=== PATIENT | male | born 1960 | race Caucasian/White ===

== ENCOUNTER 2019-06-25 09:30 | Outpatient (CLI) | payer MEDICARE, SELFPAY ==
[2019-06-25 09:49] LABS: Hemoglobin A1C 5.9 % (<5.7)
[2019-06-25 16:15] LABS: Alanine Aminotransferase 25 U/L (16-63); Albumin Level 3.8 g/dL (3.4-5.0); Alkaline Phosphatase 86 U/L (46-116); Aspartate Amino Transferase 19 U/L (15-37); Bilirubin,Total 0.7 mg/dL (0.00-1.00); Blood Urea Nitrogen 11 mg/dL (7-18); Calcium 9.3 mg/dL (8.5-10.1); Carbon Dioxide 30 mmol/L (21-32); Cholesterol 175 mg/dL (0-200); Estimated Glomerular Filt Rate > 60; Glucose 105 mg/dL (70-99); HDL Direct 28 mg/dL (40-60); LDL Cholesterol Calculated 126 mg/dL (<130); Total Protein 7.5 g/dL (6.4-8.2); Triglycerides 107 mg/dL (0-150)
[2019-06-25 17:35] LABS: Anion Gap 15.4 mmol/L (7-16); Chloride 102 mmol/L (98-108); Osmolality Calculated 295 mOsm/kg (285-295); Potassium 4.4 mmol/L (3.5-5.1); Sodium 143 mmol/L (136-145)
== END 2019-06-25 09:31 | disposition home or self-care (01) ==
LOC: CHSLAB 09:31
PROVIDERS: PCP Internal Medicine; Visit Provider Internal Medicine
DX: E78.2 Mixed hyperlipidemia (principal); E11.9 Type 2 diabetes mellitus without complications
CPT/HCPCS: 36415; 80053; 80061; 83036

== ENCOUNTER 2019-09-13 09:37 | Outpatient (CLI) | payer MEDICARE, SELFPAY ==
[2019-09-13 09:57] LABS: Basophils Absolute Auto 0.03 K/mm3 (0.00-0.10); Basophils Percent Auto 0.3 % (0.0-1.0); Eosinophils Absolute Auto 0.22 K/mm3 (0.02-0.50); Eosinophils Percent Auto 2.1 % (1.0-6.0); Hematocrit 51.7 % (40.0-54.0); Hemoglobin 17.5 g/dL (14.0-18.0); Immature Granulocyte Absolute 0.04 K/mm3 (0.00-0.00); Immature Granulocyte Percent A 0.4 % (0.0-0.0); Lymphocytes Absolute Auto 2.45 K/mm3 (1.10-4.50); Lymphocytes Percent Auto 23.5 % (18.0-42.0); Mean Corpuscular HGB Conc 33.8 g/dL (32.0-36.0); Mean Corpuscular Hemoglobin 29.3 pg (27.0-31.0); Mean Corpuscular Volume 86.6 fL (78.0-102.0); Mean Platelet Volume 9.7 fl (8.7-11.0); Monocytes Absolute Auto 0.77 K/mm3 (0.10-0.90); Monocytes Percent Auto 7.4 % (2.0-11.0); Neutrophils Absolute Auto 6.9 K/mm3 (1.7-7.2); Neutrophils Percent Auto 66.3 % (50.0-70.0); Platelet Count Result 333 K/mm3 (150-420); Red Blood Count 5.97 M/mm3 (4.70-6.10); Red Cell Distribution Width 13.1 % (11.6-14.4); White Blood Count 10.4 K/mm3 (4.8-10.8)
[2019-09-13 09:58] LABS: Add Urine Microscopic? YES; Appearance Urine Clear (Clear); Bilirubin Urine Negative (Negative); Blood Urine Negative (Negative); Color Urine Yellow (Yellow); Glucose Urine UA Negative (Negative); Ketones Urine Negative (Negative); Leukocyte Esterase Ur Negative LEU/UL (Negative); Nitrate Urine Negative (Negative); Protein Urine 1+ (Negative)
[2019-09-13 10:08] LABS: Hemoglobin A1C 6.1 % (<5.7)
[2019-09-13 10:11] LABS: RBC Urine 0-2 /hpf (0-2); WBC Urine 0-3 /hpf (0-3)
[2019-09-13 10:12] LABS: Bacteria Urine Trace /hpf; Other Sediment Urine Spermatazoa /hpf
[2019-09-13 10:34] LABS: Creatinine Urine 172.75 mg/dL (40-278)
[2019-09-13 10:43] LABS: MALB Creatinine Ratio 7.5 mg/g (0-30)
[2019-09-13 11:03] LABS: Alanine Aminotransferase 26 U/L (16-63); Albumin Level 3.7 g/dL (3.4-5.0); Alkaline Phosphatase 89 U/L (46-116); Anion Gap 10.2 mmol/L (7-16); Aspartate Amino Transferase 21 U/L (15-37); Bilirubin,Total 0.9 mg/dL (0.00-1.00); Blood Urea Nitrogen 12 mg/dL (7-18); Carbon Dioxide 32 mmol/L (21-32); Chloride 101 mmol/L (98-108); Cholesterol 181 mg/dL (0-200); Creatine Kinase 176 U/L (39-308); Estimated Glomerular Filt Rate > 60; Glucose 103 mg/dL (70-99); HDL Direct 28 mg/dL (40-60); LDL Cholesterol Calculated 115 mg/dL (<130); Osmolality Calculated 287 mOsm/kg (285-295); Potassium 4.2 mmol/L (3.5-5.1); Prostate Specific Antigen 0.7 ng/mL (< OR = 4.0); Sodium 139 mmol/L (136-145); Total Protein 7.5 g/dL (6.4-8.2); Triglycerides 191 mg/dL (0-150); Uric Acid 6.5 mg/dL (3.5-7.2)
== END 2019-09-13 09:38 | disposition home or self-care (01) ==
PROVIDERS: PCP Internal Medicine; Visit Provider Internal Medicine
DX: E78.2 Mixed hyperlipidemia (principal); E79.0 Hyperuricemia without signs of inflammatory arthritis and tophaceous disease; I10 Essential (primary) hypertension; R73.01 Impaired fasting glucose; Z12.5 Encounter for screening for malignant neoplasm of prostate; N39.0 Urinary tract infection, site not specified
CPT/HCPCS: 36415; 80053; 80061; 81001; 82043; 82550; 83036; 84153; 84550; 85025; G0103

== ENCOUNTER 2020-03-20 11:13 | Outpatient (CLI) | payer MEDICARE, SELFPAY ==
[2020-03-20 11:29] LABS: Add Urine Microscopic? YES; Appearance Urine Clear (Clear); Bilirubin Urine Negative (Negative); Blood Urine Negative (Negative); Color Urine Yellow (Yellow); Glucose Urine UA Negative (Negative); Ketones Urine Trace (Negative); Leukocyte Esterase Ur Negative (Negative); Nitrate Urine Negative (Negative); Protein Urine 1+ (Negative)
[2020-03-20 11:33] LABS: Bacteria Urine Trace /hpf; RBC Urine 0-2 /hpf (0-2); WBC Urine 0-3 /hpf (0-3)
[2020-03-20 11:34] LABS: Mucus Urine Few /lpf
[2020-03-20 12:12] LABS: Hemoglobin A1C 5.9 % (<5.7)
[2020-03-20 12:27] LABS: Alanine Aminotransferase 20 U/L (16-63); Albumin Level 3.7 g/dL (3.4-5.0); Alkaline Phosphatase 76 U/L (46-116); Anion Gap 12 mmol/L (8-16); Aspartate Amino Transferase 19 U/L (15-37); Blood Urea Nitrogen 13 mg/dL (7-18); Calcium 9.1 mg/dL (8.5-10.1); Carbon Dioxide 25 mmol/L (21-32); Chloride 100 mmol/L (98-108); Cholesterol 143 mg/dL (0-200); Estimated Glomerular Filt Rate > 60; Glucose 150 mg/dL (70-99); HDL Direct 24 mg/dL (40-60); LDL Cholesterol Calculated 99 mg/dL (<130); Osmolality Calculated 287 mOsm/kg (285-295); Potassium 4.2 mmol/L (3.5-5.1); Sodium 137 mmol/L (136-145); Total Protein 7.3 g/dL (6.4-8.2); Triglycerides 101 mg/dL (0-150); Uric Acid 6.1 mg/dL (3.5-7.2)
== END 2020-03-20 11:14 | disposition home or self-care (01) ==
LOC: CHSLAB 11:16
PROVIDERS: PCP Internal Medicine; Visit Provider Internal Medicine
DX: E11.9 Type 2 diabetes mellitus without complications (principal); E78.2 Mixed hyperlipidemia; I10 Essential (primary) hypertension; E79.0 Hyperuricemia without signs of inflammatory arthritis and tophaceous disease
CPT/HCPCS: 36415; 80053; 80061; 81001; 83036; 84550

== ENCOUNTER 2020-04-11 14:50 | Emergency (ER) | payer MEDICARE, MEDICAID, SELFPAY ==
--- NOTE | ~2020-04-11 | XR_ITS ---
EXAMINATION: XR chest 1V portable INDICATION: Lower limb swelling TECHNIQUE: Portable AP chest at 1537 hours COMPARISON: None available FINDINGS: Cardiomegaly is noted. There is a mild diffuse interstitial pattern. No focal airspace opac ities are identified. There is no pleural effusion or pneumothorax. IMPRESSION: 1. Cardiomegaly with mild pulmonary edema. Reviewed, dictated and finalized at location A. L SECRETARY RECEPTIONIST
[2020-04-11 15:00] VITALS: BP 159/111; PULSE 113; RESP 20; TEMP 36.6; O2SAT 100
--- NOTE | 2020-04-11 15:16 | ED.EXTPRO ---
HPI - Extremity Problem General Chief complaint: Extremity Problem,Nontraumatic Stated complaint: AMB Source: patient Mode of arrival: EMS Limitations: no limitations History of Present Illness HPI Narrative: Pt presents with recent history of blisters on top of feet. He had guillan barre in the late and has regained some strength but not too much. He can transfer, and walk a little with the aid of crutches, but is mostly bed bound. He had on his tet hose and noticed they were bunched up. he took them off and his legs began to swell. They got more swollen and he elevated them, then began to notice these clear fluid pockets developing. He has not haad heat or cold exposure, no traume to the area, and has no other illness. He said they are not painful at all, and tells me he has good feeling in his feet. He feels at his baseline otherwise. He is SOB- but this is chronic for him, and states it is his baseline. He has no CP, or any other findings. MD Complaint: extremity swelling Onset (ago): hour(s) Location: left and right Radiation: none (no pain at all, just noticed swelling blisters) Relieving factors: nothing Associated symptoms: denies other symptoms Related Data Home Medications Medication Instructions Recorded Confirmed allopurinol 200 mg PO BID 04/11/20 04/11/20 amlodipine 10 mg PO DAILY 04/11/20 04/11/20 amoxicillin-pot clavulanate 1 tablet PO BID 04/11/20 04/11/20 atorvastatin 20 mg PO DAILY 04/11/20 04/11/20 bupropion HCl 150 mg PO BID 04/11/20 04/11/20 famotidine 20 mg PO BID 04/11/20 04/11/20 hydralazine 100 mg PO QID 04/11/20 04/11/20 paroxetine HCl 40 mg PO DAILY 04/11/20 04/11/20 tizanidine 4 mg PO Q8-10H PRN 04/11/20 04/11/20 Allergies Allergy/AdvReac Type Severity Reaction Status Date / Time No Known Allergies Allergy Unverified 06/13/14 09:17 Review of Systems Review of Systems: All systems reviewed & are unremarkable except as noted in HPI and below Cardiovascular: Cardiovascular: Reports no additional cardiovascular complaints Respiratory: Respiratory: Reports no additional respiratory complaints Comments: always sob with any exertion- he says he doesnt do much activity so anything makes him SOB Gastrointestinal: Gastrointestinal: Reports no additional gastrointestinal complaints Genitourinary: Genitourinary: Reports as per HPI Musculoskeletal: Musculoskeletal: Reports no additional musculoskeletal complaints Integumentary/Breasts: Skin/Breast: Reports system reviewed and no additional complaints, except as docu Comments: clear blisters on top of bilat feet Neurologic: Reports system reviewed and no additional complaints, except as documented Psychiatric: Psychiatric: Reports no additional psychiatric complaints Endocrine: Endocrine: Reports no additional endocrine complaints Hematologic/Lymphatic: Hematologic/Lymphatic: Reports no additional hematologic/lymphatic complaints Allergic/Immunologic: Allergic/Immunologic: Reports no additional allergic/immunologic complaints [facility] Past Medical History Medical History (Updated 04/11/20 @ 16:11 by Kathryn Lo MD) 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 History of alcohol abuse History of recent pneumonia Shortness of breath Social History Social History (Updated 04/11/20 @ 15:24 by Kathryn Lo MD) Smoking status: Never smoker Alcohol intake: former Alcohol use details: quit 1 month ago Substance use: never Exam Const: General: no acute distress and alert Orientation/consciousness: patient oriented x3 HENMT: Head: normal to inspection Mouth: Yes moist mucous membranes Eyes: Conjunctivae: conjunctivae normal Pupils: Equal, round and reactive pupils present EOM: EOMs intact bilaterally Neck: Neck: normal visual inspection Chest: Chest palpation & inspection: normal inspection of the chest Resp: Effort & Inspection: labored (but pt states this is baseline) Auscultation: clear to auscultation
[2020-04-11 15:30] LABS: Basophils Absolute Auto 0.03 K/mm3 (0.00-0.10); Basophils Percent Auto 0.4 % (0.0-1.0); Eosinophils Absolute Auto 0.11 K/mm3 (0.02-0.50); Eosinophils Percent Auto 1.3 % (1.0-6.0); Hematocrit 50.3 % (40.0-54.0); Hemoglobin 15.8 g/dL (14.0-18.0); Immature Granulocyte Absolute 0.03 K/mm3 (0.00-0.00); Immature Granulocyte Percent A 0.4 % (0.0-0.0); Lymphocytes Absolute Auto 1.87 K/mm3 (1.10-4.50); Mean Corpuscular HGB Conc 31.4 g/dL (32.0-36.0); Mean Corpuscular Hemoglobin 27.9 pg (27.0-31.0); Mean Corpuscular Volume 88.7 fL (78.0-102.0); Mean Platelet Volume 9.7 fl (8.7-11.0); Monocytes Absolute Auto 0.83 K/mm3 (0.10-0.90); Monocytes Percent Auto 9.8 % (2.0-11.0); Neutrophils Absolute Auto 5.6 K/mm3 (1.7-7.2); Neutrophils Percent Auto 66.1 % (50.0-70.0); Platelet Count Result 399 K/mm3 (150-420); Red Blood Count 5.67 M/mm3 (4.70-6.10); Red Cell Distribution Width 14.3 % (11.6-14.4); White Blood Count 8.5 K/mm3 (4.8-10.8)
[2020-04-11 15:45] LABS: Alanine Aminotransferase 39 U/L (16-63); Albumin Level 3.4 g/dL (3.4-5.0); Alkaline Phosphatase 72 U/L (46-116); Anion Gap 10 mmol/L (8-16); Aspartate Amino Transferase 27 U/L (15-37); Bilirubin,Total 1.1 mg/dL (0.00-1.00); Blood Urea Nitrogen 19 mg/dL (7-18); Calcium 9.2 mg/dL (8.5-10.1); Carbon Dioxide 29 mmol/L (21-32); Chloride 102 mmol/L (98-108); Estimated Glomerular Filt Rate > 60; Glucose 156 mg/dL (70-99); Osmolality Calculated 297 mOsm/kg (285-295); Potassium 4.3 mmol/L (3.5-5.1); Sodium 141 mmol/L (136-145); Total Protein 7.3 g/dL (6.4-8.2)
[2020-04-11 15:47] LABS: BNP 460 pg/mL (0-100)
[2020-04-11] MEDS: FUROSEMIDE 40 MG TABLET PO (16:09)
[2020-04-11 16:25] VITALS: RESP 17
== END 2020-04-11 16:30 | disposition home or self-care (01) ==
PROVIDERS: Emergency Provider Emergency Medicine; PCP Internal Medicine
DX: S90.822A Blister (nonthermal), left foot, initial encounter (principal); S90.821A Blister (nonthermal), right foot, initial encounter; R60.0 Localized edema; R06.02 Shortness of breath
CPT/HCPCS: 10160; 36415; 71045; 80053; 83880; 85025; 87070; 87205; 99282; 99283; A9270

== ENCOUNTER 2020-04-22 11:56 | Outpatient (CLI) | payer MEDICARE, MEDICAID, SELFPAY ==
--- NOTE | ~2020-04-22 | US_ITS ---
EXAMINATION: US venous doppler [facility] DATE: 04/22/2020 13:06 INDICATION: Lower limb pain and swelling TECHNIQUE: Grayscale ultrasound images without and with compression and Doppler ultrasound images of the bilateral lower extremity veins were obtained. COMPARISON: None. FINDINGS: The visualized portions of right common femoral vein, profunda (deep) femoral vein, femoral vein, pop liteal vein, posterior tibial veins, peroneal veins, gastrocnemius vein and greater saphenous vein ou tflow are patent. The visualized portions of left common femoral vein, profunda femoral vein, femoral vein, popliteal v ein, posterior tibial veins, peroneal veins, gastrocnemius vein and greater saphenous vein outflow ar e patent. IMPRESSION: 1. No deep venous thrombosis in either lower limb. Reviewed, dictated and finalized at location A. UME MAKER
--- NOTE | ~2020-04-22 | CT_ITS ---
EXAMINATION: CTA abd aorta runoff DATE: 04/22/2020 13:39 INDICATION: Peripheral arterial occlusive disease and clinically ischemic feet with lower limb pain a nd swelling TECHNIQUE: Computed tomographic angiography (CTA) of the abdominal, pelvis, and both lower extremitie s was performed with 125 mL Omnipaque 350 intravenous contrast. Automated exposure control and iterat curt reconstruction technique were employed. The dose-length product was mGy-cm. COMPARISON: None. FINDINGS: ABDOMINAL AORTA AND ITS BRANCHES: Normal caliber abdominal aorta with minimal scattered plaque without stenosis. There is also no signi ficant stenosis at the celiac axis, superior mesenteric, inferior mesenteric and bilateral renal tinana magalys. PELVIC VASCULATURE: Mild atherosclerotic plaque with mild opacities (<50%) stenosis at the proximal right common iliac, a t the distal left iliac artery at the bifurcation. No significant stenosis along the bilateral program developer al or internal iliac arteries. There appears to be a high-grade stenosis if not short segmental occlu eveline along the proximal right obturator artery. RIGHT LOWER EXTREMITY: There is scattered atherosclerotic plaque along the right common femoral, superficial femoral and pro ximal to mid popliteal arteries with <50% stenosis. Focal atherosclerotic plaque with moderate 50-70% stenosis at the distalmost right popliteal artery extending into the proximal anterior tibial artery with runoff anterior tibial artery extending below the ankle into the dorsalis pedis artery. There i s high attenuation seen along the periphery of the right posterior tibial artery and along portions o f the peroneal artery likely representing vascular ossification with no evident central contrast or c ontrast along the course of the arteries where there is no calcification in the proximal third of the calf consistent with occlusion. There appears to be reconstitution of flow in both the right posteri or tibial and peroneal arteries by collaterals in the mid to distal calf. The more distal posterior t ibial and peroneal arteries appear atretic to the level of the ankle. LEFT LOWER EXTREMITY: Similar scattered atherosclerotic plaque along the left common femoral, superficial femoral and proxi mal to mid popliteal artery with <50% stenosis. There is also a moderate, 50-70% stenosis at the bifu rcation of the distal left popliteal artery. Scattered mild atherosclerotic plaque along the left ant erior tibial artery with runoff below the ankle. Severe >70% stenosis at the tibioperoneal trunk with barely discernible contrast seen along the course of the atretic left peroneal artery. The left post erior tibial artery is occluded to below the level of the ankle with reconstitution of flow in the pl meet artery in the left hindfoot via collaterals. ADDITIONAL FINDINGS: Small right pleural effusion with passive atelectasis in the dependent right lower lobe. Tiny left pl eural effusion. Borderline heart size. Atherosclerotic coronary artery calcification. No pericardial effusion. Diffuse body wall edema extending from the lower thorax without the abdomen and pelvis, scr otum and into the bilateral lower limbs. Small amount of ascites in the abdomen and pelvis. Multiple gallstones in the nearly decompressed gallbladder with no pericholecystic inflammatory change to sugg est acute cholecystitis. Liver, spleen, pancreas, bilateral adrenal glands and left kidney are normal . 1.4 cm exophytic right renal cyst. No bowel obstruction. Bladder is unremarkable. Mild scattered de generative skeletal changes. IMPRESSION: 1. Atherosclerotic disease with relatively symmetric pattern of moderate grade stenosis at the dista lmost bilateral popliteal arteries and with occlusion of the bilateral posterior tibial and left clint yani arteries. 2. Anasarca with small right and tiny left pleural effusions, extensive body
[2020-04-22 12:08] LABS: Basophils Absolute Auto 0.02 K/mm3 (0.00-0.10); Basophils Percent Auto 0.2 % (0.0-1.0); Eosinophils Absolute Auto 0.04 K/mm3 (0.02-0.50); Eosinophils Percent Auto 0.4 % (1.0-6.0); Hematocrit 50.2 % (40.0-54.0); Hemoglobin 16.1 g/dL (14.0-18.0); Immature Granulocyte Absolute 0.03 K/mm3 (0.00-0.00); Immature Granulocyte Percent A 0.3 % (0.0-0.0); Lymphocytes Absolute Auto 1.32 K/mm3 (1.10-4.50); Lymphocytes Percent Auto 14.3 % (18.0-42.0); Mean Corpuscular HGB Conc 32.1 g/dL (32.0-36.0); Mean Corpuscular Hemoglobin 27.8 pg (27.0-31.0); Mean Corpuscular Volume 86.6 fL (78.0-102.0); Mean Platelet Volume 9.8 fl (8.7-11.0); Monocytes Absolute Auto 0.76 K/mm3 (0.10-0.90); Monocytes Percent Auto 8.2 % (2.0-11.0); Neutrophils Absolute Auto 7.1 K/mm3 (1.7-7.2); Neutrophils Percent Auto 76.6 % (50.0-70.0); Platelet Count Result 342 K/mm3 (150-420); Red Cell Distribution Width 14.7 % (11.6-14.4); White Blood Count 9.2 K/mm3 (4.8-10.8)
[2020-04-22 12:21] LABS: Estimated Glomerular Filt Rate > 60
[2020-04-22 12:25] LABS: Alanine Aminotransferase 24 U/L (16-63); Albumin Level 3.5 g/dL (3.4-5.0); Alkaline Phosphatase 70 U/L (46-116); Anion Gap 12 mmol/L (8-16); Aspartate Amino Transferase 27 U/L (15-37); Bilirubin,Total 1.2 mg/dL (0.00-1.00); Blood Urea Nitrogen 19 mg/dL (7-18); Calcium 9.4 mg/dL (8.5-10.1); Carbon Dioxide 27 mmol/L (21-32); Chloride 99 mmol/L (98-108); Glucose 94 mg/dL (70-99); Osmolality Calculated 288 mOsm/kg (285-295); Potassium 3.8 mmol/L (3.5-5.1); Sodium 138 mmol/L (136-145); Total Protein 7.1 g/dL (6.4-8.2)
[2020-04-22 12:54] LABS: D Dimer 1.56 mg/L (0.19-0.50)
== END 2020-04-22 11:57 | disposition home or self-care (01) ==
LOC: CHSLAB 11:58
PROVIDERS: PCP Internal Medicine; Visit Provider Internal Medicine
DX: I73.9 Peripheral vascular disease, unspecified (principal); M79.89 Other specified soft tissue disorders; M79.605 Pain in left leg; M79.604 Pain in right leg
CPT/HCPCS: 36415; 75635; 80053; 85025; 85380; 93970; Q9967

== ENCOUNTER 2020-04-22 15:41 | Inpatient (IN) | payer MEDICARE, MEDICAID, SELFPAY ==
--- NOTE | ~2020-04-22 | US_ITS ---
EXAMINATION: US arterial ankle brachial ind DATE: 04/23/2020 14:35 INDICATION: Arterial stenosis with bilateral foot ulcers TECHNIQUE: Segmental pressures and plethysmographic and Doppler waveforms of the brachial and lower e xtremity arteries were obtained. COMPARISON: None. FINDINGS: Right and left brachial artery pressures of 135 mm Hg and 144 mm Hg, respectively, are concordant (no rmal difference <= 30 mmHg). The right ankle-brachial index (ALEJANDRA) is 1.15 (normal >= 0.9-1.0). The right great toe-brachial index (TBI) is 0.75 (normal >= 0.65). Arterial Doppler waveforms are biphasic with brisk systolic upstrokes at both the right posterior tibial and dorsalis pedis arteries. The left ALEJANDRA is 1.10. The left TBI is 0.70. Arterial Doppler waveforms are inadequately visualized fo r assessment. IMPRESSION: 1. No significant arterial occlusive disease to the lower limbs with normal bilateral ABIs and TBIs. Reviewed, dictated and finalized at location A. AL TRANSPORTATION MANAGER IMPRESSION: 1. No significant arterial occlusive disease to the lower limbs with normal shanel ateral ABIs and TBIs.
--- NOTE | ~2020-04-22 | CT_ITS ---
EXAMINATION: CTA chest PE protocol EXAM DATE: 04/23/2020 10:07 INDICATION: Shortness of breath. TECHNIQUE: Spiral CTA of the chest (pulmonary arteries) was performed with 100 cc Omnipaque 350 intr avenous contrast injection. Images were acquired during the pulmonary arterial phase. Coronal maxi mum intensity projection 3D-reconstructions were created by the technologist on dedicated workstation . Axial, coronal and sagittal reformatted images were reviewed. The dose-length product (DLP) for t his examination was 1128.70 mGy-cm. The exposure was tailored according to patient size (auto mA ex posure control), and iterative reconstruction (ASIR) was used as additional dose reduction technique. Correlation is made to chest x-ray from 04/11/2020. FINDINGS: Pulmonary arteries are well opacified and without intraluminal filling defects. No thora cic aortic dissection. There is small to moderate pleural effusion, with adjacent right lower lobe c ompressive atelectasis. Small pericardial effusion. Tracheobronchial tree is patent. There is no m ediastinal, hilar or axillary lymphadenopathy. There is no pneumothorax. There is cardiomegaly. There is mild to moderate coronary arterial calcification, arterial sclerosis. Small to moderate amou nt of perihepatic ascites. Cholelithiasis. There is thoracic spondylosis without osteoblastic or ost eolytic lesions identified. IMPRESSION: 1. Small to moderate pleural effusion, adjacent segmental atelectasis. 2. Cardiomegaly. Small pericardial effusion. 3. Small to moderate perihepatic ascites. 4. Cholelithiasis. Reviewed, dictated and finalized at location B. PLATER
--- NOTE | 2020-04-22 16:19 | ECG_ITS ---
Measurements Intervals [place] Rate: 108 P: 67 [place]: 156 QRS: -41 QRSD: 105 T: 95 QT: 367 QTc: 493 Interpretive Statements SINUS TACHYCARDIA INCOMPLETE RIGHT BUNDLE BRANCH BLOCK LOW QRS VOLTAGE IN PRECORDIAL LEADS ANTEROLATERAL INFARCT, AGE INDETERMINATE INFERIOR INFARCT, AGE INDETERMINATE BORDERLINE ST-T WAVE ABNORMALITY- HIGH LATERAL LEADS ABNORMAL ECG Electronically Signed On 04-22-2020 16:35:00 PRINCIPAL PRODUCT MANAGER by Silvino Trotter D.O.
[2020-04-22 17:16] VITALS: BP 140/90; PULSE 90; RESP 18; TEMP 38.3; O2SAT 95
[2020-04-22 17:31] LABS: BNP 600 pg/mL (0-100); INR 1.5; Partial Thromboplastin Time 32.5 SEC (23.90-30.70); Prothrombin Time 15.7 Seconds (9.50-12.10)
[2020-04-22 17:32] LABS: Lactic Acid Reflex 2.3 mmol/L (0.4-2.0)
[2020-04-22 17:33] LABS: Troponin I 31.4 ng/L (0.00-60.4)
[2020-04-22 19:10] VITALS: BP 142/90; PULSE 102; RESP 22; TEMP 38.2; O2SAT 98
--- NOTE | 2020-04-22 19:10 | ED.GENADULT ---
HPI - General Adult General Chief complaint: Unspecified Stated complaint: sent by doctors Source: patient Mode of arrival: ambulatory Limitations: no limitations History of Present Illness HPI narrative: Patient is sent over from Dr Mcgraw's office after being seen earlier today. He has complained of not feeling well. He has had some mild shortness of breath over the past couple of days and has stated that his feet have been swollen which he noticed starting this am. He has had no chest pain. Onset (ago): hour(s) Location: lower extremity Quality: burning Pain Consistency: constant Relieving factors: none Related Data Home Medications Medication Instructions Recorded Confirmed allopurinol [Zyloprim] 200 mg PO BID 04/11/20 04/22/20 amlodipine [Norvasc] 10 mg PO DAILY 04/11/20 04/22/20 amoxicillin-pot clavulanate 1 tablet PO BID 04/11/20 04/22/20 atorvastatin 20 mg PO DAILY 04/11/20 04/22/20 bupropion HCl 150 mg PO BID 04/11/20 04/22/20 famotidine 20 mg PO BID 04/11/20 04/22/20 hydralazine 100 mg PO QID 04/11/20 04/22/20 paroxetine HCl 40 mg PO DAILY 04/11/20 04/22/20 tizanidine 4 mg PO Q8-10H PRN 04/11/20 04/22/20 Allergies Allergy/AdvReac Type Severity Reaction Status Date / Time No Known Allergies Allergy Unverified 06/13/14 09:17 Review of Systems Constitutional: Constitutional: Reports body ache(s), Reports fatigue and Reports lethargy Eyes: Eyes: Reports no additional eye complaints ENT: Reports system reviewed and no additional complaints, except as documented Cardiovascular: Cardiovascular: Reports no additional cardiovascular complaints Respiratory: Respiratory: Reports no additional respiratory complaints Gastrointestinal: Gastrointestinal: Reports no additional gastrointestinal complaints Genitourinary: Genitourinary: Reports no additional male genitourinary complaints Musculoskeletal: Musculoskeletal: Reports no additional musculoskeletal complaints Integumentary/Breasts: Skin/Breast: Reports system reviewed and no additional complaints, except as docu Neurologic: Reports system reviewed and no additional complaints, except as documented Psychiatric: Psychiatric: Reports no additional psychiatric complaints Endocrine: Endocrine: Reports no additional endocrine complaints Hematologic/Lymphatic: Hematologic/Lymphatic: Reports no additional hematologic/lymphatic complaints Allergic/Immunologic: Allergic/Immunologic: Reports no additional allergic/immunologic complaints [facility] Past Medical History Medical History 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 History of alcohol abuse History of recent pneumonia Shortness of breath Family History Family History (Updated 04/23/20 @ 05:58 by Joaquín Umaña MD) Father Family history non-contributory Social History Social History Smoking packs per day: 1 Smoking cigarettes per day: 20.0 Smoking status: Former smoker Tobacco type: cigarettes Smokeless tobacco user: chewing tobacco Second hand tobacco smoke exposure: No Smoking end date: 02/28/94 Alcohol intake: former Substance use: former Gender identity (if verbalized by the patient): Male Sexual Orientation (if Verbalized by the Patient): Straight or Heterosexual Spiritual care concerns: No Exam Const: General: cooperative, no acute distress, well developed and alert Nutritional Appearance: obese Orientation/consciousness: oriented to person and oriented to place Limitations: no limitations HENMT: Head: normal to inspection, normocephalic and atraumatic Ears: external ears normal General nose exam: Normal external nose present Face and sinus: normal facial exam Mouth: Yes Normal oral and palatal mucosa present and Yes oropharynx normal Throat: posterior oropharynx normal Eyes: General: appearance normal, both eyes and all related structures Neck: Neck: normal visual ins
[2020-04-22] MEDS: POTASSIUM CHLORIDE 20 MEQ TABLET 40 MEQ PO (19:23)
[2020-04-22] MEDS: FUROSEMIDE INJ 40 MG/4 ML VIAL IV PUSH (19:23)
[2020-04-22 19:52] VITALS: BMI 42.7
--- NOTE | 2020-04-22 19:57 | ADMGEN ---
This patient, Otis Diaz, was admitted to 2nd Floor Room 204-2. Patient oriented to hospital policies and general routines including ID bracelet, bed and alarms, visiting hours, pain management, procedures, bathroom and other care routines, personal items, smoking policy, room service/diet, and visiting hours. Information on how to activate the Rapid Response Team has been discussed. Patient are encouraged to report perceived risks to care and to ask questions if they do not understand what they are told or what they should do.
[2020-04-22 20:00] VITALS: BP 142/86; PULSE 106; RESP 20; TEMP 36; O2SAT 99
[2020-04-22 20:10] LABS: Reflex Lactic Acid Yes or No Add Lactic
[2020-04-22 21:08] LABS: Add Urine Microscopic? NO; Appearance Urine Clear (Clear); Bilirubin Urine Negative (Negative); Blood Urine Negative (Negative); Color Urine Yellow (Yellow); Glucose Urine UA Negative (Negative); Ketones Urine Negative (Negative); Leukocyte Esterase Ur Negative (Negative); Nitrate Urine Negative (Negative); Protein Urine Negative (Negative)
--- NOTE | 2020-04-22 21:30 | PC.NURSE ---
Bilateral feet are shiny, edematous and very red. Each foot has a popped blister on the top which has a scant amount of serous/clear drainage. Both feet cleansed with saf-clens, then a non-adherent pad, gauze pads and gauze roll applied. Patient tolerated well and slept through most of the dressing changes.
[2020-04-22] MEDS: hydrALAZINE HCL 25 MG TABLET 100 MG PO (21:47)
[2020-04-22 23:58] VITALS: BP 144/95; PULSE 102; RESP 22; TEMP 36.3; O2SAT 97
[2020-04-23] VITALS (8 sets, daily range): BP systolic 130–145; BP diastolic 84–114; PULSE 97–108; RESP 18–20; TEMP 36.1–37.1; O2SAT 95–97
[2020-04-23 06:22] LABS: Anion Gap 14 mmol/L (8-16); Blood Urea Nitrogen 15 mg/dL (7-18); Calcium 9.5 mg/dL (8.5-10.1); Carbon Dioxide 24 mmol/L (21-32); Chloride 102 mmol/L (98-108); Estimated CRCL calculation 90 ml/min; Estimated Glomerular Filt Rate > 60; Glucose 108 mg/dL (70-99); Lactic Acid Reflex 1.4 mmol/L (0.4-2.0); Magnesium 1.7 mg/dL (1.8-2.4); Osmolality Calculated 291 mOsm/kg (285-295); Potassium 4.1 mmol/L (3.5-5.1); Sodium 140 mmol/L (136-145)
[2020-04-23 06:32] LABS: Troponin I 33.2 ng/L (0.00-60.4)
--- NOTE | 2020-04-23 08:10 | ECHO_ITS ---
Patient Info Name: Otis Diaz Age: 59 years : 1960 Gender: Male Ht: 68 in Wt: 281 lbs BSA: 2.54 m2 HR: 148 bpm BP: 145 / 114 mmHg Heart Rhythm: Sinus Rhythm Technical Quality: Fair Exam Date: 04/23/2020 8:52 AM Exam Location: [facility] [place] Patient Status: Inpatient Admit Date: 04/22/2020 Staff Ordering Physician: Irma Rivas Director Of Rehabilitation And Wellness: Aissatou Lan RDCS Attending Provider: Joaquín Umaña MD Referring Physician: Rob LONG; Exam Type: CA echo doppler color flow Study Info Indications R60.9 - Edema, unspecified Complete two-dimensional, color flow and Doppler transthoracic echocardiogram is performed. Strain analysis performed. History/Risk Factors Hypertension: No Dyslipidemia: No Congenital Heart Disease (CHD): No Chronic Lung Disease: No Obesity: Yes Renal Disease: No Coronary Artery Disease (CAD) No Congestive Heart Failure (CHF): No Cardiomyopathy/LV Systolic Dysfunction: No Diabetes Mellitus: No COPD: No Tobacco Use: Former Cerebrovascular Disease: No Deep Vein Thrombosis (DVT): None Dialysis: None Frailty Scale (CSHA): 4: Vulnerable Cardiac Arrest: No Summary 1. Complete two-dimensional, color flow and Doppler transthoracic echocardiogram is performed. 2. Left ventricular chamber dimension is severely enlarged. 3. Anteroseptal, septal and apical wall are akinetic. 4. Left ventricular systolic function is severely reduced, estimated at 30-35%. 5. There is mildly increased left ventricular wall thickness. 6. The left ventricular diastolic function is indeterminate. 7. Global longitudinal strain is abnormal at -6.6%. 8. Left atrial chamber dimension is moderately enlarged. 9. There is mild aortic valve sclerosis. 10. The mitral valve has mildly thickened leaflets. 11. There is mild to moderate mitral valve regurgitation. 12. There is mild to moderate tricuspid valve regurgitation. 13. Mild pulmonary hypertension, estimated pulmonary arterial systolic pressure is 43 mmHg. 14. There is trace pulmonic regurgitation. 15. Dilated inferior vena cava with >50% collapse upon inspiration consistent with elevated right atrial pressure, 10 mmHg. Left Ventricle Tissue doppler is not performed. Global longitudinal strain is abnormal at -6.6%. Anteroseptal, septal and apical wall are akinetic. Left ventricular chamber dimension is severely enlarged. Left ventricular systolic function is severely reduced, estimated at 30-35%. There is mildly increased left ventricular wall thickness. The left ventricular diastolic function is indeterminate. Right Ventricle Right ventricular chamber dimension is not well visualized. Left Atria Left atrial chamber dimension is moderately enlarged. Right Atria Right atrial chamber dimension is not well visualized. Aortic Valve The aortic valve is trileaflet. There is mild aortic valve sclerosis. There is no aortic valve stenosis. There is no aortic valve regurgitation. Pulmonic Valve There is trace pulmonic regurgitation. Mitral Valve The mitral valve has mildly thickened leaflets. There is no mitral valve stenosis. There is mild to moderate mitral valve regurgitation. Tricuspid Valve There is mild to moderate tricuspid valve regurgitation. Mild pulmonary hypertension, estimated pulmonary arterial systolic pressure is 43 mmHg. Pericardium/Pleural There is no pericardial effusion.
[2020-04-23] MEDS: FUROSEMIDE INJ 40 MG/4 ML VIAL IV PUSH ×2 (10:10→16:57)
[2020-04-23] MEDS: hydrALAZINE HCL 25 MG TABLET 100 MG PO ×4 (10:10→21:23)
[2020-04-23] MEDS: carvediloL 3.125 MG TABLET PO ×2 (10:10→21:23)
[2020-04-23] MEDS: ENOXAPARIN 40 MG/0.4 ML SYRINGE SUB-Q (10:10)
[2020-04-23] MEDS: POTASSIUM CHLORIDE 20 MEQ TABLET 40 MEQ PO ×2 (10:11→16:58)
[2020-04-23] MEDS: PARoxetine 20 MG TABLET 40 MG PO (10:11)
[2020-04-23] MEDS: amLODIPine BESYLATE 5 MG TABLET 10 MG PO (10:11)
[2020-04-23] MEDS: MAGNESIUM OXIDE 400 MG TABLET PO (10:12)
[2020-04-23] MEDS: allopurinoL 100 MG TABLET 200 MG PO ×2 (10:12→16:59)
[2020-04-23] MEDS: FAMOTIDINE 20 MG TABLET PO ×2 (10:12→16:59)
[2020-04-23] MEDS: ATORVASTATIN 10 MG TABLET 20 MG PO (10:12)
--- NOTE | 2020-04-23 13:15 | PM.IMHP ---
H&P: HPI History of Present Illness Date/Time: 04/23/20 13:15 Chief Complaint: PAD, congestive heart failure, cellulitis Narrative: Otis Diaz is a 59 year old male that presented to his primary care physician with complaints of lower extremity swelling and redness. Patient has a past medical history of Yury Dyer syndrome, history of alcohol abuse and pneumonia and shortness of breath. According to patient he started experiencing edema with erythema and shortness of breath a couple days ago. Patient did visit our ED on 03-11 and the I&D was completed on patient's lower extremity patient was given Bactrim at that time. Patient condition has not improved. His WBC on admission was 9.2 his D-dimer was 1.56, sodium 138, potassium 3.8, BUN 19, creatinine 1.12 lactic acid 2.3, BUN 600. The patient denies SOB, CP, palpitation, extremity numbness, lightheadedness, dizziness, constipation, diarrhea, chills, or fever. Spoke with patient's primary care physician Dr. Mcgraw recommended that the patient be transferred to [facility] for consult for vascular surgery. Spoke with the hospitalist over at [facility] she recommend a ALEJANDRA be completed on patient . She also notes the patient should follow-up with vascular surgeon as outpatient . Lower extremity blood flow checked with Doppler left leg sluggish right leg weak pulse. 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 History of alcohol abuse History of recent pneumonia Shortness of breath Family History Family History (Updated 04/23/20 @ 05:58 by Joaquín Umaña MD) Father Family history non-contributory Social History Social History Smoking packs per day: 1 Smoking cigarettes per day: 20.0 Smoking status: Former smoker Tobacco type: cigarettes Smokeless tobacco user: chewing tobacco Second hand tobacco smoke exposure: No Smoking end date: 02/28/94 Alcohol intake: former Substance use: former Gender identity (if verbalized by the patient): Male Sexual Orientation (if Verbalized by the Patient): Straight or Heterosexual Spiritual care concerns: No Meds Home Medications and Allergies Home Medications Medication Instructions Recorded Confirmed Type allopurinol [Zyloprim] 200 mg PO BID 04/11/20 04/22/20 History amlodipine [Norvasc] 10 mg PO DAILY 04/11/20 04/22/20 History amoxicillin-pot clavulanate 1 tablet PO BID 04/11/20 04/22/20 History atorvastatin 20 mg PO DAILY 04/11/20 04/22/20 History bupropion HCl 150 mg PO BID 04/11/20 04/22/20 History famotidine 20 mg PO BID 04/11/20 04/22/20 History hydralazine 100 mg PO QID 04/11/20 04/22/20 History paroxetine HCl 40 mg PO DAILY 04/11/20 04/22/20 History tizanidine 4 mg PO Q8-10H PRN 04/11/20 04/22/20 History Allergies Allergy/AdvReac Type Severity Reaction Status Date / Time No Known Allergies Allergy Unverified 06/13/14 09:17 Vital Signs Vital Signs - 24 hr 04/22/20 17:16 04/22/20 19:10 04/22/20 20:00 Temperature 100.9 F H 100.8 F H 96.8 F L Pulse Rate 90 102 H 106 H Respiratory Rate 18 22 H 20 Blood Pressure 140/90 142/90 H 142/86 H Pulse Oximetry 95 98 99 04/22/20 23:58 04/23/20 04:00 04/23/20 07:35 Temperature 97.3 F L 97.6 F 97.3 F L Pulse Rate 102 H 104 H 108 H Respiratory Rate 22 H 20 18 Blood Pressure 144/95 H 144/96 H 145/114 H Pulse Oximetry 97 95 97 04/23/20 08:00 04/23/20 10:10 Temperature Pulse Rate 108 H 108 H Respiratory Rate Blood Pressure Pulse Oximetry Exam Narrative: Exam Narrative: GENERAL: This is a well-nourished, well-developed patient, obese medical dermatopathy in no apparent distress. HEAD: normocephalic, atraumatic. EYES: PERRL. Sclera clear/white. Vision i
--- NOTE | 2020-04-23 14:25 | PC.NURSE ---
Patient back to room from Ultrasound.
[2020-04-23] MEDS: ACETAMINOPHEN 325 MG TABLET 650 MG PO (14:36)
--- NOTE | 2020-04-23 22:00 | PC.NURSE ---
Patient resting in bed, no distress noted, call light and needed items within reach.
[2020-04-24] VITALS (9 sets, daily range): BP systolic 117–142; BP diastolic 85–107; PULSE 94–100; RESP 18–20; TEMP 36.2–36.9; O2SAT 95–98
[2020-04-24 05:33] LABS: Hematocrit 46.2 % (40.0-54.0); Hemoglobin 14.7 g/dL (14.0-18.0); Mean Corpuscular HGB Conc 31.8 g/dL (32.0-36.0); Mean Corpuscular Hemoglobin 27.7 pg (27.0-31.0); Mean Platelet Volume 10.2 fl (8.7-11.0); Platelet Count Result 315 K/mm3 (150-420); Red Blood Count 5.31 M/mm3 (4.70-6.10); White Blood Count 8.1 K/mm3 (4.8-10.8)
[2020-04-24 05:54] LABS: Alanine Aminotransferase 24 U/L (16-63); Albumin Level 3.4 g/dL (3.4-5.0); Alkaline Phosphatase 67 U/L (46-116); Anion Gap 12 mmol/L (8-16); Aspartate Amino Transferase 22 U/L (15-37); Blood Urea Nitrogen 15 mg/dL (7-18); Calcium 9.7 mg/dL (8.5-10.1); Carbon Dioxide 23 mmol/L (21-32); Chloride 100 mmol/L (98-108); Estimated CRCL calculation 91 ml/min; Estimated Glomerular Filt Rate > 60; Glucose 124 mg/dL (70-99); Magnesium 1.8 mg/dL (1.8-2.4); Osmolality Calculated 281 mOsm/kg (285-295); Potassium 4.2 mmol/L (3.5-5.1); Sodium 135 mmol/L (136-145); Total Protein 6.8 g/dL (6.4-8.2)
[2020-04-24 05:59] LABS: Lactic Acid Reflex 1.3 mmol/L (0.4-2.0)
[2020-04-24 07:48] LABS: BNP 466 pg/mL (0-100)
[2020-04-24] MEDS: ATORVASTATIN 10 MG TABLET 20 MG PO (08:42)
[2020-04-24] MEDS: FUROSEMIDE INJ 40 MG/4 ML VIAL IV PUSH ×2 (08:42→16:34)
[2020-04-24] MEDS: ENOXAPARIN 40 MG/0.4 ML SYRINGE SUB-Q (08:42)
[2020-04-24] MEDS: FAMOTIDINE 20 MG TABLET PO ×2 (08:43→16:34)
[2020-04-24] MEDS: PARoxetine 20 MG TABLET 40 MG PO (08:43)
[2020-04-24] MEDS: hydrALAZINE HCL 25 MG TABLET 100 MG PO ×4 (08:43→20:52)
[2020-04-24] MEDS: POTASSIUM CHLORIDE 20 MEQ TABLET 40 MEQ PO ×2 (08:44→16:34)
[2020-04-24] MEDS: MAGNESIUM OXIDE 400 MG TABLET PO (08:44)
[2020-04-24] MEDS: allopurinoL 100 MG TABLET 200 MG PO ×2 (08:44→16:34)
[2020-04-24] MEDS: carvediloL 3.125 MG TABLET PO ×2 (08:44→20:53)
[2020-04-24] MEDS: amLODIPine BESYLATE 5 MG TABLET 10 MG PO (08:45)
[2020-04-24] MEDS: HYDROcodone/acetaminophen (*CRX) 7.5-325 MG TABLET 1 TAB PO (09:37)
--- NOTE | 2020-04-24 10:36 | P.PN_ITS ---
Progress Note: A&P Assessment and Plan (1) CHF (congestive heart failure): Qualifiers: Heart failure chronicity: acute Heart failure type: right-sided Qualified Code(s): I50.811 - Acute right heart failure Code(s): I50.9 - Heart failure, unspecified Status: Acute Assessment and Plan: * Echo indicates systolic function is severely reduced estimated 30-35, severely enlarged left ventricle chamber, moderate tricuspid valve regurgitation, mild pulmonary hypertension * BNP elevated at 600-->466 * Continue Lasix 40 mg twice daily * Daily weight, review * Continue I's and O's, review (2) Cellulitis: Qualifiers: Laterality: unspecified laterality Site of cellulitis: extremity Site of cellulitis of extremity: lower extremity Qualified Code(s): L03.119 - Cellulitis of unspecified part of limb Code(s): L03.90 - Cellulitis, unspecified Status: Acute Assessment and Plan: * Continue Ancef and vancomycin * Blood culture pending * WBC within normal limit patient afebrile (3) Weakness: Code(s): R53.1 - Weakness Status: Acute Assessment and Plan: * PT OT consulted (4) Pulmonary hypertension: Code(s): I27.20 - Pulmonary hypertension, unspecified Status: Acute Assessment and Plan: * Echo indicates mild pulmonary hypertension estimated pulmonary arterial systol ic pressure at 43 mmHg * Continue Norvasc and carvedilol * Vital signs as ordered * Will adjust medication as * Continue telemetry (5) PAD (peripheral artery disease): Code(s): I73.9 - Peripheral vascular disease, unspecified Status: Acute Assessment and Plan: * CTA of the aorta indicate moderate grade stenosis at the distalmost bilateral popliteal arteries and with occlusion of the bilateral posterior tibial and left peroneal arteries. * Venous Doppler 1 04/21/2020 - for DVT neck * Pulses to lower extremities sluggish to the left and weak and weak to the right * ALEJANDRA No significant arterial occlusive disease to the lower limbs with normal bilateral ABIs and TBIs. (6) Elevated d-dimer: Code(s): R79.89 - Other specified abnormal findings of blood chemistry Status: Acute Assessment and Plan: * CTA negative for PE (7) Elevated lactic acid level: Code(s): R79.89 - Other specified abnormal findings of blood chemistry Status: Acute Assessment and Plan: * Lactic acid 2.3 on admission currently within normal limits (8) Sinus tachycardia: Code(s): R00.0 - Tachycardia, unspecified Status: Acute Assessment and Plan: * Controlled improved * EKG with sinus tach with a heart rate of 108 * Carvedilol 3.125 mg started * will adjust medication as needed * Telemetry telemetry Review of Systems Review of Systems: All systems reviewed & are unremarkable except as noted in HPI and below (12 point system completed) Exam Narrative: Exam Narrative: GENERAL: This is a well-nourished, well-developed patient, obese medical dermatopathy in no apparent distress. HEAD: normocephalic, atraumatic. EYES: PERRL. Sclera clear/white. Vision is grossly intact. EARS: External ears normal, auditory canals clear and without drainage, TMs normal without perforation. Hearing grossly intact. NOSE: External nose normal with no obvious nasal discharge, nares without redness, no rhinorrhea. THROAT: Mucous membranes moist, posterior pharynx clear. NECK: Neck supple, non-tender without lymphadenopathy, masses or thyromegaly. CARDIOVAS
--- NOTE | 2020-04-24 10:36 | WPDPN ---
Progress Note: A&P Assessment and Plan (1) CHF (congestive heart failure): Qualifiers: Heart failure chronicity: acute Heart failure type: right-sided Qualified Code(s): I50.811 - Acute right heart failure Code(s): I50.9 - Heart failure, unspecified Status: Acute Assessment and Plan: Echo indicates systolic function is severely reduced estimated 30-35, severely enlarged left ventricle chamber, moderate tricuspid valve regurgitation, mild pulmonary hypertension BNP elevated at 600-->466 Continue Lasix 40 mg twice daily Daily weight, review Continue I's and O's, review (2) Cellulitis: Qualifiers: Laterality: unspecified laterality Site of cellulitis: extremity Site of cellulitis of extremity: lower extremity Qualified Code(s): L03.119 - Cellulitis of unspecified part of limb Code(s): L03.90 - Cellulitis, unspecified Status: Acute Assessment and Plan: Continue Ancef and vancomycin Blood culture pending WBC within normal limit patient afebrile (3) Weakness: Code(s): R53.1 - Weakness Status: Acute Assessment and Plan: PT OT consulted (4) Pulmonary hypertension: Code(s): I27.20 - Pulmonary hypertension, unspecified Status: Acute Assessment and Plan: Echo indicates mild pulmonary hypertension estimated pulmonary arterial systolic pressure at 43 mmHg Continue Norvasc and carvedilol Vital signs as ordered Will adjust medication as Continue telemetry (5) PAD (peripheral artery disease): Code(s): I73.9 - Peripheral vascular disease, unspecified Status: Acute Assessment and Plan: CTA of the aorta indicate moderate grade stenosis at the distalmost bilateral popliteal arteries and with occlusion of the bilateral posterior tibial and left peroneal arteries. Venous Doppler 1 04/21/2020 - for DVT neck Pulses to lower extremities sluggish to the left and weak and weak to the right ALEJANDRA No significant arterial occlusive disease to the lower limbs with normal bilateral ABIs and TBIs. (6) Elevated d-dimer: Code(s): R79.89 - Other specified abnormal findings of blood chemistry Status: Acute Assessment and Plan: CTA negative for PE (7) Elevated lactic acid level: Code(s): R79.89 - Other specified abnormal findings of blood chemistry Status: Acute Assessment and Plan: Lactic acid 2.3 on admission currently within normal limits (8) Sinus tachycardia: Code(s): R00.0 - Tachycardia, unspecified Status: Acute Assessment and Plan: Controlled improved EKG with sinus tach with a heart rate of 108 Carvedilol 3.125 mg started will adjust medication as needed Telemetry telemetry Review of Systems Review of Systems: All systems reviewed & are unremarkable except as noted in HPI and below (12 point system completed) Exam Narrative: Exam Narrative: GENERAL: This is a well-nourished, well-developed patient, obese medical dermatopathy in no apparent distress. HEAD: normocephalic, atraumatic. EYES: PERRL. Sclera clear/white. Vision is grossly intact. EARS: External ears normal, auditory canals clear and without drainage, TMs normal without perforation. Hearing grossly intact. NOSE: External nose normal with no obvious nasal discharge, nares without redness, no rhinorrhea. THROAT: Mucous membranes moist, posterior pharynx clear. NECK: Neck supple, non-tender without lymphadenopathy, masses or thyromegaly. CARDIOVASCULAR: Regular rate and rhythm without murmurs, gallops, or rubs. RESPIRATORY: Clear to auscultation. Breath sounds equal bilaterally. No wheezes, rales, or rhonchi. GASTROINTESTINAL: Abdomen soft, non-tender, nondistended. Bowel sounds are active. No hepato-splenomegaly, or palpable masses. No guarding. SKIN: Open area on dorsum of feet bilaterial the due popped blister , right lower lower extremities edematous and erythema.. Newly formed posteri
[2020-04-24 20:30] LABS: Vancomycin Trough 20.9 ug/mL (10.0-15.0)
--- NOTE | 2020-04-24 21:03 | PC.NURSE ---
Notified by lab that vanco trough was 20.9. Sara contacted. Spoke with Manpreet at [facility]. Dose decreased to 1750 mg with dose to be administered at 2100. Vanco trough to be drawn at 1999 on Tuesday04/25/20
--- NOTE | 2020-04-24 23:58 | PC.NURSE ---
Patient requested snack, given Ham sandwich and ate 100%. Requested something to distract him for the urge of chewing tobacco. [employer] gave patient gum to help.
[2020-04-25] VITALS (8 sets, daily range): BP systolic 116–140; BP diastolic 72–105; PULSE 82–97; RESP 18–22; TEMP 35.8–36.6; O2SAT 95–98
[2020-04-25] MEDS: HYDROcodone/acetaminophen (*CRX) 7.5-325 MG TABLET 1 TAB PO ×2 (01:54→11:32)
[2020-04-25 05:43] LABS: Hematocrit 47.2 % (40.0-54.0); Hemoglobin 14.8 g/dL (14.0-18.0); Mean Corpuscular HGB Conc 31.4 g/dL (32.0-36.0); Mean Corpuscular Hemoglobin 27.3 pg (27.0-31.0); Mean Corpuscular Volume 86.9 fL (78.0-102.0); Mean Platelet Volume 9.9 fl (8.7-11.0); Platelet Count Result 323 K/mm3 (150-420); Red Blood Count 5.43 M/mm3 (4.70-6.10); Red Cell Distribution Width 15.1 % (11.6-14.4); White Blood Count 8.4 K/mm3 (4.8-10.8)
[2020-04-25 06:00] LABS: Alanine Aminotransferase 21 U/L (16-63); Albumin Level 3.4 g/dL (3.4-5.0); Alkaline Phosphatase 62 U/L (46-116); Anion Gap 9 mmol/L (8-16); Aspartate Amino Transferase 21 U/L (15-37); Bilirubin,Total 0.9 mg/dL (0.00-1.00); Blood Urea Nitrogen 16 mg/dL (7-18); Calcium 9.3 mg/dL (8.5-10.1); Carbon Dioxide 25 mmol/L (21-32); Chloride 99 mmol/L (98-108); Estimated CRCL calculation 86 ml/min; Estimated Glomerular Filt Rate > 60; Glucose 134 mg/dL (70-99); Osmolality Calculated 279 mOsm/kg (285-295); Potassium 4.5 mmol/L (3.5-5.1); Sodium 133 mmol/L (136-145); Total Protein 6.8 g/dL (6.4-8.2)
[2020-04-25] MEDS: POTASSIUM CHLORIDE 20 MEQ TABLET 40 MEQ PO ×2 (08:04→17:14)
[2020-04-25 08:48] LABS: Hemoglobin A1C 6.4 % (<5.7)
[2020-04-25] MEDS: FUROSEMIDE INJ 40 MG/4 ML VIAL IV PUSH ×2 (09:12→17:13)
[2020-04-25] MEDS: PARoxetine 20 MG TABLET 40 MG PO (09:18)
[2020-04-25] MEDS: ENOXAPARIN 40 MG/0.4 ML SYRINGE SUB-Q (09:18)
[2020-04-25] MEDS: MAGNESIUM OXIDE 400 MG TABLET PO (09:19)
[2020-04-25] MEDS: hydrALAZINE HCL 25 MG TABLET 100 MG PO (09:19)
[2020-04-25] MEDS: ATORVASTATIN 10 MG TABLET 20 MG PO (09:20)
[2020-04-25] MEDS: carvediloL 3.125 MG TABLET PO ×3 (09:20→21:49)
[2020-04-25] MEDS: allopurinoL 100 MG TABLET 200 MG PO ×2 (09:20→17:14)
[2020-04-25] MEDS: FAMOTIDINE 20 MG TABLET PO ×2 (09:20→17:14)
[2020-04-25] MEDS: amLODIPine BESYLATE 5 MG TABLET 10 MG PO (09:21)
--- NOTE | 2020-04-25 12:05 | P.PN_ITS ---
Progress Note: A&P Assessment and Plan (1) CHF (congestive heart failure): Qualifiers: Heart failure chronicity: acute Heart failure type: right- sided Qualified Code(s): I50.811 - Acute right heart failure <PARAG Story - Last Filed: 04/25/20 12:11> Code(s): I50.9 - Heart failure, unspecified <PARAG Story - Last Filed: 04/25/20 12:11> Status: Acute <PARAG Story - Last Filed: 04/25/20 12:11> Assessment and Plan: * Echo indicates systolic function is severely reduced estimated 30- 35, severely enlarged left ventricle chamber, moderate tricuspid valve regurgitation, mild pulmonary hypertension * BNP elevated at 600-->466 * Continue Lasix 40 mg twice daily * Daily weight, review * Continue I's and O's, review <PARAG Story - Last Filed: 04/25/20 12:11> (2) Cellulitis: Qualifiers: Laterality: unspecified laterality Site of cellulitis: extremity Site of cellulitis of extremity: lower extremity Qualified Code(s): L03.119 - Cellulitis of unspecified part of limb <PARAG Story - Last Filed: 04/25/20 12:11> Code(s): L03.90 - Cellulitis, unspecified <PARAG Story - Last Filed: 04/25/20 12:11> Status: Acute <PARAG Story - Last Filed: 04/25/20 12:11> Assessment and Plan: * Continue Ancef and vancomycin * Blood culture pending preliminary no growth * WBC within normal limit patient afebrile <PARAG Story - Last Ricardo ed: 04/25/20 12:11> (3) Weakness: Code(s): R53.1 - Weakness <PARAG Story - Last Filed: 04/25/20 12:11> Status: Acute <PARAG Story - Last Filed: 04/25/20 12:11> Assessment and Plan: * PT OT consulted <PARAG Story - Last Filed: 04/25/20 12:11> (4) Pulmonary hypertension: Code(s): I27.20 - Pulmonary hypertension, unspecified <VALORIE Story - Last Filed: 04/25/20 12:11> Status: Acute <PARAG Story - Last Filed: 04/25/20 12:11> Assessment and Plan: * Elevated * Echo indicates mild pulmonary hypertension estimated pulmonary arterial systolic pressure at 43 mmHg * Continue hydralazine and carvedilol started lisinopril discontinue Norvasc * Vital signs as ordered * Will adjust medication as * Continue telemetry <PARAG Story - Last Filed: 04/25/20 12:11> (5) PAD (peripheral artery disease): Code(s): I73.9 - Peripheral vascular disease, unspecified <PARAG Story - Last Filed: 04/25/20 12:11> Status: Acute <Irma Rivas PARAG - Last Filed: 04/25/20 12:11> Assessment and Plan: * CTA of the aorta indicate moderate grade stenosis at the distalmost bilateral popliteal arteries and with occlusion of the bilateral posterior tibial and left peroneal arteries. * Venous Doppler 1 04/21/2020 - for DVT neck * Pulses to lower extremities sluggish to the left and weak and weak to the right * ALEJANDRA No significant arterial occlusive disease to the lower limbs with normal bilateral ABIs and TBIs. * Patient will follow up with Dr. Truong on Tuesday at 12:00 <Irma Rivas PARAG - Last Filed: 04/25/20 12:11> (6) Elevated d-dimer: Code(s): R79.89 - Other specified abnormal findings of blood chemistry <Irma Rivas PARAG - Last Filed: 04/25/20 12:11> Status: Acute <Irma Rivas PARAG - Last Filed: 04/25/20 12:11> Assessment and Plan: * CTA negative for PE <Irma JacksonDillon Rob ELIECERAmy
--- NOTE | 2020-04-25 12:05 | WPDPN ---
Progress Note: A&P Assessment and Plan (1) CHF (congestive heart failure): Qualifiers: Heart failure chronicity: acute Heart failure type: right-sided Qualified Code(s): I50.811 - Acute right heart failure <PARAG Story - Last Filed: 04/25/20 12:11> Code(s): I50.9 - Heart failure, unspecified <PARAG Story - Last Filed: 04/25/20 12:11> Status: Acute <PARAG Story - Last Filed: 04/25/20 12:11> Assessment and Plan: Echo indicates systolic function is severely reduced estimated 30-35, severely enlarged left ventricle chamber, moderate tricuspid valve regurgitation, mild pulmonary hypertension BNP elevated at 600-->466 Continue Lasix 40 mg twice daily Daily weight, review Continue I's and O's, review <PARAG Story - Last Filed: 04/25/20 12:11> (2) Cellulitis: Qualifiers: Laterality: unspecified laterality Site of cellulitis: extremity Site of cellulitis of extremity: lower extremity Qualified Code(s): L03.119 - Cellulitis of unspecified part of limb <PARAG Story - Last Filed: 04/25/20 12:11> Code(s): L03.90 - Cellulitis, unspecified <PARAG Story - Last Filed: 04/25/20 12:11> Status: Acute <PARAG Story - Last Filed: 04/25/20 12:11> Assessment and Plan: Continue Ancef and vancomycin Blood culture pending preliminary no growth WBC within normal limit patient afebrile <PARAG Story - Last Filed: 04/25/20 12:11> (3) Weakness: Code(s): R53.1 - Weakness <PARAG Story - Last Filed: 04/25/20 12:11> Status: Acute <PARAG Story - Last Filed: 04/25/20 12:11> Assessment and Plan: PT OT consulted <PARAG Story - Last Filed: 04/25/20 12:11> (4) Pulmonary hypertension: Code(s): I27.20 - Pulmonary hypertension, unspecified <PARAG Story - Last Filed: 04/25/20 12:11> Status: Acute <PARAG Story - Last Filed: 04/25/20 12:11> Assessment and Plan: Elevated Echo indicates mild pulmonary hypertension estimated pulmonary arterial systolic pressure at 43 mmHg Continue hydralazine and carvedilol started lisinopril discontinue Norvasc Vital signs as ordered Will adjust medication as Continue telemetry <PARAG Story - Last Filed: 04/25/20 12:11> (5) PAD (peripheral artery disease): Code(s): I73.9 - Peripheral vascular disease, unspecified <PARAG Story - Last Filed: 04/25/20 12:11> Status: Acute <PARAG Story - Last Filed: 04/25/20 12:11> Assessment and Plan: CTA of the aorta indicate moderate grade stenosis at the distalmost bilateral popliteal arteries and with occlusion of the bilateral posterior tibial and left peroneal arteries. Venous Doppler 1 04/21/2020 - for DVT neck Pulses to lower extremities sluggish to the left and weak and weak to the right ALEJANDRA No significant arterial occlusive disease to the lower limbs with normal bilateral ABIs and TBIs. Patient will follow up with Dr. Truong on Tuesday at 12:00 <Irma Rivas PARAG - Last Filed: 04/25/20 12:11> (6) Elevated d-dimer: Code(s): R79.89 - Other specified abnormal findings of blood chemistry <Irma Rivas ELIECER-Amy - Last Filed: 04/25/20 12:11> Status: Acute <PARAG Story - Last Filed: 04/25/20 12:11> Assessment and Plan: CTA negative for PE <Irma Rivas PARAG - Last Filed: 04/25/20 12:11> (7) Elevated lactic acid level: Code(s): R79.89 - Other specified abnormal findings of blood chemistry <PARAG Story - Last Filed: 04/25/20 12:11> Status: Acute <PARAG Story - Last Filed: 04/25/20 12:11> Assessment and Plan: Lactic acid 2.3 on admission currently w
[2020-04-25] MEDS: lisinopriL 10 MG TABLET PO (12:49)
[2020-04-25] MEDS: hydrALAZINE HCL 25 MG TABLET 50 MG PO ×3 (12:49→21:49)
[2020-04-25] MEDS: carvediloL 6.25 MG TABLET PO (21:48)
[2020-04-26] VITALS (8 sets, daily range): BP systolic 112–144; BP diastolic 73–96; PULSE 64–92; RESP 16–20; TEMP 35.7–36.8; O2SAT 94–98
[2020-04-26 08:13] LABS: Hematocrit 48.6 % (40.0-54.0); Hemoglobin 15.4 g/dL (14.0-18.0); Mean Corpuscular HGB Conc 31.7 g/dL (32.0-36.0); Mean Corpuscular Hemoglobin 28.2 pg (27.0-31.0); Mean Corpuscular Volume 88.8 fL (78.0-102.0); Mean Platelet Volume 11.8 fl (8.7-11.0); Platelet Count Result 152 K/mm3 (150-420); Red Blood Count 5.47 M/mm3 (4.70-6.10); Red Cell Distribution Width 15.1 % (11.6-14.4); White Blood Count 8.1 K/mm3 (4.8-10.8)
[2020-04-26 08:34] LABS: Vancomycin Trough 24.1 ug/mL (10.0-15.0)
[2020-04-26] MEDS: FUROSEMIDE INJ 40 MG/4 ML VIAL IV PUSH ×2 (09:20→16:59)
[2020-04-26] MEDS: PARoxetine 20 MG TABLET 40 MG PO (09:20)
[2020-04-26] MEDS: allopurinoL 100 MG TABLET 200 MG PO ×2 (09:20→17:00)
[2020-04-26] MEDS: FAMOTIDINE 20 MG TABLET PO ×2 (09:21→17:00)
[2020-04-26] MEDS: MAGNESIUM OXIDE 400 MG TABLET PO (09:21)
[2020-04-26] MEDS: POTASSIUM CHLORIDE 20 MEQ TABLET 40 MEQ PO ×2 (09:21→16:59)
[2020-04-26] MEDS: hydrALAZINE HCL 25 MG TABLET 50 MG PO ×4 (09:21→20:19)
[2020-04-26] MEDS: carvediloL 3.125 MG TABLET PO ×2 (09:21→20:19)
[2020-04-26] MEDS: carvediloL 6.25 MG TABLET PO ×2 (09:22→20:19)
[2020-04-26] MEDS: ATORVASTATIN 10 MG TABLET 20 MG PO (09:22)
[2020-04-26] MEDS: lisinopriL 5 MG TABLET PO (09:22)
[2020-04-26] MEDS: ENOXAPARIN 40 MG/0.4 ML SYRINGE SUB-Q (09:23)
[2020-04-26 09:50] LABS: Alanine Aminotransferase 13 U/L (16-63); Albumin Level 3.1 g/dL (3.4-5.0); Alkaline Phosphatase 59 U/L (46-116); Anion Gap 10 mmol/L (8-16); Aspartate Amino Transferase 17 U/L (15-37); Bilirubin,Total 1.1 mg/dL (0.00-1.00); Blood Urea Nitrogen 17 mg/dL (7-18); Carbon Dioxide 23 mmol/L (21-32); Chloride 98 mmol/L (98-108); Estimated CRCL calculation 83 ml/min; Estimated Glomerular Filt Rate > 60; Glucose 203 mg/dL (70-99); Osmolality Calculated 279 mOsm/kg (285-295); Potassium 4.3 mmol/L (3.5-5.1); Sodium 131 mmol/L (136-145); Total Protein 7.5 g/dL (6.4-8.2)
--- NOTE | 2020-04-26 12:07 | P.PN_ITS ---
Progress Note: A&P Assessment and Plan (1) CHF (congestive heart failure): Qualifiers: Heart failure chronicity: acute Heart failure type: right-sided Qualified Code(s): I50.811 - Acute right heart failure Code(s): I50.9 - Heart failure, unspecified Status: Acute Assessment and Plan: * Echo indicates systolic function is severely reduced estimated 30-35, severely enlarged left ventricle chamber, moderate tricuspid valve regurgitation, mild pulmonary hypertension * BNP elevated at 600-->466 * Continue Lasix 40 mg twice daily * Daily weight, review * Continue I's and O's, review (2) Cellulitis: Qualifiers: Laterality: unspecified laterality Site of cellulitis: extremity Site of cellulitis of extremity: lower extremity Qualified Code(s): L03.119 - Cellulitis of unspecified part of limb Code(s): L03.90 - Cellulitis, unspecified Status: Acute Assessment and Plan: * Continue Ancef and vancomycin * Blood culture pending preliminary no growth * WBC within normal limit patient afebrile (3) Weakness: Code(s): R53.1 - Weakness Status: Acute Assessment and Plan: * PT OT consulted (4) Pulmonary hypertension: Code(s): I27.20 - Pulmonary hypertension, unspecified Status: Acute Assessment and Plan: * Improved * Echo indicates mild pulmonary hypertension estimated pulmonary arterial systolic pressure at 43 mmHg * Continue hydralazine and carvedilol started lisinopril discontinue Norvasc * Vital signs as ordered * Will adjust medication as needed (5) PAD (peripheral artery disease): Code(s): I73.9 - Peripheral vascular disease, unspecified Status: Acute Assessment and Plan: * CTA of the aorta indicate moderate grade stenosis at the distalmost bilateral popliteal arteries and with occlusion of the bilateral posterior tibial and left peroneal arteries. * Venous Doppler 1 04/21/2020 - for DVT negative * Pulses to lower extremities sluggish to the left and weak right- weak * ALEJANDRA No significant arterial occlusive disease to the lower limbs with normal bilateral ABIs and TBIs. * Patient will follow up with Dr. Truong on Tuesday at 12:00 (6) Elevated d-dimer: Code(s): R79.89 - Other specified abnormal findings of blood chemistry Status: Acute Assessment and Plan: * CTA negative for PE (7) Elevated lactic acid level: Code(s): R79.89 - Other specified abnormal findings of blood chemistry Status: Acute Assessment and Plan: * Lactic acid 2.3 on admission currently within normal limits (8) Sinus tachycardia: Code(s): R00.0 - Tachycardia, unspecified Status: Acute Assessment and Plan: * Controlled resolved * EKG with sinus tach with a heart rate of 108 on admission * Carvedilol started * will adjust medication as needed Review of Systems Review of Systems: All systems reviewed & are unremarkable except as noted in HPI and below (12 point system completed) Exam Narrative: Exam Narrative: GENERAL: This is a well-nourished, well-developed patient, obese medical dermatopathy in no apparent distress. HEAD: normocephalic, atraumatic. EYES: PERRL. Sclera clear/white. Vision is grossly intact. EARS: External ears normal, auditory canals clear and without drainage, TMs normal without perforation. Hearing grossly intact. NOSE: External nose normal with no obvious nasal discharge, nares without redness, no rhinorrhea. THROAT: Mucous membranes moist, posterior pharynx clear
--- NOTE | 2020-04-26 12:07 | WPDPN ---
Progress Note: A&P Assessment and Plan (1) CHF (congestive heart failure): Qualifiers: Heart failure chronicity: acute Heart failure type: right-sided Qualified Code(s): I50.811 - Acute right heart failure Code(s): I50.9 - Heart failure, unspecified Status: Acute Assessment and Plan: Echo indicates systolic function is severely reduced estimated 30-35, severely enlarged left ventricle chamber, moderate tricuspid valve regurgitation, mild pulmonary hypertension BNP elevated at 600-->466 Continue Lasix 40 mg twice daily Daily weight, review Continue I's and O's, review (2) Cellulitis: Qualifiers: Laterality: unspecified laterality Site of cellulitis: extremity Site of cellulitis of extremity: lower extremity Qualified Code(s): L03.119 - Cellulitis of unspecified part of limb Code(s): L03.90 - Cellulitis, unspecified Status: Acute Assessment and Plan: Continue Ancef and vancomycin Blood culture pending preliminary no growth WBC within normal limit patient afebrile (3) Weakness: Code(s): R53.1 - Weakness Status: Acute Assessment and Plan: PT OT consulted (4) Pulmonary hypertension: Code(s): I27.20 - Pulmonary hypertension, unspecified Status: Acute Assessment and Plan: Improved Echo indicates mild pulmonary hypertension estimated pulmonary arterial systolic pressure at 43 mmHg Continue hydralazine and carvedilol started lisinopril discontinue Norvasc Vital signs as ordered Will adjust medication as needed (5) PAD (peripheral artery disease): Code(s): I73.9 - Peripheral vascular disease, unspecified Status: Acute Assessment and Plan: CTA of the aorta indicate moderate grade stenosis at the distalmost bilateral popliteal arteries and with occlusion of the bilateral posterior tibial and left peroneal arteries. Venous Doppler 1 04/21/2020 - for DVT negative Pulses to lower extremities sluggish to the left and weak right- weak ALEJANDRA No significant arterial occlusive disease to the lower limbs with normal bilateral ABIs and TBIs. Patient will follow up with Dr. Truong on Tuesday at 12:00 (6) Elevated d-dimer: Code(s): R79.89 - Other specified abnormal findings of blood chemistry Status: Acute Assessment and Plan: CTA negative for PE (7) Elevated lactic acid level: Code(s): R79.89 - Other specified abnormal findings of blood chemistry Status: Acute Assessment and Plan: Lactic acid 2.3 on admission currently within normal limits (8) Sinus tachycardia: Code(s): R00.0 - Tachycardia, unspecified Status: Acute Assessment and Plan: Controlled resolved EKG with sinus tach with a heart rate of 108 on admission Carvedilol started will adjust medication as needed Review of Systems Review of Systems: All systems reviewed & are unremarkable except as noted in HPI and below (12 point system completed) Exam Narrative: Exam Narrative: GENERAL: This is a well-nourished, well-developed patient, obese medical dermatopathy in no apparent distress. HEAD: normocephalic, atraumatic. EYES: PERRL. Sclera clear/white. Vision is grossly intact. EARS: External ears normal, auditory canals clear and without drainage, TMs normal without perforation. Hearing grossly intact. NOSE: External nose normal with no obvious nasal discharge, nares without redness, no rhinorrhea. THROAT: Mucous membranes moist, posterior pharynx clear. NECK: Neck supple, non-tender without lymphadenopathy, masses or thyromegaly. CARDIOVASCULAR: Regular rate and rhythm without murmurs, gallops, or rubs. RESPIRATORY: Clear to auscultation. Breath sounds equal bilaterally. No wheezes, rales, or rhonchi. GASTROINTESTINAL: Abdomen soft, non-tender, nondistended. Bowel sounds are active. No hepato-splenomegaly, or palpable masses. No guarding. SKIN: Open area on dorsum of feet bilaterial
[2020-04-26] MEDS: HYDROcodone/acetaminophen (*CRX) 7.5-325 MG TABLET 1 TAB PO (13:56)
[2020-04-26] MEDS: traZODone HCL 50 MG TABLET PO (22:13)
--- NOTE | 2020-04-27 01:53 | PC.NURSE ---
pt sleeping, no evidence of distress noted, call light and belongings within reach
--- NOTE | 2020-04-27 07:24 | P.DS_ITS ---
DS: Admitting Diagnosis Admitting Diagnosis Admitting Diagnosis: Cellulitis, CAD, newly diagnosed congestive heart failure DS: Discharge Diagnosis Discharge Diagnosis (1) CHF (congestive heart failure): Qualifiers: Heart failure chronicity: acute Heart failure type: right-sided Qualified Code(s): I50.811 - Acute right heart failure Code(s): I50.9 - Heart failure, unspecified Status: Acute Assessment and Plan: * Echo indicates systolic function is severely reduced estimated 30-35, severely enlarged left ventricle chamber, moderate tricuspid valve regurgitation, mild pulmonary hypertension * BNP elevated at 600-->466 * Continue Lasix 40 mg daily (2) Cellulitis: Qualifiers: Laterality: unspecified laterality Site of cellulitis: extremity Site of cellulitis of extremity: lower extremity Qualified Code(s): L03.119 - Cellulitis of unspecified part of limb Code(s): L03.90 - Cellulitis, unspecified Status: Acute Assessment and Plan: * Received Ancef and vancomycin. Will discharge with 5 days of clindamycin * Blood culture pending preliminary no growth * WBC within normal limit patient afebrile (3) Weakness: Code(s): R53.1 - Weakness Status: Acute Assessment and Plan: * PT OT consulted (4) Pulmonary hypertension: Code(s): I27.20 - Pulmonary hypertension, unspecified Status: Acute Assessment and Plan: * Improved * Echo indicates mild pulmonary hypertension estimated pulmonary arterial systolic pressure at 43 mmHg * Continue hydralazine and carvedilol started lisinopril discontinue Norvasc * Patient will need to follow-up with his primary care physician (5) PAD (peripheral artery disease): Code(s): I73.9 - Peripheral vascular disease, unspecified Status: Acute Assessment and Plan: * CTA of the aorta indicate moderate grade stenosis at the distalmost bilateral popliteal arteries and with occlusion of the bilateral posterior tibial and left peroneal arteries. * Venous Doppler 1 04/21/2020 - for DVT negative * Pulses to lower extremities sluggish to the left and weak right- weak * ALEJANDRA No significant arterial occlusive disease to the lower limbs with normal bilateral ABIs and TBIs. * Patient will follow up with Dr. Truong on Tuesday at 12:00 (6) Elevated d-dimer: Code(s): R79.89 - Other specified abnormal findings of blood chemistry Status: Acute Assessment and Plan: * CTA negative for PE (7) Elevated lactic acid level: Code(s): R79.89 - Other specified abnormal findings of blood chemistry Status: Acute Assessment and Plan: * Lactic acid 2.3 on admission currently within normal limits (8) Sinus tachycardia: Code(s): R00.0 - Tachycardia, unspecified Status: Acute Assessment and Plan: * Controlled resolved * EKG with sinus tach with a heart rate of 108 on admission * Carvedilol started * will adjust medication as needed DS: Summary Hospital Course Reason for hospitalization: PAD, cellulitis and newly diagnosed congestive heart failure Hospital Course: Otis Diaz is a 59 year old male that presented to his primary care physician with complaints of lower extremity swelling and redness. 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 According to patient he started experiencing edema with erythema and shortness of breath . Patient did visit our ED on 03-11 and the I&D was completed on patient's lower extremity pa
--- NOTE | 2020-04-27 07:24 | PM.DS ---
DS: Admitting Diagnosis Admitting Diagnosis Admitting Diagnosis: Cellulitis, CAD, newly diagnosed congestive heart failure DS: Discharge Diagnosis Discharge Diagnosis (1) CHF (congestive heart failure): Qualifiers: Heart failure chronicity: acute Heart failure type: right-sided Qualified Code(s): I50.811 - Acute right heart failure Code(s): I50.9 - Heart failure, unspecified Status: Acute Assessment and Plan: Echo indicates systolic function is severely reduced estimated 30-35, severely enlarged left ventricle chamber, moderate tricuspid valve regurgitation, mild pulmonary hypertension BNP elevated at 600-->466 Continue Lasix 40 mg daily (2) Cellulitis: Qualifiers: Laterality: unspecified laterality Site of cellulitis: extremity Site of cellulitis of extremity: lower extremity Qualified Code(s): L03.119 - Cellulitis of unspecified part of limb Code(s): L03.90 - Cellulitis, unspecified Status: Acute Assessment and Plan: Received Ancef and vancomycin. Will discharge with 5 days of clindamycin Blood culture pending preliminary no growth WBC within normal limit patient afebrile (3) Weakness: Code(s): R53.1 - Weakness Status: Acute Assessment and Plan: PT OT consulted (4) Pulmonary hypertension: Code(s): I27.20 - Pulmonary hypertension, unspecified Status: Acute Assessment and Plan: Improved Echo indicates mild pulmonary hypertension estimated pulmonary arterial systolic pressure at 43 mmHg Continue hydralazine and carvedilol started lisinopril discontinue Norvasc Patient will need to follow-up with his primary care physician (5) PAD (peripheral artery disease): Code(s): I73.9 - Peripheral vascular disease, unspecified Status: Acute Assessment and Plan: CTA of the aorta indicate moderate grade stenosis at the distalmost bilateral popliteal arteries and with occlusion of the bilateral posterior tibial and left peroneal arteries. Venous Doppler 1 04/21/2020 - for DVT negative Pulses to lower extremities sluggish to the left and weak right- weak ALEJANDRA No significant arterial occlusive disease to the lower limbs with normal bilateral ABIs and TBIs. Patient will follow up with Dr. Truong on Tuesday at 12:00 (6) Elevated d-dimer: Code(s): R79.89 - Other specified abnormal findings of blood chemistry Status: Acute Assessment and Plan: CTA negative for PE (7) Elevated lactic acid level: Code(s): R79.89 - Other specified abnormal findings of blood chemistry Status: Acute Assessment and Plan: Lactic acid 2.3 on admission currently within normal limits (8) Sinus tachycardia: Code(s): R00.0 - Tachycardia, unspecified Status: Acute Assessment and Plan: Controlled resolved EKG with sinus tach with a heart rate of 108 on admission Carvedilol started will adjust medication as needed DS: Summary Hospital Course Reason for hospitalization: PAD, cellulitis and newly diagnosed congestive heart failure Hospital Course: Otis Diaz is a 59 year old male that presented to his primary care physician with complaints of lower extremity swelling and redness. 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 According to patient he started experiencing edema with erythema and shortness of breath . Patient did visit our ED on 03-11 and the I&D was completed on patient's lower extremity patient was given Bactrim at that time. His WBC on admission was 9.2 his D-dimer was 1.56, sodium 138, potassium 3.8, BUN 19, creatinine 1.12 lactic acid 2.3, BUN 600. Patient remained in hospital due to failed outpatient antibiotic therapy and his severe PAD patient will discharge today and has a visit with Dr Reshma Zhang due to occlusion of bilat posterial tibial and left clint
[2020-04-27 08:00] VITALS: BP 124/90; PULSE 86; RESP 18; TEMP 36.4; O2SAT 95
[2020-04-27] MEDS: ENOXAPARIN 40 MG/0.4 ML SYRINGE SUB-Q (09:03)
[2020-04-27] MEDS: FUROSEMIDE INJ 40 MG/4 ML VIAL IV PUSH (09:03)
[2020-04-27] MEDS: ATORVASTATIN 10 MG TABLET 20 MG PO (09:04)
[2020-04-27] MEDS: POTASSIUM CHLORIDE 20 MEQ TABLET 40 MEQ PO (09:08)
[2020-04-27 09:09] VITALS: PULSE 84; PULSE 86
[2020-04-27] MEDS: FAMOTIDINE 20 MG TABLET PO (09:09)
[2020-04-27] MEDS: carvediloL 6.25 MG TABLET PO (09:09)
[2020-04-27] MEDS: carvediloL 3.125 MG TABLET PO (09:09)
[2020-04-27] MEDS: PARoxetine 20 MG TABLET 40 MG PO (09:10)
[2020-04-27] MEDS: hydrALAZINE HCL 25 MG TABLET 50 MG PO (09:10)
[2020-04-27] MEDS: allopurinoL 100 MG TABLET 200 MG PO (09:11)
[2020-04-27] MEDS: lisinopriL 5 MG TABLET PO (09:11)
[2020-04-27] MEDS: MAGNESIUM OXIDE 400 MG TABLET PO (09:11)
[2020-04-27 09:49] LABS: BNP 407 pg/mL (0-100)
--- NOTE | 2020-04-27 10:26 | PC.NURSE ---
Dressing change completed to feet, blisters less red, right foot with yellow drge, no drge from left foot, redressed with dry non stick dressing, tolerated well, assisted to sponge bath and dress, to his own WC and awaiting DC home
--- NOTE | 2020-04-27 11:53 | PC.NURSE ---
Patient discharged to home today. Discharge instructions reviewed with patient. Left floor via wheelchair with all belongings. Patient's sister picked him up via her car.
--- NOTE | 2020-04-29 14:00 | PC.NURSE ---
Pt states he received and understood his discharge instructions. Pt has no other comments.
== END 2020-04-27 11:30 | disposition home or self-care (01) | DRG 602 ==
LOC: CHSED 15:43 → CHS2ND 18:26
PROVIDERS: Nurse Practitioner; Admitting Provider Emergency Medicine; Emergency Provider Emergency Medicine; PCP Internal Medicine; Visit Provider Emergency Medicine
DX: L03.116 Cellulitis of left lower limb; I50.21 Acute systolic (congestive) heart failure; L03.115 Cellulitis of right lower limb; Z87.891 Personal history of nicotine dependence; I36.1 Nonrheumatic tricuspid (valve) insufficiency; I27.20 Pulmonary hypertension, unspecified; I73.9 Peripheral vascular disease, unspecified; R00.0 Tachycardia, unspecified; F10.10 Alcohol abuse, uncomplicated; Z86.69 Personal history of other diseases of the nervous system and sense organs; L03.119 Cellulitis of unspecified part of limb; I50.811 Acute right heart failure
CPT/HCPCS: 36415; 71275; 75635; 80048; 80053; 80202; 81003; 83036; 83605; 83735; 83880; 84484; 85025; 85027; 85380; 85610; 85730; 87040; 93005; 93306; 93922; 93970; 96374; 97110; 97161; 97165; 97530; 97535; 99285; A9270; J0690; J1650; J1940; J3370; Q9967

== ENCOUNTER 2020-06-11 12:20 | Outpatient (CLI) | payer MEDICARE, MEDICAID, SELFPAY ==
--- NOTE | 2020-06-11 12:25 | ECHO_ITS ---
Patient Info Name: Otis Diaz Age: 59 years : 1960 Gender: Male Ht: 69 in Wt: 244 lbs BSA: 2.36 m2 HR: 98 bpm BP: 128 / 94 mmHg Heart Rhythm: Sinus Rhythm Technical Quality: Fair Exam Date: 06/11/2020 12:13 PM Exam Location: [facility] Patient Status: Outpatient Admit Date: 06/11/2020 Staff Ordering Physician: Silvino Trotter DO Inspector Ball Points: Aissatou Lan RDCS Attending Provider: Silvino Trotter DO Referring Physician: Sergo HILL; Exam Type: CA echo dop color flow w con Study Info Indications I50.20 - Unspecified systolic (congestive) heart failure Complete two-dimensional, color flow and Doppler transthoracic echocardiogram is performed with contrast to opacify the left ventricle and to improve the deliniation of the left ventricle endocardial borders. Strain analysis performed. Contrast/Agitated Saline Contrast/Ag. Saline: Definity Amount: 7.00 ml New IV Access: Outer Forearm and Right Site Condition: No extravasation, Site dressing applied and IV removed History/Risk Factors Hypertension: No Dyslipidemia: No Congenital Heart Disease (CHD): No Chronic Lung Disease: No Obesity: Yes Renal Disease: No Coronary Artery Disease (CAD) No Congestive Heart Failure (CHF): Hx CHF Cardiomyopathy/LV Systolic Dysfunction: No Diabetes Mellitus: No COPD: No Tobacco Use: Former Cerebrovascular Disease: No Deep Vein Thrombosis (DVT): None Dialysis: None Frailty Scale (CSHA): 4: Vulnerable Cardiac Arrest: No Summary 1. Left ventricular chamber dimension is severely enlarged. 2. Definity contrast administered improved wall motion interpretation. 3. Left ventricular systolic function is severely reduced, estimated at 15-20%. 4. There is mildly increased left ventricular wall thickness. 5. The left ventricular diastolic function is grade III diastolic dysfunction. 6. E/e' 14 is mildly elevated. 7. Global longitudinal strain is abnormal at -5.0%. 8. Right ventricular chamber dimension is moderately enlarged. 9. Left atrial chamber dimension is moderately enlarged. 10. Right atrial chamber dimension is moderately enlarged. 11. There is moderate mitral valve regurgitation. 12. There is moderate tricuspid valve regurgitation. 13. No pulmonary hypertension, estimated pulmonary arterial systolic pressure is 30 mmHg. Left Ventricle E/e' 14 is mildly elevated. Global longitudinal strain is abnormal at -5.0%. Definity contrast administered improved wall motion interpretation. Left ventricular chamber dimension is severely enlarged. Left ventricular systolic function is severely reduced, estimated at 15-20%. There is mildly increased left ventricular wall thickness. The left ventricular diastolic function is grade III diastolic dysfunction. Right Ventricle Right ventricular systolic function is normal with normal TAPSE 1.9 cm. Right ventricular chamber dimension is moderately enlarged. Left Atria Left atrial chamber dimension is moderately enlarged. Right Atria Right atrial chamber dimension is moderately enlarged. Aortic Valve The aortic valve is trileaflet. There is no aortic valve stenosis. There is no aortic valve regurgitation. Pulmonic Valve There is no pulmonic regurgitation. Mitral Valve There is no mitral valve stenosis. There is moderate mitral valve regurgitation. Tricuspid Valve There is moderate tricus
== END 2020-06-11 12:21 | disposition home or self-care (01) ==
LOC: CHSIMG 12:21
PROVIDERS: PCP Internal Medicine; Visit Provider Internal Medicine Cardiovascular Disease
DX: I50.20 Unspecified systolic (congestive) heart failure (principal)
CPT/HCPCS: C8929

== ENCOUNTER 2020-08-07 10:02 | Outpatient (CLI) | payer MEDICARE, SELFPAY ==
[2020-08-07 10:51] LABS: Anion Gap 16 mmol/L (8-16); Blood Urea Nitrogen 16 mg/dL (7-18); Calcium 9.2 mg/dL (8.5-10.1); Carbon Dioxide 26 mmol/L (21-32); Chloride 98 mmol/L (98-108); Estimated Glomerular Filt Rate 59; Glucose 108 mg/dL (70-99); Magnesium 1.6 mg/dL (1.8-2.4); NT Pro B Type Natriuretic Pept 10330 pg/mL (0-125); Osmolality Calculated 292 mOsm/kg (285-295); Potassium 4.3 mmol/L (3.5-5.1); Sodium 140 mmol/L (136-145)
== END 2020-08-07 10:03 | disposition home or self-care (01) ==
LOC: CHSLAB 10:04
PROVIDERS: PCP Internal Medicine; Visit Provider Specialist
DX: I73.9 Peripheral vascular disease, unspecified (principal); I50.20 Unspecified systolic (congestive) heart failure; I25.5 Ischemic cardiomyopathy; R93.1 Abnormal findings on diagnostic imaging of heart and coronary circulation
CPT/HCPCS: 36415; 80048; 83735; 83880

== ENCOUNTER 2020-11-17 10:57 | Outpatient (RCR) | payer OTHER, SELFPAY ==
--- NOTE | 2020-11-17 12:43 | PTOPEVAL ---
Thank you for referring Otis Diaz to [facility].? The patient is scheduled to be seen for therapy? ____x/week for ___ weeks. Please review, sign, date and return this plan of care PIERO. I agree with and certify that the following plan of care is medically necessary. Referring Physician Date Admitting Provider: Attending Provider: Antione Mcgraw MD Referring Provider: *PT Outpatient Evaluation Start: 11/17/20 11:12 Freq: Status: Active Protocol: Document 11/17/20 11:10 [facility] (Rec: 11/17/20 12:41 [facility] [id number]) Therapy Assessment Status Assessment Status Assessment Status Evaluation Outpatient Past Medical History Neurological History Hx Other Neurological Disorders Yes: PARTIAL PARALYSIS (POST GUILLIANN BARRE) Cardiovascular History Hx Cardiac Arrhythmia Yes Hx Hypercholesterolemia Yes Hx Hypertension Yes Respiratory History Hx Bronchitis Yes Hx Pneumonia Yes Gastrointestinal History Hx Gastroesophageal Reflux Disease Yes Genitourinary History Hx Urinary Tract Infection Yes Musculoskeletal History Hx Gout Yes Hematological History Hx Hematological Disorders No Significant History Endocrine History Hx Endocrine Disorders No Significant History HEENT History Hx HEENT Disorders No Significant History Integumentary History Hx Cellulitis Yes Reproductive History Hx Reproductive Disorders No Significant History Psychosocial History Hx Anxiety Yes Hx Depression Yes Pain History History of Any Previous or Ongoing No Significant History Instance of Pain Anesthesia History Hx Anesthesia Reactions No Significant History Evaluation Information 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 however, Family he reports back in march of this year he was treated for covid and since then has lost a lot of strength in his legs. he reports prior his spell of covid he was walking short distances and in the home with crutches and long distance with the wheelchair. he reports he is using the wheelchair for everything now. he reports he does have bilateral ankle AFO's from his
--- NOTE | 2020-12-23 10:08 | PCPTNOTE ---
patient has not been to therapy in over a month. as of this date, he will be dc'd from skilled PT services and all progress towards goals will be taken from his most recent evaluation/note. DELFINA
== END 2020-11-20 16:03 | disposition home or self-care (01) ==
LOC: CHSPT 10:57
PROVIDERS: PCP Internal Medicine; Visit Provider Internal Medicine
DX: G82.50 Quadriplegia, unspecified (principal)
CPT/HCPCS: 97110; 97161; 97530

== ENCOUNTER 2021-02-05 11:19 | Outpatient (CLI) | payer OTHER, SELFPAY ==
[2021-02-05 11:38] LABS: Add Urine Microscopic? YES; Appearance Urine Clear (Clear); Basophils Absolute Auto 0.04 K/mm3 (0.00-0.10); Basophils Percent Auto 0.4 % (0.0-1.0); Bilirubin Urine Negative (Negative); Blood Urine Negative (Negative); Color Urine Yellow (Yellow); Eosinophils Absolute Auto 0.26 K/mm3 (0.02-0.50); Eosinophils Percent Auto 2.5 % (1.0-6.0); Glucose Urine UA Negative (Negative); Hemoglobin 17.6 g/dL (14.0-18.0); Immature Granulocyte Absolute 0.03 K/mm3 (0.00-0.00); Immature Granulocyte Percent A 0.3 % (0.0-0.0); Ketones Urine Negative (Negative); Leukocyte Esterase Ur Negative (Negative); Lymphocytes Absolute Auto 2.04 K/mm3 (1.10-4.50); Mean Corpuscular HGB Conc 34.5 g/dL (32.0-36.0); Mean Corpuscular Hemoglobin 31.1 pg (27.0-31.0); Mean Corpuscular Volume 90.1 fL (78.0-102.0); Mean Platelet Volume 9.8 fl (8.7-11.0); Monocytes Absolute Auto 0.84 K/mm3 (0.10-0.90); Monocytes Percent Auto 8.2 % (2.0-11.0); Neutrophils Percent Auto 68.6 % (50.0-70.0); Nitrate Urine Negative (Negative); Platelet Count Result 320 K/mm3 (150-420); Protein Urine 1+ (Negative); Red Blood Count 5.66 M/mm3 (4.70-6.10); Red Cell Distribution Width 12.4 % (11.6-14.4); Specific Grav Ur 1.015 (1.010-1.020); Urobilinogen Urine 0.2 mg/dL (0.2-1.0); White Blood Count 10.2 K/mm3 (4.8-10.8); pH Urine 7.5 (5.0-8.0)
[2021-02-05 11:41] LABS: RBC Urine None seen /hpf (0-2); WBC Urine None seen /hpf (0-3)
[2021-02-05 11:42] LABS: Bacteria Urine Trace /hpf; Other Sediment Urine Spermatazoa /hpf
[2021-02-05 11:44] LABS: Hemoglobin A1C 5.2 % (<5.7)
[2021-02-05 12:15] LABS: Alanine Aminotransferase 27 U/L (16-63); Albumin Level 3.6 g/dL (3.4-5.0); Alkaline Phosphatase 97 U/L (46-116); Anion Gap 5 mmol/L (8-16); Aspartate Amino Transferase 26 U/L (15-37); Bilirubin,Total 0.7 mg/dL (0.00-1.00); Blood Urea Nitrogen 12 mg/dL (7-18); Calcium 9.4 mg/dL (8.5-10.1); Carbon Dioxide 34 mmol/L (21-32); Chloride 98 mmol/L (98-108); Cholesterol 124 mg/dL (0-200); Estimated Glomerular Filt Rate > 60; Glucose 102 mg/dL (70-99); HDL Direct 27 mg/dL (40-60); LDL Cholesterol Calculated 65 mg/dL (<130); NT Pro B Type Natriuretic Pept 201 pg/mL (0-125); Osmolality Calculated 283 mOsm/kg (285-295); Potassium 5.7 mmol/L (3.5-5.1); Sodium 137 mmol/L (136-145); Total Protein 7.3 g/dL (6.4-8.2); Triglycerides 158 mg/dL (0-150)
== END 2021-02-05 11:20 | disposition home or self-care (01) ==
LOC: CHSLAB 11:22
PROVIDERS: PCP Internal Medicine; Visit Provider Internal Medicine
DX: E79.0 Hyperuricemia without signs of inflammatory arthritis and tophaceous disease (principal); I50.9 Heart failure, unspecified; I10 Essential (primary) hypertension; E78.2 Mixed hyperlipidemia; R73.01 Impaired fasting glucose; I50.42 Chronic combined systolic (congestive) and diastolic (congestive) heart failure
CPT/HCPCS: 36415; 80053; 80061; 81001; 83036; 83880; 84550; 85025

== ENCOUNTER 2021-05-25 10:08 | Outpatient (CLI) | payer OTHER, SELFPAY ==
[2021-05-25 10:19] LABS: Basophils Absolute Auto 0.03 K/mm3 (0.00-0.10); Basophils Percent Auto 0.4 % (0.0-1.0); Eosinophils Absolute Auto 0.21 K/mm3 (0.02-0.50); Eosinophils Percent Auto 2.5 % (1.0-6.0); Hematocrit 49.4 % (40.0-54.0); Hemoglobin 16.7 g/dL (14.0-18.0); Immature Granulocyte Absolute 0.05 K/mm3 (0.00-0.00); Immature Granulocyte Percent A 0.6 % (0.0-0.0); Lymphocytes Absolute Auto 1.74 K/mm3 (1.10-4.50); Lymphocytes Percent Auto 20.9 % (18.0-42.0); Mean Corpuscular HGB Conc 33.8 g/dL (32.0-36.0); Mean Corpuscular Hemoglobin 31.3 pg (27.0-31.0); Mean Corpuscular Volume 92.7 fL (78.0-102.0); Mean Platelet Volume 10.1 fl (8.7-11.0); Monocytes Absolute Auto 0.77 K/mm3 (0.10-0.90); Monocytes Percent Auto 9.3 % (2.0-11.0); Neutrophils Absolute Auto 5.5 K/mm3 (1.7-7.2); Neutrophils Percent Auto 66.3 % (50.0-70.0); Platelet Count Result 262 K/mm3 (150-420); Red Blood Count 5.33 M/mm3 (4.70-6.10); Red Cell Distribution Width 13.2 % (11.6-14.4); White Blood Count 8.3 K/mm3 (4.8-10.8)
[2021-05-25 10:21] LABS: Add Urine Microscopic? NO; Appearance Urine Clear (Clear); Bilirubin Urine Negative (Negative); Blood Urine Negative (Negative); Color Urine Light Yellow (Yellow); Glucose Urine UA Negative (Negative); Ketones Urine Negative (Negative); Leukocyte Esterase Ur Negative (Negative); Nitrate Urine Negative (Negative); Protein Urine Negative (Negative); Urobilinogen Urine 0.2 mg/dL (0.2-1.0)
[2021-05-25 11:18] LABS: Alanine Aminotransferase 28 U/L (16-63); Albumin Level 3.7 g/dL (3.4-5.0); Alkaline Phosphatase 92 U/L (46-116); Anion Gap 8 mmol/L (8-16); Aspartate Amino Transferase 13 U/L (15-37); Bilirubin,Total 0.6 mg/dL (0.00-1.00); Blood Urea Nitrogen 15 mg/dL (7-18); Calcium 8.7 mg/dL (8.5-10.1); Carbon Dioxide 30 mmol/L (21-32); Chloride 98 mmol/L (98-108); Estimated Glomerular Filt Rate > 60; Glucose 106 mg/dL (70-99); Osmolality Calculated 282 mOsm/kg (285-295); Potassium 4.3 mmol/L (3.5-5.1); Sodium 136 mmol/L (136-145); Total Protein 7.2 g/dL (6.4-8.2)
[2021-05-25 11:38] LABS: NT Pro B Type Natriuretic Pept 169 pg/mL (0-125)
== END 2021-05-25 10:09 | disposition home or self-care (01) ==
LOC: CHSLAB 10:09
PROVIDERS: PCP Internal Medicine; Visit Provider Internal Medicine
DX: E78.2 Mixed hyperlipidemia (principal); I10 Essential (primary) hypertension; I50.42 Chronic combined systolic (congestive) and diastolic (congestive) heart failure
CPT/HCPCS: 36415; 80053; 81003; 83880; 85025

== ENCOUNTER 2021-12-03 10:57 | Outpatient (CLI) | payer OTHER, SELFPAY ==
[2021-12-03 11:14] LABS: Basophils Absolute Auto 0.03 K/mm3 (0.00-0.10); Basophils Percent Auto 0.3 % (0.0-1.0); Eosinophils Absolute Auto 0.25 K/mm3 (0.02-0.50); Eosinophils Percent Auto 2.4 % (1.0-6.0); Hematocrit 51.6 % (40.0-54.0); Hemoglobin 16.9 g/dL (14.0-18.0); Immature Granulocyte Absolute 0.04 K/mm3 (0.00-0.00); Immature Granulocyte Percent A 0.4 % (0.0-0.0); Lymphocytes Absolute Auto 2.15 K/mm3 (1.10-4.50); Mean Corpuscular HGB Conc 32.8 g/dL (32.0-36.0); Mean Corpuscular Hemoglobin 30.5 pg (27.0-31.0); Mean Corpuscular Volume 93.1 fL (78.0-102.0); Mean Platelet Volume 9.7 fl (8.7-11.0); Monocytes Absolute Auto 0.87 K/mm3 (0.10-0.90); Monocytes Percent Auto 8.5 % (2.0-11.0); Neutrophils Absolute Auto 6.9 K/mm3 (1.7-7.2); Neutrophils Percent Auto 67.4 % (50.0-70.0); Platelet Count Result 300 K/mm3 (150-420); Red Blood Count 5.54 M/mm3 (4.70-6.10); Red Cell Distribution Width 12.8 % (11.6-14.4); White Blood Count 10.2 K/mm3 (4.8-10.8)
[2021-12-03 11:15] LABS: Appearance Urine Clear (Clear); Bilirubin Urine Negative (Negative); Blood Urine Negative (Negative); Glucose Urine UA Negative (Negative); Ketones Urine Negative (Negative); Leukocyte Esterase Ur Negative (Negative); Nitrate Urine Negative (Negative); Protein Urine Negative (Negative); Specific Grav Ur 1.015 (1.010-1.020); Urobilinogen Urine 0.2 mg/dL (0.2-1.0)
[2021-12-03 11:16] LABS: Add Urine Microscopic? NO; Color Urine Light Yellow (Yellow)
[2021-12-03 12:34] LABS: Hemoglobin A1C 5.8 % (<5.7)
[2021-12-03 12:38] LABS: Alanine Aminotransferase 23 U/L (16-63); Albumin Level 3.8 g/dL (3.4-5.0); Alkaline Phosphatase 108 U/L (46-116); Anion Gap 9 mmol/L (8-16); Aspartate Amino Transferase 21 U/L (15-37); Bilirubin,Total 0.7 mg/dL (0.00-1.00); Blood Urea Nitrogen 8 mg/dL (7-18); Calcium 9.2 mg/dL (8.5-10.1); Carbon Dioxide 30 mmol/L (21-32); Chloride 101 mmol/L (98-108); Cholesterol 155 mg/dL (0-200); Creatine Kinase 119 U/L (39-308); Estimated Glomerular Filt Rate > 60; Glucose 106 mg/dL (70-99); HDL Direct 34 mg/dL (40-60); LDL Cholesterol Calculated 82 mg/dL (<130); NT Pro B Type Natriuretic Pept 187 pg/mL (0-125); Osmolality Calculated 288 mOsm/kg (285-295); Potassium 4.7 mmol/L (3.5-5.1); Sodium 140 mmol/L (136-145); Total Protein 7.4 g/dL (6.4-8.2); Triglycerides 194 mg/dL (0-150); Uric Acid 3.2 mg/dL (3.5-7.2)
== END 2021-12-03 10:58 | disposition home or self-care (01) ==
LOC: CHSLAB 11:02
PROVIDERS: PCP Internal Medicine; Visit Provider Internal Medicine
DX: E79.0 Hyperuricemia without signs of inflammatory arthritis and tophaceous disease (principal); I10 Essential (primary) hypertension; E78.2 Mixed hyperlipidemia; I50.42 Chronic combined systolic (congestive) and diastolic (congestive) heart failure; R73.01 Impaired fasting glucose
CPT/HCPCS: 36415; 80053; 80061; 81003; 82550; 83036; 83880; 84550; 85025

== ENCOUNTER 2022-03-28 20:13 | Inpatient (IN) | payer OTHER, SELFPAY ==
[2022-03-28] VITALS (15 sets, daily range): BP systolic 120–151; BP diastolic 86–102; PULSE 64–90; RESP 13–31; TEMP 36.6; O2SAT 97–100; BMI 34.2
--- NOTE | ~2022-03-28 | XR_ITS ---
EXAMINATION: XR chest 1V portable DATE: 03/28/2022 20:34 INDICATION: Chest pain. TECHNIQUE: A single frontal view of the chest was obtained on 2 radiographs. COMPARISON: Chest single view 04/11/2020, chest CT 04/23/20 FINDINGS: The chest demonstrates clear lungs without pneumonia, pleural effusion, or pneumothorax. Th e heart size is normal. IMPRESSION: 1. No acute cardiopulmonary disease. Reviewed, dictated and finalized at location A. E EDITOR
--- NOTE | 2022-03-28 20:13 | ECG_ITS ---
Measurements Intervals [place] Rate: 87 P: 58 DE: 244 QRS: -17 QRSD: 115 T: 86 QT: 402 QTc: 484 Interpretive Statements SINUS RHYTHM WITH FIRST DEGREE AV BLOCK LOW QRS VOLTAGE IN PRECORDIAL LEADS ANTEROLATERAL INFARCT, AGE INDETERMINATE INFERIOR ST ELEVATION MYOCARDIAL INFARCT WITH RECIPROCAL ST DEPRESSION IN HIGH LATERAL LEADS- ACUTE ABNORMAL ECG COMPARED TO ECG 04/22/2020 16:23:46 SINUS RHYTHM NOW PRESENT FIRST DEGREE AV BLOCK NOW PRESENT INFERIOR ST ELEVATION ACUTE OK NOW PRESENT Electronically Signed On 03-29-2022 6:41:59 AUTOMATIC GRINDING MACHINE OPERATOR by Silvino Trotter D.O.
--- NOTE | 2022-03-28 20:15 | PC.NURSE ---
Saturnino Lopez-pt sister
[2022-03-28 20:20] LABS: Basophils Absolute Auto 0.1 K/mm3 (0.0-0.1); Basophils Percent Auto 0.4 % (0.2-1.2); Eosinophils Absolute Auto 0.3 K/mm3 (0-0.3); Eosinophils Percent Auto 1.8 % (0-4.4); Hematocrit 52.5 % (42.0-52.0); Immature Granulocyte Absolute 0.07 K/mm3 (0.00-0.031); Immature Granulocyte Percent A 0.5 % (0-0.5); Lymphocytes Absolute Auto 4.67 K/mm3 (0.9-3.2); Lymphocytes Percent Auto 33.3 % (18.3-44.2); Mean Corpuscular HGB Conc 34.3 g/dl (32-36); Mean Corpuscular Volume 90.5 fl (80-100); Monocytes Absolute Auto 1.2 K/mm3 (0.1-0.6); Monocytes Percent Auto 8.4 % (2.6-8.5); Neutrophils Absolute Auto 7.8 K/mm3 (1.3-6.7); Neutrophils Percent Auto 55.6 % (45.5-73.1); Platelet Count Result 319 k/mm3 (150-375); Red Cell Distribution Width 13.1 % (11.5-14.5)
--- NOTE | 2022-03-28 20:20 | ED.CHESTPAIN ---
HPI - Chest Pain General Chief Complaint: Chest Pain Stated Complaint: stemi Source: RN notes reviewed History of Present Illness HPI narrative: Patient presents emergency room from home via EMS for chest pain. Patient states chest pain began approximately 6:30 PM pain is located midsternal chest does not radiate described as a pressure nature associated with shortness of breath and diaphoresis patient was given aspirin 325 and nitro by EMS in route states nitro did mildly improve the pain he denies any previous history of cardiac stents does have a history of heart failure and is followed by cardiology in [facility] he denies any fevers or chills abdominal pain or vomiting but does note some nausea Related Data Home Medications Medication Instructions Recorded Confirmed allopurinol 100 mg tablet 200 mg PO BID 04/11/20 04/22/20 (Zyloprim) atorvastatin 20 mg tablet 20 mg PO DAILY 04/11/20 04/22/20 famotidine 20 mg tablet 20 mg PO BID 04/11/20 04/22/20 hydralazine 100 mg tablet 100 mg PO QID 04/11/20 04/22/20 paroxetine HCl 40 mg tablet 40 mg PO DAILY 04/11/20 04/22/20 tizanidine 4 mg tablet 4 mg PO Q8-10H PRN Pain 04/11/20 04/22/20 trazodone 50 mg tablet 50 mg PO .q8hr PRN 05/15/20 aspirin 81 mg tablet,delayed 81 mg PO DAILY 06/02/20 release (Adult Low Dose Aspirin) bupropion HCl 150 mg tablet,12 hr 150 mg PO BID PRN 06/02/20 sustained-release Allergies Allergy/AdvReac Type Severity Reaction Status Date / Time No Known Allergies Allergy Verified 06/02/20 14:49 Review of Systems Review of Systems: Gen.: Denies fevers or chills ENT: Denies congestion Respiratory: Reports shortness of breath CV: Reports chest pain GI: Denies abdominal pain emesis or diarrhea reports nausea Musculoskeletal: Denies back pain or muscle pain Neuro: Denies numbness, tingling, weakness or focal weakness Skin: Denies rash Except as documented, all other systems reviewed and negative [facility] Past Medical History Medical History Cellulitis of right lower limb Chronic combined systolic and diastolic CHF (congestive heart failure) Dependence on wheelchair Dysthymic disorder GERD (gastroesophageal reflux disease) 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 signs inflammatory arthritis/tophaceous disease Impaired fasting glucose Localized edema Mixed hyperlipidemia Peripheral vascular disease Personal history of colonic polyps Quadriplegia Shortness of breath Family History Family History Father Family history non-contributory Social History Social History Smoking packs per day: 1 Smoking cigarettes per day: 20.0 Smoking status: Former smoker Tobacco type: cigarettes Smokeless tobacco user: chewing tobacco Second hand tobacco smoke exposure: No Smoking end date: 02/28/94 Alcohol intake: former Alcohol use details: quit 1 month ago Substance use: former Gender identity (if verbalized by the patient): Male Sexual Orientation (if Verbalized by the Patient): Straight or Heterosexual Spiritual care concerns: No Exam Narrative: APPEARANCE: Diaphoretic resting in bed EYES: EOMI HEENT: Normocephalic, atraumatic, OMM RESPIRATORY: No respiratory distress Clear to auscultation bilaterally with no rhonchi wheezing or rales. CARDIOVASCULAR: Regular rate and rhythm without murmurs rubs or gallops. ABDOMINAL: Soft, nontender, nondistended, no rebound or guarding MUSCULOSKELETAl: Moves all extremities. No clubbing, cyanosis or edema. NEURO: Awake and alert. Following commands, speech normal, no focal deficits SKIN:: Warm, dry. No rashes lesions or abrasions PSYCHIATRIC: Normal affect/mood, Course Course Emergency Course: STEMI was called from the field
[2022-03-28 20:34] LABS: INR 1.1; Prothrombin Time 13.9 Seconds (11.1-14.7)
[2022-03-28 20:35] LABS: Partial Thromboplastin Time 29.2 SECONDS (22.3-36.8)
[2022-03-28 20:43] LABS: Alanine Aminotransferase 28 U/L (6-50); Albumin Level 4.7 g/dL (3.5-5.1); Alkaline Phosphatase 105 U/L (38-126); Anion Gap 17 mmol/L (8-16); Aspartate Amino Transferase 34 U/L (17-59); Blood Urea Nitrogen 15 mg/dL (9-20); Calcium 9.4 mg/dL (8.4-10.2); Carbon Dioxide 18 mmol/L (22-30); Chloride 98 mmol/L (98-107); Cholesterol 180 mg/dL (0-200); Estimated CRCL calculation 117 ml/min; Estimated Glomerular Filt Rate > 60; Glucose 291 mg/dL (65-110); HDL Direct 31 mg/dL; Potassium 4.1 mmol/L (3.4-5.0); Sodium 133 mmol/L (137-145); Triglycerides 280 mg/dL (<150)
[2022-03-28 20:44] LABS: LDL Cholesterol Direct 95 mg/dL; Troponin I < 0.012 ng/mL (0.000-0.034)
[2022-03-28] MEDS: TICAGRELOR 90 MG TABLET 180 MG PO (20:48)
--- NOTE | 2022-03-28 20:53 | PC.NURSE ---
organic lab worker team at bedside to transfer patient to slab stripper. Patient stable at this time for transfer to slab stripper.
--- NOTE | 2022-03-28 22:26 | ECG_ITS ---
Measurements Intervals [place] Rate: 89 P: 68 [place]: 254 QRS: -38 QRSD: 112 T: 85 QT: 403 QTc: 491 Interpretive Statements SINUS RHYTHM WITH FIRST DEGREE AV BLOCK LOW QRS VOLTAGE IN PRECORDIAL LEADS INFERIOR INFARCT, RECENT ANTEROLATERAL INFARCT, AGE INDETERMINATE ABNORMAL ECG COMPARED TO ECG 03/28/2022 20:17:18 ACUTE INFERIOR INFARCT RESOLVING Electronically Signed On 03-29-2022 6:43:23 LEAD WORKER OF HOUSEKEEPING AND LAUNDRY by Silvino Trotter D.O.
--- NOTE | 2022-03-28 22:27 | SUR.OPER ---
Dr. Wells talked with supervisor gas meter repair Dr. Fitzpatrick and gave MD report.
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
--- NOTE | 2022-03-28 22:44 | SUR.OPER ---
Patient was on room air and O2 sats 98% prior to leaving the labor representative for transport to ICU room 5.
--- NOTE | 2022-03-28 22:59 | ADMGEN ---
This patient, Otis Diaz, was admitted to Intensive Care Unit-5 on 03/28/22 at 2235. Patient/family oriented to hospital policies and general routines including ID bracelet, bed and alarms, visiting hours, pain management, procedures, bathroom and other care routines, personal items, smoking policy, room service/diet, and visiting hours. Information on how to activate the Rapid Response Team has been discussed. Patient/Family are encouraged to report perceived risks to care and to ask questions if they do not understand what they are told or what they should do.
[2022-03-28] MEDS: SODIUM CHLORIDE 0.9% IV 1,000 ML 125 ML IV CONT (23:11)
[2022-03-28 23:37] LABS: Cholesterol 170 mg/dL (0-200); HDL Direct 27 mg/dL; Triglycerides 242 mg/dL (<150)
[2022-03-28 23:48] LABS: LDL Cholesterol Direct 90 mg/dL
[2022-03-29] VITALS (19 sets, daily range): BP systolic 89–118; BP diastolic 59–77; PULSE 66–90; RESP 12–24; TEMP 36.6–36.8; O2SAT 95–100; BMI 34.3
[2022-03-29] MEDS: carvediloL 6.25 MG TABLET PO ×3 (00:24→22:16)
[2022-03-29] MEDS: SACUBITRIL/VALSARTAN 24-26 MG TABLET 1 TAB PO ×3 (00:24→23:25)
[2022-03-29 04:40] LABS: Anion Gap 6 mmol/L (8-16); Blood Urea Nitrogen 11 mg/dL (9-20); Carbon Dioxide 26 mmol/L (22-30); Chloride 103 mmol/L (98-107); Estimated CRCL calculation 141 ml/min; Estimated Glomerular Filt Rate > 60; Glucose 122 mg/dL (65-110); Magnesium 1.7 mg/dL (1.6-2.3); Potassium 4.3 mmol/L (3.4-5.0); Sodium 135 mmol/L (137-145)
--- NOTE | 2022-03-29 05:11 | ECG_ITS ---
Measurements Intervals [place] Rate: 69 P: 49 [place]: 276 QRS: -41 QRSD: 106 T: -50 QT: 481 QTc: 517 Interpretive Statements SINUS RHYTHM WITH FIRST DEGREE AV BLOCK LOW QRS VOLTAGE IN PRECORDIAL LEADS VOLTAGE CRITERIA FOR LVH ANTEROLATERAL INFARCT, AGE INDETERMINATE INFERIOR INFARCT, PROBABLY RECENT ABNORMAL ECG COMPARED TO ECG 03/28/2022 22:43:44 NO SIGNIFICANT CHANGES Electronically Signed On 03-29-2022 12:04:24 PEARL CUTTER by Silvino Trotter D.O.
[2022-03-29 06:03] LABS: Hemoglobin 16.6 g/dL (14.0-18.0); Mean Corpuscular HGB Conc 33.9 g/dl (32-36); Mean Corpuscular Hemoglobin 30.7 pg (26-34); Mean Corpuscular Volume 90.6 fl (80-100); Platelet Count Result 301 k/mm3 (150-375); Red Blood Count 5.41 M/mm3 (4.6-6.20); White Blood Count 13.5 K/mm3 (4.5-10.0)
[2022-03-29] MEDS: ROSUVASTATIN 10 MG TABLET 20 MG PO (09:11)
[2022-03-29] MEDS: ASPIRIN 81 MG CHEWABLE TABLET PO (09:11)
[2022-03-29] MEDS: TICAGRELOR 90 MG TABLET PO ×2 (09:12→22:16)
[2022-03-29] MEDS: SPIRONOLACTONE 25 MG TABLET PO (09:12)
--- NOTE | 2022-03-29 11:28 | WPDCNINT ---
Assessment and Plan Assessment and plan (1) ST elevation (STEMI) myocardial infarction: Code(s): I21.3 - ST elevation (STEMI) myocardial infarction of unspecified site Status: Acute Assessment and Plan: Patient presented 03/28/2022 with chest pain, shortness of breath, nausea, diaphoresis -EKG showed ST-elevation with reciprocal depression insignificant Q-waves in the inferior wall as well as anterior leads. -status post PTCA/PCI, found to have an occluded RCA which was successfully addressed by drug-eluting stent x1. EF was 40% by visual estimation. Additionally: Left main coronary artery is patent, midportion of the LAD with a major diagonal takes off there is a complex 95% stenosis. starting prior to the diagonal and extending past its origin.? The diagonal itself has a 90% stenosis in the proximal segment of it as well.? Distally the LAD is mildly diffusely diseased but without high-grade stenosis. Third marginal branch of the circumflex is a large-sized vessel which has a relatively focal discrete 90% stenosis. -cardiology following the patient -continue ticagrelor, carvedilol, spironolactone, rosuvastatin, Entresto (2) Systolic heart failure: Code(s): I50.20 - Unspecified systolic (congestive) heart failure Status: Acute Assessment and Plan: Continue cardiac meds as above -cardiology to follow the patient (3) CHF (congestive heart failure): Qualifiers: Heart failure chronicity: acute Heart failure type: right-sided Qualified Code(s): I50.811 - Acute right heart failure Code(s): I50.9 - Heart failure, unspecified Status: Acute Assessment and Plan: Will obtain echocardiogram Plan DVT prophylaxis: Post cardiac catheterization patient hematoma at the site of cardiac catheterization here, will need to restart any anticoagulation Stress ulcer prophylaxis: Not indicated Nutrition: Heart healthy diet Code Status: Full code Critical Care Time Spent: 38 minutes Due to a high probability of clinically significant, life threatening deterioration, the patient required my highest level of preparedness to intervene emergently and I personally spent this critical care time directly and personally managing the patient. This critical care time included obtaining a history; examining the patient; pulse oximetry; ordering and review of studies; arranging urgent treatment with development of a management plan; evaluation of patient's response to treatment; frequent reassessment; and discussions with other providers. It was exclusive of separately billable procedures and treating other patients and teaching time. Please see Assessment and Plan section and the rest of the note for further information on patient assessment and treatment This dictation may have been done utilizing a voice recognition system. Attempts have been made to correct errors. However, there may be uncorrected grammatical, spelling, and recognitions errors present. Cathodic Protection Technician Consult Note Consult date: 03/29/22 Reason for consult: Acute inferior wall ST-elevation NE status post PTCA/PCI, occluded RCA which was successfully addressed by drug-eluting stent x1 with excellent anatomical result HPI: Otis Diaz is a 61 year old male past medical history of cellulitis, chronic combined systolic and diastolic heart failure, dysthymic disorder, history of Guillian [place] syndrome, history of alcohol abuse, history of pneumonia, essential hypertension, hyperuricemia, hyperlipidemia, peripheral vascular disease presented the ED via EMS from home with complains of chest pain, according the patient he had midsternal chest pain that did not radiate but was a pressure-like sensation, was associated with shortness of breath, diaphoresis and nausea. He was given aspirin and nitroglycerin by EMS with mild improvement. EKG showed ST-elevation with reciprocal depression insignificant Q-waves in the inferior wall as well as
--- NOTE | 2022-03-29 12:21 | PM.PNCARD ---
Progress Note: A&P Assessment and Plan (1) ST elevation (STEMI) myocardial infarction: Code(s): I21.3 - ST elevation (STEMI) myocardial infarction of unspecified site Status: Acute Assessment and Plan: Inferior STEMI s/p PCI to the RCA with a 3.5 x 22 mm DARRIN. He also has severe complex disease of the LAD with 95% stenosis involving the bifurcation of the major diagonal branch and 90% stenosis in the diagonal branch. 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 He does not appear to be in decompensated heart failure at this time. Continue medical therapy with Entresto, Coreg, spironolactone add Jardiance check 2D echo with Doppler Plan Subjective Date/time seen: 03/29/22 12:21 Cardiology follow up for CAD, STEMI, ICMY He is feeling well this afternoon and does not have any complaints. No chest pain, shortness of breath, or palpitations. Review of Systems Review of Systems: All systems reviewed & are unremarkable except as noted in HPI and below Exam Const: Nutritional Appearance: obese Other: Alert and oriented, comfortable, no distress HENMT: Mouth: Yes moist mucous membranes Eyes: Sclera: sclerae normal Pupils: Equal, round and reactive pupils present Neck: Neck: supple and no JVD Carotids: no bruits Other: carotid pulses are intact Resp: Effort & Inspection: normal respiratory effort Auscultation: clear to auscultation bilaterally Other: Cardio: Rate: regular rate Rhythm: regular rhythm Heart sounds: S1 normal heart sound present, S2 normal heart sound present, no gallops and no murmurs Other: GI: Auscultation: normal bowel sounds Skin: General skin exam: normal color Other: R groin arterial access site free from bleeding, hematoma Neuro: Cranial nerves: Yes Equal, round and reactive pupils present Other: alert and oriented x3 normal cognition Extrem: Other: distal pulses diminished but palpable Objective Data Vital Signs Vital Signs: Vital Signs - 24 hr 03/28/22 20:21 03/28/22 20:22 03/28/22 20:23 Temperature Pulse Rate 85 84 Respiratory Rate 19 Blood Pressure Pulse Oximetry 100 Oxygen Delivery Nasal Cannula Oxygen Flow Rate 2 03/28/22 20:24 03/28/22 20:26 03/28/22 20:30 Temperature Pulse Rate 84 85 83 Respiratory Rate 15 18 18 Blood Pressure 120/90 130/90 Pulse Oximetry Oxygen Delivery Oxygen Flow Rate 03/28/22 20:31 03/28/22 20:39 03/28/22 20:41 Temperature Pulse Rate 82 79 80 Respiratory Rate 14 31 H 13 Blood Pressure 128/86 131/96 H 139/101 H Pulse Oximetry Oxygen Delivery Oxygen Flow Rate 03/28/22 20:46 03/28/22 20:47 03/28/22 20:51 Temperature Pulse Rate 86 82 81 Respiratory Rate 30 H 16 17 Blood Pressure 139/102 H 151/101 H Pulse Oximetry Oxygen Delivery Oxygen Flow Rate 03/28/22 23:11 03/28/22 22:41 03/29/22 00:24 Temperature 36.6 C Pulse Rate 90 64 90 Respiratory Rate 18 20 Blood Pressure 124/87 121/86 Pulse Oximetry 98 97 Oxygen Delivery Oxygen Flow Rate 03/29/22 00:11 03/29/22 00:46 03/29/22 00:00 Temperature Pulse Rate 87 86 Respiratory Rate 17 13 Blood Pressure 112/76 118/77 Pulse Oximetry 96 100 Oxygen Delivery Room Air Oxygen Flow Rate 03/28/22 23:35 03/29/22 04:00 03/29/22 02:00 Temperature Pulse Rate 80 Respiratory Rate 16 Blood Pressure 99/73 L Pulse Oximetry 97 Oxygen Delivery Room Air Room Air Oxygen Flow Rate 03/29/22 04:11 03/29/22 00:00 03/29/22 02:00 Temperature Pulse Rate 74 86 80 Res
[2022-03-30] VITALS (8 sets, daily range): BP systolic 96–115; BP diastolic 73–74; PULSE 68–78; RESP 14–17; TEMP 36.6–37; O2SAT 96–97
--- NOTE | 2022-03-30 | ECHO_ITS ---
Patient Info Name: Otis Diaz Age: 61 years : 1960 Gender: Male Ht: 71 in Wt: 246 lbs BSA: 2.40 m2 HR: 72 bpm BP: 96 / 73 mmHg Heart Rhythm: Sinus Rhythm Technical Quality: Fair Exam Date: 03/30/2022 8:11 AM Exam Location: [facility] Patient Status: Inpatient Admit Date: 03/28/2022 Staff Ordering Physician: [facility] Director: Ally Mora RDCS Attending Provider: Lloyd Wells MD Referring Physician: Madison EMMANUEL; Exam Type: CA echo dop color flow w con Study Info Indications - STEMI Complete two-dimensional, color flow and Doppler transthoracic echocardiogram is performed with agitated saline. Contrast/Agitated Saline Contrast/Ag. Saline: Definity Amount: 3.00 ml Administered By: Ally Mora RDCS Existing IV Access: Yes IV Access Condition: patent with no signs of infiltration History/Risk Factors Hypertension: No Dyslipidemia: No Congenital Heart Disease (CHD): No Chronic Lung Disease: No Obesity: Yes Renal Disease: No Coronary Artery Disease (CAD) No Congestive Heart Failure (CHF): Hx CHF Cardiomyopathy/LV Systolic Dysfunction: No Diabetes Mellitus: No COPD: No Tobacco Use: Former Cerebrovascular Disease: No Deep Vein Thrombosis (DVT): None Dialysis: None Frailty Scale (CSHA): 4: Vulnerable Cardiac Arrest: No Summary 1. Left ventricular chamber dimension is normal. 2. Left ventricular systolic function is at lower limits of normal, estimated at 50-55%. There is basal septal hypertrophy. 3. The left ventricular diastolic function is grade I diastolic dysfunction. 4. Right ventricular systolic function is normal. 5. There is moderate aortic valve sclerosis. 6. The mitral valve annulus is mildly calcified. 7. The aortic root size at the sinus of Valsalva is dilated. 8. No significant valvular disease. Left Ventricle Left ventricular chamber dimension is normal. Left ventricular systolic function is at lower limits of normal, estimated at 50-55%. There is basal septal hypertrophy. The left ventricular diastolic function is grade I diastolic dysfunction. Right Ventricle Right ventricular chamber dimension is normal. Right ventricular systolic function is normal. Left Atria Left atrial chamber dimension is normal. Right Atria Right atrial chamber dimension is normal. Atrial Septum Intact interatrial septum visualized by color flow imaging. Aortic Valve The aortic valve is probable trileaflet. There is moderate aortic valve sclerosis. There is no aortic valve stenosis. There is no aortic valve regurgitation. Pulmonic Valve The pulmonic valve is not well visualized. Mitral Valve The mitral valve has normal leaflets. There is no mitral valve stenosis. There is trace mitral valve regurgitation. The mitral valve annulus is mildly calcified. Tricuspid Valve There is no significant tricuspid valve stenosis. There is trace tricuspid valve regurgitation. Pericardium/Pleural There is trivial pericardial effusion. Aorta The aortic root size at the sinus of Valsalva is dilated. Left Ventricular Outflow Tract Name Value Normal LVOT 2D -------
--- NOTE | 2022-03-30 02:47 | PC.NURSE ---
Cardiopulmonary Rehab Services flyer was given to patient in admission folder.
[2022-03-30] MEDS: PERFLUTREN LIPID MICROSPHERES 1.5 ML VIAL DILUTED TO 10 ML TOTAL VOLUME IV PUSH (09:07)
--- NOTE | 2022-03-30 09:07 | IVDEFINITY ---
Prior to administration of IV Definity the patient was educated on the risks and benefits of the imaging enhancing agent including potential adverse side effects. The patient verbalized understanding. Allergies were verified. No exclusion criteria were identified and at least one of the following inclusion criteria were met: 1) physician request, 2) patient technically difficult to image (per the [place] [employer]ocardi[employer] guidelines of two or more segments not discernable within the apical view), or 3) questionable left ventricular function. ?
--- NOTE | 2022-03-30 09:47 | PM.PNCARD ---
Progress Note: A&P Assessment and Plan (1) ST elevation (STEMI) myocardial infarction: Code(s): I21.3 - ST elevation (STEMI) myocardial infarction of unspecified site Status: Acute Assessment and Plan: Inferior STEMI s/p PCI to the RCA with a 3.5 x 22 mm DARRIN. He also has severe complex disease of the LAD with 95% stenosis involving the bifurcation of the major diagonal branch and 90% stenosis in the diagonal branch. 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 He does not appear to be in decompensated heart failure at this time. Continue medical therapy with Entresto, Coreg, spironolactone add Jardiance check 2D echo with Doppler Plan Subjective Date/time seen: 03/30/22 09:47 Review of Systems Review of Systems: All systems reviewed & are unremarkable except as noted in HPI and below ROS unobtainable: Yes unobtainable due to medical condition Exam Const: General: obese Nutritional Appearance: obese Other: Alert and oriented, comfortable, no distress HENMT: Mouth: Yes moist mucous membranes Eyes: Sclera: sclerae normal Pupils: Equal, round and reactive pupils present Neck: Neck: supple and no JVD Carotids: no bruits Other: carotid pulses are intact Resp: Effort & Inspection: normal respiratory effort Auscultation: clear to auscultation bilaterally Other: Cardio: Rate: regular rate Rhythm: regular rhythm Heart sounds: S1 normal heart sound present, S2 normal heart sound present, no gallops and no murmurs Other: GI: Auscultation: normal bowel sounds Skin: General skin exam: normal color Other: R groin arterial access site free from bleeding, hematoma Neuro: Cranial nerves: Yes Equal, round and reactive pupils present Other: alert and oriented x3 normal cognition Extrem: Other: distal pulses diminished but palpable Objective Data Vital Signs Vital Signs: Vital Signs - 24 hr 03/29/22 10:00 03/29/22 10:00 03/29/22 12:00 Temperature Pulse Rate 75 79 74 Respiratory Rate 24 H Blood Pressure 109/69 Pulse Oximetry Oxygen Delivery 03/29/22 12:00 03/29/22 12:00 03/29/22 14:00 Temperature Pulse Rate 79 74 70 Respiratory Rate 21 H 21 H 20 Blood Pressure 102/71 93/71 L Pulse Oximetry 97 98 Oxygen Delivery Room Air 03/29/22 14:00 03/29/22 16:00 03/29/22 16:00 Temperature Pulse Rate 69 66 69 Respiratory Rate 20 Blood Pressure Pulse Oximetry 97 Oxygen Delivery Room Air 03/29/22 16:00 03/29/22 16:00 03/29/22 18:00 Temperature 36.8 C Pulse Rate 67 70 70 Respiratory Rate 20 16 Blood Pressure 108/67 108/67 Pulse Oximetry 97 98 Oxygen Delivery 03/29/22 20:00 03/29/22 20:00 03/29/22 20:00 Temperature Pulse Rate 72 72 72 Respiratory Rate 16 16 Blood Pressure 89/59 L Pulse Oximetry 97 97 Oxygen Delivery Room Air 03/29/22 22:00 03/29/22 22:00 03/29/22 22:16 Temperature Pulse Rate 72 71 71 Respiratory Rate Blood Pressure 102/63 Pulse Oximetry Oxygen Delivery 03/30/22 00:00 03/30/22 00:00 03/30/22 00:00 Temperature 37.0 C Pulse Rate 70 70 70 Respiratory Rate 14 14 Blood Pressure 103/73 Pulse Oximetry 97 97 Oxygen Delivery Room Air 03/30/22 02:00 03/30/22 04:00 03/30/22 04:00 Temperature Pulse Rate 71 68 68 Respiratory Rate 14 Blood Pressure Pulse Oximetry 97 Oxygen Delivery Room Air 03/30/22 04:00 03/30/22 06:00 03/30/22 08:00 Temperature 36.9 C Pulse Rate 68 72 72 Respiratory Rate 14 Blood Pressure 96/73 L Pulse Oximetry 97 Oxygen Deliv
[2022-03-30] MEDS: ASPIRIN 81 MG CHEWABLE TABLET PO (10:13)
[2022-03-30] MEDS: carvediloL 6.25 MG TABLET PO (10:13)
[2022-03-30] MEDS: SACUBITRIL/VALSARTAN 24-26 MG TABLET 1 TAB PO (10:14)
[2022-03-30] MEDS: SPIRONOLACTONE 25 MG TABLET PO (10:14)
[2022-03-30] MEDS: EMPAGLIFLOZIN 10 MG TABLET PO (10:14)
[2022-03-30] MEDS: TICAGRELOR 90 MG TABLET PO (10:14)
[2022-03-30] MEDS: ROSUVASTATIN 10 MG TABLET 20 MG PO (10:14)
--- NOTE | 2022-03-30 14:57 | PM.DS ---
DS: Admitting Diagnosis Discharge Date 03/30/2022 Admitting Diagnosis chest pain DS: Discharge Diagnosis Discharge Diagnosis (1) ST elevation (STEMI) myocardial infarction: Code(s): I21.3 - ST elevation (STEMI) myocardial infarction of unspecified site Status: Acute Assessment and Plan: Inferior STEMI s/p PCI to the RCA with a 3.5 x 22 mm DARRIN. He also has severe complex disease of the LAD with 95% stenosis involving the bifurcation of the major diagonal branch and 90% stenosis in the diagonal branch. 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 He does not appear to be in decompensated heart failure at this time. Continue medical therapy with Entresto, Coreg, spironolactone add Jardiance echo showed normal LVSF with EF 50-55%. He does have grade I diastolic dysfunction. No significant valvular disease. DS: Summary Hospital Course Hospital Course: This is a 61-year-old man who reports a history of coronary disease with LV systolic dysfunction receives his cardiovascular care elsewhere. He was brought to this hospital by ambulance this evening with chest pain that began a couple of hours ago and inferior ST-elevation with reciprocal depression. His electrocardiogram also shows chronic inferior Q-waves as well as chronic anterior Q-waves. He was found to have an acute inferior wall myocardial infarction resulting from abrupt thrombotic occlusion of the right coronary artery which is an unusual early bifurcating vessel the trunk that was occluded is giving rise to the large posterolateral vessels. This was successfully addressed using the 3.5 x 22 mm drug-eluting stent described above with an excellent anatomical result. He was placed on appropriate medical therapy and had no significant post-procedural complications. He recovered as expected and is appropriate for discharge home today. Time Spent with Patient Time attestation: Total time spent providing and/or coordinating discharge services: Exam Const: General: comfortable, no acute distress, alert and awake Orientation/consciousness: patient oriented x3 Other: obese HENMT: Head: normal to inspection Eyes: General: appearance normal, both eyes and all related structures Pupils: Equal, round and reactive pupils present Neck: Neck: normal visual inspection, supple and no JVD Carotids: normal carotid upstroke Resp: Effort & Inspection: normal respiratory effort Auscultation: clear to auscultation bilaterally Cardio: Rate: regular rate Rhythm: regular rhythm Heart sounds: S1 normal heart sound present, S2 normal heart sound present and no murmurs GI: Auscultation: normal bowel sounds Skin: General skin exam: normal color Other: R groin arterial access site free from bleeding, hematoma, bruit. Neuro: General: patient oriented x3 Cranial nerves: Yes Equal, round and reactive pupils present Extrem: General: normal to inspection Psych: Appearance: grossly normal Mental Status: mental status grossly normal Discharge Plan Discharge Attending physician on discharge: Luis Enrique Conrad Consulting providers: Silvino Trotter ; Kajal Gomez ; Luis Enrique Conrad ; Leno Rice V. Discharging Clinician: Clarisa Wallace Patient Disposition: Home, Self-Care Activity: may shower Diet: heart healthy Wound Care Instructions: other - see discharge instructions Discharge Instructions: [facility]
== END 2022-03-30 16:20 | disposition home or self-care (01) | DRG 247 ==
LOC: ANHED 20:53 → ANHICU 21:02
PROVIDERS: Internal Medicine; Admitting Provider Specialist; Emergency Provider Emergency Medicine; PCP Internal Medicine; Visit Provider Nurse Practitioner
PROC: 4A023N7 Measurement of Cardiac Sampling and Pressure, Left Heart, Percutaneous Approach (ICD-10-PCS; CPT 93452; principal; 2022-03-28 20:20)
PROC: 027034Z Dilation of Coronary Artery, One Artery with Drug-eluting Intraluminal Device, Percutaneous Approach (ICD-10-PCS; 2022-03-28 20:20)
DX: I21.3 ST elevation (STEMI) myocardial infarction of unspecified site (principal); I50.22 Chronic systolic (congestive) heart failure; I11.0 Hypertensive heart disease with heart failure; G65.0 Sequelae of Guillain-Barre syndrome; I73.9 Peripheral vascular disease, unspecified; K21.9 Gastro-esophageal reflux disease without esophagitis; E79.0 Hyperuricemia without signs of inflammatory arthritis and tophaceous disease; E78.2 Mixed hyperlipidemia; F34.1 Dysthymic disorder; F10.11 Alcohol abuse, in remission; Z86.010 Personal history of colon polyps; Z99.3 Dependence on wheelchair
CPT/HCPCS: 36415; 71045; 80048; 80053; 80061; 83735; 84484; 85025; 85027; 85610; 85730; 86850; 86900; 86901; 93005; 93458; 99291; A9270; C1725; C1769; C1874; C1887; C1894; C8929; C9606; J0461; J0583; J1644; J2405; J7030; J7040; Q9957

== ENCOUNTER 2022-04-12 11:31 | Outpatient (CLI) | payer OTHER, SELFPAY ==
[2022-04-12 12:25] LABS: Anion Gap 9 mmol/L (8-16); Blood Urea Nitrogen 14 mg/dL (7-18); Calcium 9.2 mg/dL (8.5-10.1); Carbon Dioxide 30 mmol/L (21-32); Chloride 95 mmol/L (98-108); Estimated Glomerular Filt Rate > 60; Glucose 115 mg/dL (70-99); Osmolality Calculated 279 mOsm/kg (285-295); Potassium 4.4 mmol/L (3.5-5.1); Sodium 134 mmol/L (136-145)
== END 2022-04-12 11:32 | disposition home or self-care (01) ==
LOC: CHSLAB 11:33
PROVIDERS: PCP Internal Medicine; Visit Provider Internal Medicine
DX: I10 Essential (primary) hypertension (principal)
CPT/HCPCS: 36415; 80048

== ENCOUNTER 2022-04-27 11:41 | Outpatient (CLI) | payer OTHER, SELFPAY ==
[2022-04-27 12:20] LABS: Anion Gap 9 mmol/L (8-16); Blood Urea Nitrogen 12 mg/dL (7-18); Calcium 9.4 mg/dL (8.5-10.1); Carbon Dioxide 32 mmol/L (21-32); Chloride 97 mmol/L (98-108); Estimated Glomerular Filt Rate > 60; Glucose 106 mg/dL (70-99); Osmolality Calculated 285 mOsm/kg (285-295); Potassium 4.5 mmol/L (3.5-5.1); Sodium 138 mmol/L (136-145)
== END 2022-04-27 11:42 | disposition home or self-care (01) ==
LOC: CHSLAB 11:42
PROVIDERS: PCP Internal Medicine; Visit Provider Internal Medicine
DX: I10 Essential (primary) hypertension (principal)
CPT/HCPCS: 36415; 80048

== ENCOUNTER 2022-05-21 10:47 | Emergency (ER) | payer OTHER, SELFPAY ==
[2022-05-21] VITALS (9 sets, daily range): BP systolic 136–151; BP diastolic 92–103; PULSE 74–80; RESP 14–17; TEMP 36.4; O2SAT 96–100
--- NOTE | ~2022-05-21 | XR_ITS ---
EXAMINATION: XR chest 1V portable INDICATION: Hypertension TECHNIQUE: Portable AP chest at 1128 hours COMPARISON: 03/28/2022 FINDINGS: The lungs are free of acute opacities. No pleural effusion or pneumothorax. The cardiomedia stinal silhouette is normal. IMPRESSION: 1. No acute cardiopulmonary abnormality. Reviewed, dictated and finalized at location B.
--- NOTE | 2022-05-21 10:53 | ECG_ITS ---
Measurements Intervals [place] Rate: 76 P: 56 [place]: 254 QRS: -44 QRSD: 107 T: 92 QT: 428 QTc: 482 Interpretive Statements SINUS RHYTHM WITH FIRST DEGREE AV BLOCK INCOMPLETE RIGHT BUNDLE BRANCH BLOCK LOW QRS VOLTAGE IN PRECORDIAL LEADS INFERIOR INFARCT, AGE INDETERMINATE ANTEROLATERAL INFARCT, AGE INDETERMINATE BASELINE WANDER- I, II, V6 ABNORMAL ECG COMPARED TO ECG 03/29/2022 10:46:10 NO SIGNIFICANT CHANGES Electronically Signed On 05-21-2022 12:45:50 CDT by Silvino Trotter D.O.
--- NOTE | 2022-05-21 10:59 | ED.GENADULT ---
HPI - General Adult General Chief complaint: Recheck/Abnormal Lab/Rx Stated complaint: High blood pressure Time Seen by Provider: 05/21/22 10:58 Source: patient Mode of arrival: ambulatory History of Present Illness HPI narrative: 61-year-old male who chews tobacco with a history of hypertension, dyslipidemia, impaired fasting glucose, alcoholism, gout, peripheral vascular disease, Again but his syndrome complicated by quadriplegia,CAD/STEMI /inferior VT status post RCA stent on 03/28/2022 along with 95% complex occlusion of the LAD and 90% occlusion of OM 3 with systolic and diastolic dysfunction was at cardiac rehab when he was noted to have -- elevated blood pressure of 151/111 for which he was transferred to the ER. On arrival the patient was noted to have a blood pressure of 144/102. the patient had exercised 25 minutes following which he was noted to have elevated blood pressure. The patient denies any chest pain or shortness of breath. No nausea / vomiting. No lightheadedness. The patient takes Norvasc 2.5 mg, Coreg 3.125 daily, Entresto 97/103, Lasix 40 mg daily, hydralazine 100 mg q.i.d., lisinopril 5 mg. Onset (ago): minute(s) ( Started 30 minutes ago) Relieving factors: none Exacerbating factors: none Associated symptoms: denies other symptoms Treatments prior to arrival: none Related Data Home Medications Medication Instructions Recorded Confirmed allopurinol 100 mg tablet 200 mg PO BID 04/11/20 05/21/22 (Zyloprim) famotidine 20 mg tablet 20 mg PO BID 04/11/20 05/21/22 paroxetine HCl 40 mg tablet 40 mg PO DAILY 04/11/20 05/21/22 tizanidine 4 mg tablet 4 mg PO Q8-10H PRN Pain 04/11/20 05/21/22 trazodone 50 mg tablet 50 mg PO HS 05/15/20 05/21/22 aspirin 81 mg tablet,delayed 81 mg PO DAILY 06/02/20 05/21/22 release (Adult Low Dose Aspirin) carvedilol 6.25 mg tablet (Coreg) 3.125 mg PO DAILY 03/28/22 05/21/22 sacubitril 97 mg-valsartan 103 mg 1 tablet Q12H 03/28/22 05/21/22 tablet (Entresto) amlodipine 2.5 mg tablet 2.5 mg PO DAILY 05/21/22 05/21/22 atorvastatin 20 mg tablet 20 mg PO DAILY 05/21/22 05/21/22 furosemide 40 mg tablet 40 mg PO DAILY 05/21/22 05/21/22 hydralazine 100 mg tablet 100 mg PO QID 05/21/22 05/21/22 lisinopril 5 mg tablet 5 mg PO DAILY 05/21/22 05/21/22 Allergies Allergy/AdvReac Type Severity Reaction Status Date / Time No Known Allergies Allergy Verified 05/21/22 11:00 Review of Systems Review of Systems: All systems reviewed & are unremarkable except as noted in HPI and below Constitutional: Constitutional: Reports as per HPI and Reports no additional constitutional complaints Eyes: Eyes: Reports as per HPI and Reports no additional eye complaints ENT: Reports system reviewed and no additional complaints, except as documented and Reports as per HPI Cardiovascular: Cardiovascular: Reports as per HPI and Reports no additional cardiovascular complaints Comments: noted to have elevated blood pressure of 151/111. Gastrointestinal: Gastrointestinal: Reports as per HPI and Reports no additional gastrointestinal complaints Genitourinary: Genitourinary: Reports no additional male genitourinary complaints and Reports as per HPI Musculoskeletal: Musculoskeletal: Reports no additional musculoskeletal complaints and Reports as per HPI Integumentary/Breasts: Skin/Breast: Reports system reviewed and no additional complaints, except as docu and Reports as per HPI Neurologic: Reports system reviewed and no additional complaints, except as documented and Reports as per HPI Comments: Quadriplegia. has leg braces. Uses a wheelchair. Psychiatric: Psychiatric: Reports no additional psychiatric complaints and Reports as per HPI Endocrine: Endocrine: Reports no additional endocrine complaints and Reports as per HPI Hematologic/Lymphatic: Hematologic/Lymphatic: Reports no additional hematologic/lymphatic complaints and Reports as per HPI Allergic/Immunologic: Allergic/Immunologic: R
[2022-05-21 11:39] LABS: Basophils Absolute Auto 0.04 K/mm3 (0.00-0.10); Basophils Percent Auto 0.4 % (0.0-1.0); Eosinophils Absolute Auto 0.23 K/mm3 (0.02-0.50); Eosinophils Percent Auto 2.4 % (1.0-6.0); Hematocrit 51.1 % (40.0-54.0); Hemoglobin 17.3 g/dL (14.0-18.0); Immature Granulocyte Absolute 0.03 K/mm3 (0.00-0.00); Immature Granulocyte Percent A 0.3 % (0.0-0.0); Lymphocytes Absolute Auto 1.81 K/mm3 (1.10-4.50); Lymphocytes Percent Auto 18.6 % (18.0-42.0); Mean Corpuscular HGB Conc 33.9 g/dL (32.0-36.0); Mean Corpuscular Hemoglobin 30.9 pg (27.0-31.0); Mean Corpuscular Volume 91.4 fL (78.0-102.0); Monocytes Absolute Auto 0.95 K/mm3 (0.10-0.90); Monocytes Percent Auto 9.7 % (2.0-11.0); Neutrophils Absolute Auto 6.7 K/mm3 (1.7-7.2); Neutrophils Percent Auto 68.6 % (50.0-70.0); Platelet Count Result 285 K/mm3 (150-420); Red Blood Count 5.59 M/mm3 (4.70-6.10); Red Cell Distribution Width 12.8 % (11.6-14.4); White Blood Count 9.8 K/mm3 (4.8-10.8)
[2022-05-21 11:54] LABS: INR 1.1; Partial Thromboplastin Time 30.8 SEC (23.90-30.70); Prothrombin Time 11.6 Seconds (9.50-12.10)
[2022-05-21 12:06] LABS: Alanine Aminotransferase 22 U/L (16-63); Albumin Level 3.7 g/dL (3.4-5.0); Alkaline Phosphatase 87 U/L (46-116); Anion Gap 11 mmol/L (8-16); Aspartate Amino Transferase 21 U/L (15-37); Bilirubin,Total 0.6 mg/dL (0.00-1.00); Blood Urea Nitrogen 12 mg/dL (7-18); Calcium 9.3 mg/dL (8.5-10.1); Carbon Dioxide 31 mmol/L (21-32); Chloride 99 mmol/L (98-108); Estimated CRCL calculation 79 ml/min; Estimated Glomerular Filt Rate > 60; Glucose 125 mg/dL (70-99); Lipase 32 U/L (16-77); NT Pro B Type Natriuretic Pept 508 pg/mL (0-125); Osmolality Calculated 292 mOsm/kg (285-295); Potassium 4.1 mmol/L (3.5-5.1); Sodium 141 mmol/L (136-145); Troponin I 17.4 ng/L (0.00-60.4); Uric Acid 2.1 mg/dL (3.5-7.2)
== END 2022-05-21 12:30 | disposition home or self-care (01) ==
PROVIDERS: Emergency Provider Internal Medicine Critical Care Medicine; PCP Internal Medicine
DX: I11.0 Hypertensive heart disease with heart failure (principal); I50.9 Heart failure, unspecified; Z79.82 Long term (current) use of aspirin
CPT/HCPCS: 36415; 71045; 80053; 83690; 83880; 84484; 84550; 85025; 85610; 85730; 93005; 99284

== ENCOUNTER 2022-05-25 10:57 | Outpatient (CLI) | payer OTHER, SELFPAY ==
[2022-05-25 11:47] LABS: Anion Gap 14 mmol/L (8-16); Blood Urea Nitrogen 14 mg/dL (7-18); Calcium 9.6 mg/dL (8.5-10.1); Carbon Dioxide 25 mmol/L (21-32); Chloride 101 mmol/L (98-108); Estimated Glomerular Filt Rate > 60; Glucose 131 mg/dL (70-99); Osmolality Calculated 292 mOsm/kg (285-295); Potassium 5.1 mmol/L (3.5-5.1); Sodium 140 mmol/L (136-145)
== END 2022-05-25 10:58 | disposition home or self-care (01) ==
LOC: CHSLAB 10:58
PROVIDERS: PCP Internal Medicine; Visit Provider Internal Medicine
DX: I10 Essential (primary) hypertension (principal)
CPT/HCPCS: 36415; 80048

== ENCOUNTER 2022-08-04 09:30 | Outpatient (RCR) | payer OTHER, SELFPAY | END 2022-08-09 13:00 | disposition home or self-care (01) | PROVIDERS: PCP Internal Medicine; Visit Provider Internal Medicine | DX: Z95.5 Presence of coronary angioplasty implant and graft (principal) | CPT/HCPCS: 93798 ==

== ENCOUNTER 2023-01-04 10:20 | Outpatient (CLI) | payer OTHER, SELFPAY ==
[2023-01-04 11:35] LABS: Alanine Aminotransferase 25 U/L (16-63); Albumin Level 3.7 g/dL (3.4-5.0); Alkaline Phosphatase 89 U/L (46-116); Anion Gap 11 mmol/L (8-16); Aspartate Amino Transferase 24 U/L (15-37); Bilirubin,Total 1.5 mg/dL (0.00-1.00); Blood Urea Nitrogen 15 mg/dL (7-18); Calcium 9.2 mg/dL (8.5-10.1); Carbon Dioxide 28 mmol/L (21-32); Chloride 96 mmol/L (98-108); Cholesterol 163 mg/dL (0-200); Creatine Kinase 127 U/L (39-308); Estimated Glomerular Filt Rate > 60; Glucose 114 mg/dL (70-99); HDL Direct 37 mg/dL (40-60); LDL Cholesterol Calculated 59 mg/dL (<130); Osmolality Calculated 281 mOsm/kg (285-295); Potassium 4.7 mmol/L (3.5-5.1); Prostate Specific Antigen 1.1 ng/mL (< OR = 4.0); Sodium 135 mmol/L (136-145); Total Protein 7.3 g/dL (6.4-8.2); Triglycerides 337 mg/dL (0-150)
== END 2023-01-04 10:21 | disposition home or self-care (01) ==
PROVIDERS: PCP Internal Medicine; Visit Provider Internal Medicine
DX: E78.2 Mixed hyperlipidemia (principal); Z12.5 Encounter for screening for malignant neoplasm of prostate
CPT/HCPCS: 36415; 80053; 80061; 82550; 84153; G0103

== ENCOUNTER 2023-06-26 22:10 | Emergency (ER) | payer OTHER, SELFPAY ==
[2023-06-26] VITALS (13 sets, daily range): BP systolic 135–155; BP diastolic 93–104; PULSE 84; RESP 20; TEMP 36.1; O2SAT 94–100
--- NOTE | ~2023-06-26 | CT_ITS ---
Non-contrast CT scan of the Abdomen and Pelvis Clinical indication: Abdominal pain Technique: 2.5 mm axial scans were obtained through the abdomen and pelvis without intravenous or or al contrast. Dose reduction technique was used on this scan by utilizing automated exposure control a nd iterative reconstruction technique. The dose-length product (DLP) was 1126.99 mGy-cm. Findings: Images through the lung bases reveal no abnormalities. There is no evidence of renal or ureteral calculi. The kidneys and the ureters are nondilated. The liver, spleen, pancreas, and adrenals appear normal. Multiple large gallstones are present. There are atherosclerotic calcifications of the aorta. There is no evidence of bowel obstruction. Images through the pelvis were performed. There is no evidence of ascites or lymphadenopathy. Urinary bladder unremarkable. No pelvic mass seen. L1 compression fractures present, age-indeterminate. Impression: Cholelithiasis. No evidence for acute cholecystitis. L1 compression fracture, age-indeterminate. Consider MR to evaluate for acuity, if indicated. Reviewed, dictated and finalized at [facility]. Impression: Cholelithiasis. No evidence for acute cholecystitis. L1 compression fracture, age-indeterminate. Consider MR to evaluate for acuity, if indicated.
--- NOTE | 2023-06-26 22:12 | ECG_ITS ---
SEE SCANNED COPY FOR CONFIRMED REPORT. MTDD
--- NOTE | 2023-06-26 22:14 | ED.NAVMDI ---
HPI - Nausea/Vomiting/Diarrhea General Chief complaint: Nausea/Vomiting/Diarrhea Stated complaint: n/v/d Time Seen by Provider: 06/26/23 22:12 Source: patient Mode of arrival: ambulatory Limitations: no limitations History of Present Illness HPI Narrative: patient is a 62-year-old male with nausea vomiting and diarrhea for the last few hours. He said he ate some black beans that appeared outdated but he proceeded to eat them anyway. He started to have symptoms within an hour. Patient had a heart stent placed last year. He has no chest pain. No shortness of breath. He also has a alcoholic and drinks in binges which he is off of binge at this time. He had binge of alcohol last week. MD elicited complaint: nausea, vomiting, diarrhea and abdominal pain Pertinent past history: alcohol abuse Onset (ago): hour(s) (3) Description of vomiting: food contents and watery Description of diarrhea: watery Associated nausea: Yes Associated abdominal pain: Yes Location of pain: diffuse Radiation: diffuse Pain consistency: intermittent and now resolved Severity: mild Pain scale (0-10): 3 Quality: aching Exacerbating factors: none Relieving factors: none Context: possible food poisoning Associated symptoms: nausea/vomiting Related Data Home Medications Medication Instructions Recorded Confirmed allopurinol 100 mg tablet 200 mg PO BID 04/11/20 06/26/23 (Zyloprim) paroxetine HCl 40 mg tablet 40 mg PO DAILY 04/11/20 06/26/23 tizanidine 4 mg tablet 4 mg PO Q8-10H PRN Pain 04/11/20 06/26/23 trazodone 50 mg tablet 50 mg PO HS 05/15/20 06/26/23 aspirin 81 mg tablet,delayed 81 mg PO DAILY 06/02/20 06/26/23 release (Adult Low Dose Aspirin) carvedilol 6.25 mg tablet (Coreg) 3.125 mg PO BID 03/28/22 06/26/23 sacubitril 97 mg-valsartan 103 mg 1 tablet PO BID 03/28/22 06/26/23 tablet (Entresto) amlodipine 2.5 mg tablet 2.5 mg PO DAILY 05/21/22 06/26/23 atorvastatin 20 mg tablet 20 mg PO DAILY 05/21/22 06/26/23 furosemide 40 mg tablet 40 mg PO DAILY 05/21/22 06/26/23 lisinopril 5 mg tablet 5 mg PO DAILY 05/21/22 06/26/23 empagliflozin 10 mg tablet 10 mg PO DAILY 06/26/23 06/26/23 (Jardiance) magnesium oxide 400 mg PO DAILY 06/26/23 06/26/23 ticagrelor 90 mg tablet (Brilinta) 90 mg PO BID 06/26/23 06/26/23 Allergies Allergy/AdvReac Type Severity Reaction Status Date / Time No Known Allergies Allergy Verified 06/26/23 22:29 Review of Systems Review of Systems: All systems reviewed & are unremarkable except as noted in HPI and below Constitutional: Constitutional: Reports no additional constitutional complaints Eyes: Eyes: Reports no additional eye complaints ENT: Reports system reviewed and no additional complaints, except as documented Cardiovascular: Cardiovascular: Reports no additional cardiovascular complaints Respiratory: Respiratory: Reports no additional respiratory complaints Gastrointestinal: Gastrointestinal: Reports no additional gastrointestinal complaints Genitourinary: Genitourinary: Reports no additional male genitourinary complaints Musculoskeletal: Musculoskeletal: Reports no additional musculoskeletal complaints Integumentary/Breasts: Skin/Breast: Reports system reviewed and no additional complaints, except as docu Neurologic: Reports system reviewed and no additional complaints, except as documented Psychiatric: Psychiatric: Reports no additional psychiatric complaints Endocrine: Endocrine: Reports no additional endocrine complaints Hematologic/Lymphatic: Hematologic/Lymphatic: Reports no additional hematologic/lymphatic complaints Allergic/Immunologic: Allergic/Immunologic: Reports no additional allergic/immunologic complaints [facility] Past Medical History Medical History Cellulitis of right lower limb Chronic combined systolic and diastolic CHF (congestive heart failure) Dependence on wheelchair Dysthymic disorder GERD (gastroesophageal refl
[2023-06-26 22:30] LABS: Basophils Absolute Auto 0.04 K/mm3 (0.00-0.10); Basophils Percent Auto 0.5 % (0.0-1.0); Eosinophils Absolute Auto 0.13 K/mm3 (0.02-0.50); Eosinophils Percent Auto 1.6 % (1.0-6.0); Hematocrit 51.1 % (40.0-54.0); Immature Granulocyte Absolute 0.02 K/mm3 (0.00-0.00); Immature Granulocyte Percent A 0.2 % (0.0-0.0); Lymphocytes Absolute Auto 2.02 K/mm3 (1.10-4.50); Lymphocytes Percent Auto 25.2 % (18.0-42.0); Mean Corpuscular HGB Conc 33.3 g/dL (32-36); Mean Corpuscular Hemoglobin 30.4 pg (27.0-31.0); Mean Corpuscular Volume 91.3 fL (78.0-102.0); Mean Platelet Volume 9.7 fl (8.7-11.0); Monocytes Absolute Auto 0.96 K/mm3 (0.10-0.90); Neutrophils Absolute Auto 4.85 K/mm3 (1.70-7.20); Neutrophils Percent Auto 60.5 % (50.0-70.0); Platelet Count Result 275 K/mm3 (150-420); Red Cell Distribution Width 14.2 % (11.6-14.4)
[2023-06-26] MEDS: SODIUM CHLORIDE 0.9% IV 1,000 ML 999 ML IV CONT (22:45)
[2023-06-26 22:49] LABS: Alanine Aminotransferase 26 U/L (16-63); Albumin Level 3.3 g/dL (3.4-5.0); Alkaline Phosphatase 77 U/L (46-116); Anion Gap 12 mmol/L (4-12); Aspartate Amino Transferase 23 U/L (15-37); Bilirubin,Total 0.4 mg/dL (0.00-1.00); Blood Urea Nitrogen 18 mg/dL (7-18); Calcium 8.8 mg/dL (8.5-10.1); Carbon Dioxide 26 mmol/L (21-32); Chloride 102 mmol/L (98-108); Estimated CRCL calculation 72 ml/min; Estimated Glomerular Filt Rate > 60; Glucose 139 mg/dL (70-99); Lactic Acid Reflex 1.8 mmol/L (0.4-2.0); Lipase 93 U/L (16-77); Osmolality Calculated 293 mOsm/kg (285-295); Potassium 4.2 mmol/L (3.5-5.1); Sodium 140 mmol/L (136-145); Total Protein 7.3 g/dL (6.4-8.2); Troponin I 10.9 ng/L (0.00-60.4)
== END 2023-06-27 00:12 | disposition home or self-care (01) ==
PROVIDERS: Emergency Provider Emergency Medicine; PCP Internal Medicine
DX: K52.9 Noninfective gastroenteritis and colitis, unspecified (principal); K21.9 Gastro-esophageal reflux disease without esophagitis; Z99.3 Dependence on wheelchair; E78.5 Hyperlipidemia, unspecified; G82.50 Quadriplegia, unspecified; I50.42 Chronic combined systolic (congestive) and diastolic (congestive) heart failure; I11.0 Hypertensive heart disease with heart failure; Z87.891 Personal history of nicotine dependence
CPT/HCPCS: 36415; 74176; 80053; 83605; 83690; 84484; 85025; 93005; 96360; 99284; J7030

== ENCOUNTER 2023-06-29 09:14 | Outpatient (CLI) | payer OTHER, SELFPAY ==
[2023-06-29 09:32] LABS: Basophils Absolute Auto 0.02 K/mm3 (0.00-0.10); Basophils Percent Auto 0.3 % (0.0-1.0); Eosinophils Absolute Auto 0.16 K/mm3 (0.02-0.50); Eosinophils Percent Auto 2.5 % (1.0-6.0); Hematocrit 53.9 % (40.0-54.0); Hemoglobin 17.5 g/dL (14.0-18.0); Immature Granulocyte Absolute 0.02 K/mm3 (0.00-0.00); Immature Granulocyte Percent A 0.3 % (0.0-0.0); Lymphocytes Absolute Auto 1.65 K/mm3 (1.10-4.50); Lymphocytes Percent Auto 25.3 % (18.0-42.0); Mean Corpuscular HGB Conc 32.5 g/dL (32-36); Mean Corpuscular Hemoglobin 30.3 pg (27.0-31.0); Mean Corpuscular Volume 93.3 fL (78.0-102.0); Mean Platelet Volume 9.2 fl (8.7-11.0); Monocytes Absolute Auto 0.74 K/mm3 (0.10-0.90); Monocytes Percent Auto 11.4 % (2.0-11.0); Neutrophils Absolute Auto 3.92 K/mm3 (1.70-7.20); Neutrophils Percent Auto 60.2 % (50.0-70.0); Platelet Count Result 320 K/mm3 (150-420); Red Blood Count 5.78 M/mm3 (4.70-6.10); Red Cell Distribution Width 14.4 % (11.6-14.4); White Blood Count 6.5 K/mm3 (4.8-10.8)
[2023-06-29 09:33] LABS: Appearance Urine Clear (Clear); Bilirubin Urine Negative (Negative); Blood Urine Negative (Negative); Color Urine Light Yellow (Yellow); Glucose Urine UA 3+ (Negative); Ketones Urine Negative (Negative); Leukocyte Esterase Ur Negative (Negative); Nitrate Urine Negative (Negative); Protein Urine Negative (Negative); Urobilinogen Urine 0.2 mg/dL (0.2-1.0); pH Urine 6.5 (5.0-8.0)
[2023-06-29 09:41] LABS: Hemoglobin A1C 5.4 % (<5.7)
[2023-06-29 09:48] LABS: Add Urine Microscopic? NO; Bacteria Urine None seen /hpf; RBC Urine None seen /hpf (0-2); WBC Urine None seen /hpf (0-3)
[2023-06-29 09:52] LABS: Creatinine Urine 28.37 mg/dL (40-278); MALB Creatinine Ratio 45.8 mg/g (0-30); Microalbumin Urine Random < 13.0 mg/L
[2023-06-29 10:37] LABS: Alanine Aminotransferase 27 U/L (16-63); Albumin Level 3.6 g/dL (3.4-5.0); Alkaline Phosphatase 78 U/L (46-116); Anion Gap 7 mmol/L (4-12); Aspartate Amino Transferase 22 U/L (15-37); Bilirubin,Total 0.6 mg/dL (0.00-1.00); Blood Urea Nitrogen 12 mg/dL (7-18); Calcium 8.9 mg/dL (8.5-10.1); Carbon Dioxide 34 mmol/L (21-32); Chloride 99 mmol/L (98-108); Cholesterol 218 mg/dL (0-200); Creatine Kinase 53 U/L (39-308); Estimated Glomerular Filt Rate > 60; Ferritin 334 ng/mL (26-388); Free T3 2.18 pg/mL (2.18-3.98); Free T4 Free Thyroxine 1.02 ng/dL (0.76-1.46); Glucose 101 mg/dL (70-99); HDL Direct 34 mg/dL (40-60); Iron 81 ug/dL (65-175); LDL Cholesterol Calculated 143 mg/dL (<130); Osmolality Calculated 289 mOsm/kg (285-295); Potassium 4.5 mmol/L (3.5-5.1); Sodium 140 mmol/L (136-145); Total Protein 7.4 g/dL (6.4-8.2); Triglycerides 207 mg/dL (0-150)
== END 2023-06-29 09:15 | disposition home or self-care (01) ==
LOC: CHSLAB 09:16
PROVIDERS: PCP Internal Medicine; Visit Provider Internal Medicine
DX: I10 Essential (primary) hypertension (principal); E79.0 Hyperuricemia without signs of inflammatory arthritis and tophaceous disease; E78.2 Mixed hyperlipidemia; R73.01 Impaired fasting glucose; D75.1 Secondary polycythemia
CPT/HCPCS: 36415; 80053; 80061; 81003; 82043; 82550; 82728; 83036; 83540; 84439; 84443; 84481; 85025

== ENCOUNTER 2023-08-02 12:33 | Emergency (ER) | payer OTHER, SELFPAY ==
[2023-08-02] VITALS (24 sets, daily range): BP systolic 145–191; BP diastolic 102–118; PULSE 80–98; RESP 13–24; TEMP 36.2; O2SAT 97–100
--- NOTE | ~2023-08-02 | CT_ITS ---
Clinical Indication: Shortness of breath CT Scan of the Chest with Contrast: Technique: Contiguous sections were acquired throughout the chest after intravenous administration of 100 cc of Omnipaque 350. Dose reduction technique was used on this scan by utilizing automated expos ure control and iterative reconstruction technique. The dose-length product (DLP) was 880.93 mGy-cm. COMPARISON: 04/23/2020 Findings: There is no evidence of any significant mediastinal, hilar or axillary lymphadenopathy. There is no f illing defect in the pulmonary arterial tree to suggest pulmonary embolus. There is no evidence of ao rtic dissection or aneurysm. There is no evidence of pleural or pericardial effusion. The lungs are clear. No pulmonary nodules or infiltrates are noted. Images through the upper abdomen reveal diffuse hepatic steatosis, and multiple gallstones. Possible partially imaged compression fracture of L1. Impression: No evidence of pulmonary embolus, aortic dissection, or aortic aneurysm. Clear lungs. Suspected partially imaged L1 compression fracture. Diffuse hepatic steatosis and multiple gallstones. Reviewed, dictated and finalized at location . Impression: No evidence of pulmonary embolus, aortic dissection, or aortic aneurysm. Clear lungs. Suspected partially imaged L1 compression fracture. Diffuse hepatic steatosis and multiple gallstones.
--- NOTE | 2023-08-02 12:45 | ECG_ITS ---
[address] Test Date: 2023-08-02 Pat Name: Otis Diaz Department: Room: Gender: M General Counsel: Amy : 1960 Requested By: Armin Sorenson Order Number: [id number] Reading MD: Luis Enrique Conrad M.D. Measurements Intervals [place] Rate: 95 P: 71 [place]: 196 QRS: -42 QRSD: 84 T: 110 QT: 380 QTc: 479 Interpretive Statements SINUS RHYTHM LOW QRS VOLTAGE IN PRECORDIAL LEADS [QRS DEFLECTION < 1.0 mV IN CHEST LEADS] ANTEROLATERAL MYOCARDIAL INFARCTION , OF INDETERMINATE AGE [40+ ms Q WAVE IN I/aVL/V3-V6] OLD INFERIOR INFARCTION No previous ECG available for comparison Electronically Signed On 08-02-2023 14:13:17 CDT by Luis Enrique Conrad M.D.
--- NOTE | 2023-08-02 12:48 | ED.SOB ---
HPI - SOB/Dyspnea General Chief Complaint: Shortness of Breath/Dyspnea Stated Complaint: shortness of breath Time Seen by Provider: 08/02/23 12:45 Source: patient Mode of arrival: EMS Limitations: no limitations History of Present Illness HPI Narrative: 63 year old male presents to the Emergency Department via EMS. Patient complains of shortness of breath. Onset today. States he fell yesterday. Has large bruise /ecchymosis to left upper chest. Denies any pain. MD elicited complaint: shortness of breath Onset (ago): hour(s) (today) Timing: constant Exacerbating factors: nothing Relieving factors: nothing Associated symptoms: denies other symptoms Treatment prior to arrival: none Related Data Home oxygen amount: none Home Medications Medication Instructions Recorded Confirmed allopurinol 100 mg tablet 200 mg PO BID 04/11/20 08/02/23 (Zyloprim) paroxetine HCl 40 mg tablet 40 mg PO DAILY 04/11/20 08/02/23 aspirin 81 mg tablet,delayed 81 mg PO DAILY 06/02/20 08/02/23 release (Adult Low Dose Aspirin) carvedilol 6.25 mg tablet (Coreg) 3.125 mg PO BID 03/28/22 08/02/23 sacubitril 97 mg-valsartan 103 mg 1 tablet PO BID 03/28/22 08/02/23 tablet (Entresto) atorvastatin 20 mg tablet 20 mg PO DAILY 05/21/22 08/02/23 furosemide 40 mg tablet 40 mg PO DAILY 05/21/22 06/26/23 lisinopril 5 mg tablet 5 mg PO DAILY 05/21/22 08/02/23 empagliflozin 10 mg tablet 10 mg PO DAILY 06/26/23 08/02/23 (Jardiance) magnesium oxide 400 mg PO DAILY 06/26/23 08/02/23 ticagrelor 90 mg tablet (Brilinta) 90 mg PO BID 06/26/23 08/02/23 Allergies Allergy/AdvReac Type Severity Reaction Status Date / Time No Known Allergies Allergy Verified 06/26/23 22:29 Review of Systems Review of Systems: All systems reviewed & are unremarkable except as noted in HPI and below Constitutional: Constitutional: Reports as per HPI, Denies chills and Denies fever(s) Eyes: Eyes: Reports as per HPI ENT: Reports system reviewed and no additional complaints, except as documented Cardiovascular: Cardiovascular: Reports as per HPI and Denies chest pain Respiratory: Respiratory: Reports as per HPI and Reports dyspnea Gastrointestinal: Gastrointestinal: Reports as per HPI, Denies abdominal pain, Denies diarrhea, Denies nausea and Denies vomiting Genitourinary: Genitourinary: Reports no additional male genitourinary complaints and Denies dysuria Musculoskeletal: Musculoskeletal: Reports no additional musculoskeletal complaints and Denies joint swelling Integumentary/Breasts: Skin/Breast: Reports system reviewed and no additional complaints, except as docu Neurologic: Reports system reviewed and no additional complaints, except as documented Psychiatric: Psychiatric: Reports no additional psychiatric complaints Endocrine: Endocrine: Reports no additional endocrine complaints Hematologic/Lymphatic: Hematologic/Lymphatic: Reports no additional hematologic/lymphatic complaints Allergic/Immunologic: Allergic/Immunologic: Reports no additional allergic/immunologic complaints PMFSH Past Medical History Medical History Cellulitis of right lower limb Chronic combined systolic and diastolic CHF (congestive heart failure) Dependence on wheelchair Dysthymic disorder GERD (gastroesophageal reflux disease) 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 Other Unknown family medical history Social History Social History Smoking packs per day: 1 Smoking cigar
[2023-08-02 13:09] LABS: Basophils Absolute Auto 0.05 K/mm3 (0.00-0.10); Basophils Percent Auto 0.5 % (0.0-1.0); Hematocrit 53.2 % (40.0-54.0); Hemoglobin 17.5 g/dL (14.0-18.0); Immature Granulocyte Absolute 0.03 K/mm3 (0.00-0.00); Immature Granulocyte Percent A 0.3 % (0.0-0.0); Lymphocytes Absolute Auto 1.27 K/mm3 (1.10-4.50); Lymphocytes Percent Auto 13.7 % (18.0-42.0); Mean Corpuscular HGB Conc 32.9 g/dL (32-36); Mean Corpuscular Hemoglobin 30.5 pg (27.0-31.0); Mean Corpuscular Volume 92.8 fL (78.0-102.0); Mean Platelet Volume 9.3 fl (8.7-11.0); Monocytes Percent Auto 6.5 % (2.0-11.0); Neutrophils Absolute Auto 7.32 K/mm3 (1.70-7.20); Platelet Count Result 319 K/mm3 (150-420); Red Blood Count 5.73 M/mm3 (4.70-6.10); Red Cell Distribution Width 13.6 % (11.6-14.4); White Blood Count 9.3 K/mm3 (4.8-10.8)
[2023-08-02 13:29] LABS: D Dimer 0.81 mg/L (0.19-0.50)
[2023-08-02 13:34] LABS: Alanine Aminotransferase 37 U/L (16-63); Albumin Level 3.5 g/dL (3.4-5.0); Alkaline Phosphatase 105 U/L (46-116); Anion Gap 21 mmol/L (4-12); Aspartate Amino Transferase 41 U/L (15-37); Bilirubin,Total 2.4 mg/dL (0.00-1.00); Blood Urea Nitrogen 16 mg/dL (7-18); Calcium 8.9 mg/dL (8.5-10.1); Carbon Dioxide 16 mmol/L (21-32); Chloride 92 mmol/L (98-108); Estimated CRCL calculation 89 ml/min; Estimated Glomerular Filt Rate > 60; Glucose 109 mg/dL (70-99); Osmolality Calculated 270 mOsm/kg (285-295); Potassium 5.3 mmol/L (3.5-5.1); Sodium 129 mmol/L (136-145); Total Protein 7.7 g/dL (6.4-8.2); Troponin I 26.4 ng/L (0.00-60.4)
[2023-08-02 13:34] LABS: Ethanol 3 mg/dL (0-6); NT Pro B Type Natriuretic Pept 1126 pg/mL (0-125)
--- NOTE | 2023-08-02 13:43 | PC.NURSE ---
pt to xray dept via stretcher for cta chest.
[2023-08-02] MEDS: lisinopriL 5 MG TABLET PO (14:27)
[2023-08-02 15:27] LABS: Troponin I 24.2 ng/L (0.00-60.4)
== END 2023-08-02 15:52 | disposition home or self-care (01) ==
PROVIDERS: Emergency Provider Emergency Medicine; PCP Internal Medicine
DX: R06.02 Shortness of breath (principal); I11.0 Hypertensive heart disease with heart failure; I50.42 Chronic combined systolic (congestive) and diastolic (congestive) heart failure; E78.2 Mixed hyperlipidemia; I73.9 Peripheral vascular disease, unspecified; K21.9 Gastro-esophageal reflux disease without esophagitis; G82.50 Quadriplegia, unspecified; F17.220 Nicotine dependence, chewing tobacco, uncomplicated; Z79.82 Long term (current) use of aspirin; Z79.84 Long term (current) use of oral hypoglycemic drugs; Z79.01 Long term (current) use of anticoagulants; Z79.899 Other long term (current) drug therapy
CPT/HCPCS: 36415; 71275; 80053; 80307; 83880; 84484; 85025; 85380; 93005; 99284; A9270; Q9967

== ENCOUNTER 2023-10-06 14:42 | Emergency (ER) | payer OTHER, SELFPAY ==
[2023-10-06] VITALS (35 sets, daily range): BP systolic 146–199; BP diastolic 105–125; PULSE 100–112; RESP 13–23; TEMP 36.4–36.9; O2SAT 95–100
--- NOTE | ~2023-10-06 | XR_ITS ---
EXAMINATION: XR chest 1V portable DATE: 10/06/2023 14:59 INDICATION: Chest pain. TECHNIQUE: A single frontal view of the chest was obtained. COMPARISON: Chest single view 05/21/2022, chest CT 08/02/2023 FINDINGS: There is no pneumonia, pleural effusion, or pneumothorax. The heart size is normal. IMPRESSION: 1. No acute cardiopulmonary disease. Reviewed, dictated and finalized at location A.
--- NOTE | 2023-10-06 14:45 | ECG_ITS ---
Test Date: 2023-10-06 14:49:38 Measurements Intervals [place] Rate: 99 P: 79 AR: 229 QRS: -46 QRSD: 100 T: 92 QT: 376 QTc: 483 Interpretive Statements SINUS RHYTHM WITH FIRST DEGREE AV BLOCK LOW QRS VOLTAGE IN PRECORDIAL LEADS [QRS DEFLECTION < 1.0 mV IN CHEST LEADS] PREVIOUS ANTERIOR VT PREVIOUS INFERIOR VT ABNORMAL ELECTROCARDIOGRAM Compared to ECG 08/02/2023 12:55:59 First degree AV block now present Electronically Signed On 10-10-2023 14:42:34 CDT by Lloyd Wells M.D.
--- NOTE | 2023-10-06 14:48 | ED.SOB ---
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 Pt is having no CP/SOB now. Pt has cardiac history and had stent placement by Dr Wells at [facility] 2 years ago. Pt says he had similar spell a couple of months ago and was seen in the ER here and discharged. Pt says he has history of anxiety and panic as well. Related Data Home Medications Medication Instructions Recorded Confirmed allopurinol 100 mg tablet 200 mg PO BID 04/11/20 10/06/23 (Zyloprim) paroxetine HCl 40 mg tablet 40 mg PO DAILY 04/11/20 10/06/23 aspirin 81 mg tablet,delayed 81 mg PO DAILY 06/02/20 10/06/23 release (Adult Low Dose Aspirin) carvedilol 6.25 mg tablet (Coreg) 3.125 mg PO BID 03/28/22 10/06/23 sacubitril 97 mg-valsartan 103 mg 1 tablet PO BID 03/28/22 10/06/23 tablet (Entresto) atorvastatin 20 mg tablet 20 mg PO DAILY 05/21/22 10/06/23 furosemide 40 mg tablet 40 mg PO DAILY 05/21/22 10/06/23 lisinopril 5 mg tablet 5 mg PO DAILY 05/21/22 10/06/23 empagliflozin 10 mg tablet 10 mg PO DAILY 06/26/23 10/06/23 (Jardiance) magnesium oxide 400 mg PO DAILY 06/26/23 10/06/23 ticagrelor 90 mg tablet (Brilinta) 90 mg PO BID 06/26/23 10/06/23 Allergies Allergy/AdvReac Type Severity Reaction Status Date / Time No Known Allergies Allergy Verified 06/26/23 22:29 Review of Systems Review of Systems: All systems reviewed & are unremarkable except as noted in HPI and below PMFSH Past Medical History Medical History Cellulitis of right lower limb Chronic combined systolic and diastolic CHF (congestive heart failure) Dependence on wheelchair Dysthymic disorder GERD (gastroesophageal reflux disease) 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 Other Unknown family medical history Social History Social History Smoking packs per day: 1 Smoking cigarettes per day: 20.0 Smoking status: Never smoker Tobacco type: cigarettes Smokeless tobacco user: chewing tobacco Second hand tobacco smoke exposure: No Smoking end date: 02/28/94 Additional smoking assessment comments: Chewing tobacco daily Alcohol intake: never Alcohol use details: quit 1 month ago Substance use: never Substance use type: does not use Lack of Transportation: No Lack of Food: Never True Current Housing: I Have Housing Concerned About Future Housing: No Difficulty Paying Gas/Electric Bills: No Difficulty Paying for Meds: No Currently Unemployed: No Education: High School Diploma/GED Difficulty w/ Childcare or Family Care: No Gender identity (if verbalized by the patient): Male Sexual Orientation (if Verbalized by the Patient): Straight or Heterosexual Spiritual care concerns: No Exam Const: General: healthy appearing, no acute distress and diaphoretic Nutritional Appearance: obese Orientation/consciousness: patient oriented x3 Limitations: no limitations Neck: Neck: normal visual inspection, no lymphadenopathy and no meningeal signs Chest: Chest palpation & inspection: normal inspection of the chest Resp: Effort & Inspection: normal respiratory effort Auscultation: clear to auscultation bilaterally Cardio: Rate: regular rate Rhythm: regular rhythm GI: GI Palp: Yes Soft to palpation
[2023-10-06 14:55] LABS: Basophils Absolute Auto 0.08 K/mm3 (0.00-0.10); Basophils Percent Auto 0.7 % (0.0-1.0); Eosinophils Absolute Auto 0.01 K/mm3 (0.02-0.50); Eosinophils Percent Auto 0.1 % (1.0-6.0); Hematocrit 56.6 % (40.0-54.0); Hemoglobin 19.5 g/dL (14.0-18.0); Immature Granulocyte Absolute 0.05 K/mm3 (0.00-0.00); Immature Granulocyte Percent A 0.4 % (0.0-0.0); Lymphocytes Absolute Auto 1.19 K/mm3 (1.10-4.50); Lymphocytes Percent Auto 9.8 % (18.0-42.0); Mean Corpuscular HGB Conc 34.5 g/dL (32-36); Mean Corpuscular Hemoglobin 30.1 pg (27.0-31.0); Mean Corpuscular Volume 87.3 fL (78.0-102.0); Mean Platelet Volume 9.6 fl (8.7-11.0); Monocytes Absolute Auto 1.07 K/mm3 (0.10-0.90); Monocytes Percent Auto 8.8 % (2.0-11.0); Neutrophils Absolute Auto 9.75 K/mm3 (1.70-7.20); Neutrophils Percent Auto 80.2 % (50.0-70.0); Platelet Count Result 338 K/mm3 (150-420); Red Blood Count 6.48 M/mm3 (4.70-6.10); Red Cell Distribution Width 12.3 % (11.6-14.4); White Blood Count 12.2 K/mm3 (4.8-10.8)
[2023-10-06] MEDS: NITROGLYCERIN OINTMENT 1 INCH DOSE TRANSDERM (15:09)
[2023-10-06 15:10] LABS: Partial Thromboplastin Time 32.5 Sec (23.9-30.70); Prothrombin Time 11.2 Seconds (9.50-12.1)
[2023-10-06] MEDS: LORazepam (*CRX) 1 MG TABLET PO (15:42)
[2023-10-06 15:44] LABS: Alanine Aminotransferase 27 U/L (16-63); Albumin Level 3.5 g/dL (3.4-5.0); Alkaline Phosphatase 131 U/L (46-116); Anion Gap 19 mmol/L (4-12); Aspartate Amino Transferase 28 U/L (15-37); Bilirubin,Total 2.2 mg/dL (0.00-1.00); Blood Urea Nitrogen 10 mg/dL (7-18); Calcium 8.7 mg/dL (8.5-10.1); Carbon Dioxide 16 mmol/L (21-32); Chloride 95 mmol/L (98-108); Estimated CRCL calculation 89 ml/min; Estimated Glomerular Filt Rate > 60; Glucose 117 mg/dL (70-99); NT Pro B Type Natriuretic Pept 1465 pg/mL (0-125); Osmolality Calculated 270 mOsm/kg (285-295); Potassium 4.8 mmol/L (3.5-5.1); Sodium 130 mmol/L (136-145); Total Protein 7.7 g/dL (6.4-8.2); Troponin I 19.7 ng/L (0.00-60.4)
--- NOTE | 2023-10-06 15:48 | PC.NURSE ---
pt resting per cot. denies chest pain or any other needs at this time.call rebollar in reach
[2023-10-06] MEDS: IPRATROPIUM 0.5 MG/ALBUTEROL SULFATE 2.5 MG AMPUL.NEB 3 ML INHALATION (16:06)
[2023-10-06] MEDS: cloNIDine HCL 0.1 MG TABLET PO (16:29)
[2023-10-06 17:22] LABS: Troponin I 19.2 ng/L (0.00-60.4)
== END 2023-10-06 17:36 | disposition home or self-care (01) ==
PROVIDERS: Emergency Provider Emergency Medicine; PCP Internal Medicine
DX: F41.9 Anxiety disorder, unspecified (principal); R06.02 Shortness of breath; R07.89 Other chest pain; I11.0 Hypertensive heart disease with heart failure; I50.42 Chronic combined systolic (congestive) and diastolic (congestive) heart failure; F17.210 Nicotine dependence, cigarettes, uncomplicated; Z79.899 Other long term (current) drug therapy; Z79.82 Long term (current) use of aspirin
CPT/HCPCS: 36415; 71045; 80053; 83880; 84484; 85025; 85610; 85730; 93005; 99284; A9270

== ENCOUNTER 2023-10-24 10:05 | Outpatient (CLI) | payer OTHER, SELFPAY ==
[2023-10-24 10:56] LABS: Alanine Aminotransferase 22 U/L (16-63); Albumin Level 3.4 g/dL (3.4-5.0); Alkaline Phosphatase 101 U/L (46-116); Anion Gap 7 mmol/L (4-12); Aspartate Amino Transferase 21 U/L (15-37); Bilirubin,Total 1.2 mg/dL (0.00-1.00); Blood Urea Nitrogen 8 mg/dL (7-18); Calcium 9.2 mg/dL (8.5-10.1); Carbon Dioxide 27 mmol/L (21-32); Chloride 99 mmol/L (98-108); Cholesterol 152 mg/dL (0-200); Estimated Glomerular Filt Rate > 60; Glucose 127 mg/dL (70-99); HDL Direct 43 mg/dL (40-60); LDL Cholesterol Calculated 63 mg/dL (<130); Osmolality Calculated 276 mOsm/kg (285-295); Potassium 4.4 mmol/L (3.5-5.1); Sodium 133 mmol/L (136-145); Total Protein 6.9 g/dL (6.4-8.2); Triglycerides 230 mg/dL (0-150)
== END 2023-10-24 10:06 | disposition home or self-care (01) ==
LOC: CHSLAB 10:06
PROVIDERS: PCP Internal Medicine; Visit Provider Internal Medicine
DX: E78.2 Mixed hyperlipidemia (principal)
CPT/HCPCS: 36415; 80053; 80061

== ENCOUNTER 2024-02-06 10:07 | Outpatient (CLI) | payer OTHER, SELFPAY ==
[2024-02-06 10:22] LABS: Hematocrit 51.5 % (40.0-54.0); Hemoglobin 17.2 g/dL (14.0-18.0); Mean Corpuscular HGB Conc 33.4 g/dL (32-36); Mean Corpuscular Hemoglobin 29.6 pg (27.0-31.0); Mean Corpuscular Volume 88.6 fL (78.0-102.0); Mean Platelet Volume 8.8 fl (8.7-11.0); Platelet Count Result 347 K/mm3 (150-420); Red Blood Count 5.81 M/mm3 (4.70-6.10); Red Cell Distribution Width 13.1 % (11.6-14.4); White Blood Count 8.4 K/mm3 (4.8-10.8)
[2024-02-06 10:33] LABS: Add Urine Microscopic? NO; Appearance Urine Clear (Clear); Bilirubin Urine Negative (Negative); Blood Urine Negative (Negative); Color Urine Yellow (Yellow); Glucose Urine UA 3+ (Negative); Ketones Urine Trace (Negative); Leukocyte Esterase Ur Negative (Negative); Nitrate Urine Negative (Negative); Protein Urine Negative (Negative); Urobilinogen Urine 0.2 mg/dL (0.2-1.0)
[2024-02-06 10:35] LABS: Creatinine Urine 124.71 mg/dL (40-278); Hemoglobin A1C 5.6 % (<5.7); MALB Creatinine Ratio 10.4 mg/g (0-30); Microalbumin Urine Random < 13.0 mg/L
[2024-02-06 11:20] LABS: Alanine Aminotransferase 19 U/L (16-63); Albumin Level 3.4 g/dL (3.4-5.0); Alkaline Phosphatase 89 U/L (46-116); Anion Gap 12 mmol/L (4-12); Aspartate Amino Transferase 15 U/L (15-37); Bilirubin,Total 0.6 mg/dL (0.00-1.00); Blood Urea Nitrogen 12 mg/dL (7-18); Calcium 9.5 mg/dL (8.5-10.1); Carbon Dioxide 26 mmol/L (21-32); Chloride 98 mmol/L (98-108); Cholesterol 116 mg/dL (0-200); Creatine Kinase 59 U/L (39-308); Estimated Glomerular Filt Rate > 60; Glucose 106 mg/dL (70-99); HDL Direct 34 mg/dL (40-60); LDL Cholesterol Calculated 48 mg/dL (<130); NT Pro B Type Natriuretic Pept 435 pg/mL (0-125); Osmolality Calculated 281 mOsm/kg (285-295); Potassium 4.3 mmol/L (3.5-5.1); Prostate Specific Antigen 1.1 ng/mL (< OR = 4.0); Sodium 136 mmol/L (136-145); Total Protein 7.4 g/dL (6.4-8.2); Triglycerides 171 mg/dL (0-150); Uric Acid 2.4 mg/dL (3.5-7.2)
== END 2024-02-06 10:08 | disposition home or self-care (01) ==
LOC: CHSLAB 10:09
PROVIDERS: PCP Internal Medicine; Visit Provider Internal Medicine
DX: E11.65 Type 2 diabetes mellitus with hyperglycemia (principal); I10 Essential (primary) hypertension; E78.2 Mixed hyperlipidemia; E79.0 Hyperuricemia without signs of inflammatory arthritis and tophaceous disease; Z12.5 Encounter for screening for malignant neoplasm of prostate; I50.9 Heart failure, unspecified
CPT/HCPCS: 36415; 80053; 80061; 81003; 82043; 82550; 83036; 83880; 84153; 84550; 85027; G0103

== ENCOUNTER 2024-02-20 11:04 | Outpatient (CLI) | payer OTHER, SELFPAY ==
--- NOTE | ~2024-02-20 | XR_ITS ---
EXAMINATION: XR shoulder RT min 2V DATE: 02/20/2024 11:27 INDICATION: Right shoulder pain TECHNIQUE: AP internally and externally rotated, AP oblique externally rotated and transscapular Y vi ews of the right shoulder were obtained. COMPARISON: None FINDINGS: Normal alignment. No fracture. Glenohumeral joint is normal. With moderate joint space narrowing at the acromioclavicular joint with small subarticular lucencies at both sides of the joint space which could represent degenerative subchondral cyst related to moderate osteoarthritis or small erosions in the setting of an inflammatory or crystalline arthritis. Soft tissues are unremarkable. Visualized p ortions of the lungs are clear. IMPRESSION: Moderate right acromioclavicular osteoarthritis with subarticular lucencies which could represent deg enerative subchondral cysts or superimposed erosions related to an inflammatory or crystalline arthri tis. Reviewed, dictated and finalized at location B. [employer]OR SALES SUPPORT IMPRESSION: Moderate right acromioclavicular osteoarthritis with subarticular lucencies whi ch could represent degenerative subchondral cysts or superimposed erosions rela ventura to an inflammatory or crystalline arthritis.
== END 2024-02-20 11:05 | disposition home or self-care (01) ==
PROVIDERS: PCP Internal Medicine; Visit Provider Internal Medicine
DX: M25.511 Pain in right shoulder (principal)
CPT/HCPCS: 73030

== ENCOUNTER 2024-04-25 11:21 | Outpatient (CLI) | payer OTHER, SELFPAY ==
[2024-04-25 12:14] LABS: Anion Gap 12 mmol/L (4-12); Blood Urea Nitrogen 12 mg/dL (7-18); Calcium 9.7 mg/dL (8.5-10.1); Carbon Dioxide 29 mmol/L (21-32); Chloride 98 mmol/L (98-108); Estimated Glomerular Filt Rate > 60; Glucose 151 mg/dL (70-99); Osmolality Calculated 290 mOsm/kg (285-295); Potassium 5.3 mmol/L (3.5-5.1); Sodium 139 mmol/L (136-145)
--- OUTSIDE RECORDS SUMMARY | 2024-04-25 13:17 | XMS_ITS | Encounter Summary ---
Author Organization [facility] Address [address] [place] [address] Care Team Providers Care Machinist Job Setter Name Role Phone Antione Mcgraw MD Primary Care Provider [phone] Tray Truong MD Unavailable Otis Adan MD Unavailable Unavailabl Eliecer Martinez MD Unavailable [phone] [facility] Unavailable + Encounter Details Date Type Department Care Team (Late st Contact Info) Description 07/25/2020 Abstract [facility] [address] [place] [address] Otis Adan MD Social History Tobacco Use Types Packs/Day Years Used Date Smoking Tobacco: Former Cigarettes Q uit: 2000 Smokeless Tobacco: Former Chew Alcohol Use Standard Drinks/Week Comments Not Currently 0 (1 standard drink = 0.6 oz pur e alcohol) Sex and Gender Information Value Date Recorded Sex Assigned at Not on file Legal Sex Male 9:55 PM CDT Gender Identity Not on file Sexual Orientation Not on file COVID-19 Exposure Response Date Recorded In the last month, have you been in contact with someone who was confirmed or suspected to have Coronavirus / COVID-19? No / Unsure 07/28/2020 8:56 AM CDT documented as of this encounter Plan of Treatment Not on file documented as of this encounter Procedures Procedure Name Priority Date/Time Associated Diagnosis Comments CMP (OUTSIDE LAB) Routine 07/23/2020 CBC (OUTSIDE LAB) Routine 07/23/2020 HEMOGLOBIN, GLYCOSYLATED Routine 07/23/2020 BNP Routine 07/23/2020 documented in this encounter Results * CBC (OUTSIDE LAB) (07/23/2020) Pathologist [facility] WBC 7.6 3.8 - 10.8 HGB 15.1 13.2 - 17.1 HCT 46.4 38.5 - 50.0 PLT 271 140 - 400 RBC 5.42 4.20 - 5.80 07/23/2020 us Antione Mcgraw MD LAB-OUTSIDE/ABSTRACTED Final Result * BNP (07/23/2020) Pathologist [facility] B TYPE NATRIURETIC PEPTIDE 1,039 <100 07/23/2020 us Antione Mcgraw MD LABORATORY Final Result * HEMOGLOBIN, GLYCOSYLATED (07/23/2020) Pathologist [facility] HGB A1C 6.5 <5.7 % 07/23/2020 us Antione Mcgrwa MD LABORATORY Final Result * CMP (OUTSIDE LAB) (07/23/2020) Pathologist [facility] SODIUM S/P/B 139 135 - 146 POTASSIUM S/P/B 4.3 3.5 - 5.3 CHLORIDE S/P/B 101 98 - 110 CO2 27 20 - 32 BUN 21 7 - 25 CREATININE S/P/B 1.15 0.7 - 1.33 EGFR AFR. AMER. 80 <=90 EGFR NON-AFR. AMER. 69 <=90 CALCIUM S/P/B 9.3 8.6 - 10.3 GLUCOSE 102 65 - 99 mg/dL TOTAL PROTEIN S/P/B 6.8 6.1 - 8.1 ALBUMIN S/P/B 3.8 3.6 - 5.1 AST 15 10 - 35 ALT 11 9 - 46 ALKALINE PHOSPHATASE S/P/B 84 35 - 144 BILIRUBIN TOTAL S/P/B 1.0 0.2 - 1.2 07/23/2020 Antione Mcgraw MD LAB-OUTSIDE/ABSTRACTED Final Result documented in this encounter Visit Diagnoses Not on filedocumented in this encounter Additional Health Concerns Infection Onset Date Last Indicated Resolved Time COVID-19 Rule Out 07/28/2020 07/28/2020 07/29/2020 7:24 PM CDT COVID-19 Rule Out 09/02/2020 09/02/2020 09/02/2020 8:17 PM CDT documented as of this encounter Care Teams Machinist Job Setter Relationship Specialty Start Date End Date Antione Mcgraw MD [address] [place] [address] PCP - General INTERNAL MEDICINE 04/28/20 Tray Truong MD [address] [place] [address] Vascular/Chemical Compounder INTERNAL MEDICINE 04/28/20 Otis Adan MD [address] [place] [address] Consulting Physician CARDIOVASCULAR DISEASE 09/11/20 06/21/23 Eliecer Harper MD [address] [place] [address] INTERVENTIONAL CARDIOLOGY 06/22/23 Tianna Lopes ANP- [address] [place] [id number] Nurse Practitioner NURSE PRACTITIONER ADULT HEALTH 06/22/23 documented as of this encounter
--- OUTSIDE RECORDS SUMMARY | 2024-04-25 13:17 | XMS_ITS | Encounter Summary ---
Author Organization [facility] Address [address] [place] [address] Care Team Providers Care Casino Cage Supervisor Name Role Phone Antione Mcgraw MD Primary Care Provider [phone] Tray Truong MD Unavailable Otis Adan MD Unavailable Unavailabl Eliecer Martinez MD Unavailable [phone] Tianna Lopes [facility]- Unavailable + Encounter Details Date Type Department Care Team (Late st Contact Info) Description 03/20/2021 Abstract [facility] [address] [place] [address] Otis Adan MD Social History Tobacco Use [...] on file Sexual Orientation Not on file documented as of this encounter Plan of Treatment Not on file documented as of this encounter Procedures Procedure Name Priority Date/Time Associated Diagnosis Comments CMP (ABSTRACTED LAB) Routine 02/05/2021 CBC (OUTSIDE LAB) Routine 02/05/2021 HEMOGLOBIN, GLYCOSYLATED Routine 02/05/2021 documented in this encounter Results * CBC (OUTSIDE LAB) (02/05/2021) WBC 10.2 4.8 - 10.8 HGB 17.6 14.0 - 18.0 HCT 51.0 40.0 - 54.0 PLT 320 150 - 420 RBC 5.66 4.70 - 6.10 02/05/2021 us Doc [facility] Abstract LAB-OUTSIDE/ABSTRACTED Final Result * HEMOGLOBIN, GLYCOSYLATED (02/05/2021) Pathologist [facility] HGB A1C 5.2 <5.7 % 02/05/2021 us Doc [facility] Abstract LABORATORY Final Result * CMP (ABSTRACTED LAB) (02/05/2021) Pathologist [facility] SODIUM S/P/B 137 136 - 145 POTASSIUM S/P/B 5.7 3.5 - 5.1 CHLORIDE S/P/B 98 98 - 108 CO2 34 21 - 32 BUN 12 7 - 18 CREATININE S/P/B 0.92 0.7 - 1.3 EGFR NON-AFR. AMER. >60 <=90 CALCIUM S/P/B 9.4 8.5 - 10.1 GLUCOSE 102 70 - 99 mg/dL TOTAL PROTEIN S/P/B 7.3 6.4 - 8.2 ALBUMIN S/P/B 3.6 3.4 - 5.0 AST 26 15 - 37 ALT 27 16 - 63 ALKALINE PHOSPHATASE S/P/B 97 46 - 116 BILIRUBIN TOTAL S/P/B 0.7 0.00 - 1.00 02/05/2021 us Doc [facility] Abstract LAB-OUTSIDE/ABSTRACTED Final Result documented in this encounter Visit Diagnoses Not on filedocumented in this encounter Care Teams Casino Cage Supervisor Relationship Specialty Start Date End Date Antione Mcgraw MD [address] [place] [address] PCP - General INTERNAL MEDICINE 04/28/20 Tray Truong MD [address] [place] [address] Vascular/Security Intern INTERNAL MEDICINE 04/28/20 Otis Adan MD [address] [place] [address] Consulting Physician CARDIOVASCULAR DISEASE 09/11/20 06/21/23 Eliecer Harper MD [address] [place] [address] INTERVENTIONAL CARDIOLOGY 06/22/23 Tianna Lopes, [facility]- [address] [place] [address] Nurse Practitioner NURSE PRACTITIONER ADULT HEALTH 06/22/23 documented as of this encounter
--- OUTSIDE RECORDS SUMMARY | 2024-04-25 13:17 | XMS_ITS | Clinical Summary ---
Author Organization [facility] Address [address] [place] [address] Care Team Providers Care Grease Press Helper Name Role Phone Antione Mcgraw MD Primary Care Provider [phone] Tray Truong MD Unavailable Eliecer Harper MD Unavailable [phone] Tianna Lopes [facility]- Unavailable [phone] Allergies No known active allergies Medications allopurinol 100 MG tablet Take 1 tablet (100 mg total) by mouth daily. 04/11/2020 Active PARoxetine 40 MG tablet Take 1 tablet (40 mg total) by mouth every morning. 04/11/2020 Active tiZANidine 4 MG tablet Take 1 tablet (4 mg total) by mouth every 6 (six) hours as needed. 04/11/2020 Active potassium chloride CR 20 MEQ tablet Take 1 tablet (20 mEq total) by mouth daily. 04/27/2020 Active famotidine 20 MG tablet Take 1 tablet (20 mg total) by mouth 2 (two) times daily. Active furosemide 40 MG tablet Take 1 tablet (40 mg total) by mouth daily. Active aspirin EC (ECOTRIN) 81 MG tablet Take 2 tablets (162 mg total) by mouth daily. Active spironolactone (ALDACTONE) 25 MG tablet Take 1 tablet (25 mg total) by mouth daily. 90 tablet 2 04/08/2022 Active JARDIANCE 10 MG tablet 04/22/2022 Active magnesium oxide (MAG-OX) 400 (240 Mg) MG tablet TAKE ONE TABLET BY MOUTH DAILY 30 tablet 11 06/01/2022 Active rosuvastatin (CRESTOR) 10 MG tablet 10/13/2022 Active ENTRESTO 97-103 MG tablet take one tablet by mouth twice a day 60 tablet 6 06/07/2023 Active ticagrelor (BRILINTA) 90 mg tablet take one tablet by mouth twice a day 60 tablet 8 07/11/2023 Active carvedilol (COREG) 3.125 MG tablet Take 2 tablets (6.25 mg total) by mouth 2 (two) times daily. 60 tablet 11 02/09/2024 Active Active Problems Problem Noted Date Diagnosed Date Leg edema 09/30/2020 Chronic venous insufficiency 09/30/2020 Coronary artery disease invo lving [place] coronary artery of [place] heart without angina pectoris 07/31/2020 Ischemic cardiomyopathy 07/31/2020 Systolic heart failure ([facility]) 021 Abnormal echocardiogram 07/08/2020 Abnormal EKG 07/08/2020 PAD (peripheral artery disease) 04/28/2020 Ulcer of lower extremity wit h fat layer exposed, unspecified laterality ([facility]) 04/28/2020 Mixed hyperlipidemia 04/28/2020 Hypertension 04/28/2020 Lymphedema 04/28/2020 Numbness and tingling in both hands 10/14/2014 Weakness of both arms 10/14/2014 Weakness of both lower extremities 10/14/2014 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[facility]) Resolved Problems Problem Noted Date Diagnosed Date Resolved Date CHF (congestive heart failur e) ([facility]) 04/18/2021 Encounters Date Type Department Care Team Description 02/09/2024 10:00 AM PUBLIC RELATIONS OFFICER Office Visit [facility] [place] [address] Tianna Lopes ANP- Follow Up (CAD, ISCM, HTN); Annual 02/09/2024 Travel from Last 3 Months Family History Medical History Relation Comments Cancer Father Kidney Disease Mother Relation Status Comments Father Maternal Grandfather Maternal Grandmother Mother Paternal Grandfather Paternal Grandmother Sister 1 Alive Sister 2 Alive Social History Tobacco Use Types Packs/Day Years Used Date Smoking Tobacco: Former Cigarettes Q uit: 2000 Smokeless Tobacco: Former Chew Tobacco Cessation:Counseling Given: Not Answered Alcohol Use Standard Drinks/Week Comments Not Currently 0 (1 standard drink = 0.6 oz pur e alcohol) Sex and Gender Information Value Date Recorded Sex Assigned at Not on file Legal Sex Male 9:55 PM CDT Gender Identity Not on file Sexual Orientation Not on file Last Filed Vital Signs Vital Sign Reading Time Taken Comments Blood Pressure 149/95 02/09/2024 10:56 AM PUBLIC RELATIONS OFFICER Pulse 95 02/09/2024 10:56 AM PUBLIC RELATIONS OFFICER Temperature 36.5 C (97.7 F) 09/05/2020 7:47 AM CDT Respiratory Rate 12 02/09/2024 10:5 6 AM PUBLIC RELATIONS OFFICER Oxygen Saturation 99% 02/09/2024 10: 56 AM PUBLIC RELATIONS OFFICER Inhaled Oxygen Concentration - - Weight 102.2 kg (225 lb 6.4 oz) 024 10:56 AM PUBLIC RELATIONS OFFICER Height 175.3 cm (5' 9 ) 02/09/2024 10:5 6 AM PUBLIC RELATIONS OFFICER Body Mass Index 33.29 02/09/2024 10:56 AM PUBLIC RELATIONS OFFICER Plan of Treatment Health Maintenance Due Date Last Done Comments ASCVD Statin 1961 Colorectal Cancer Screening Colonoscopy (10 Years) 1961 Annual Physical 1964 Pneumococcal Vaccine: Pediatrics (0 to 5 Years) and At-Risk Patients (6 to 64 Years) (1 of 2 - PCV) 07/10/1967 Hepatitis C 07/10/1979 DTaP, Tdap and Td Vaccines ( 1 - Tdap) 1980 Zoster Vaccines (1 of 2) 07/10/2011 RSV Immunization or 60+ Years (1 - Risk 60-74 years 1-dose series) 2021 ASCVD LDL 11/03/2022 11/03/2021, 06/21/2020 COVID-19 Vaccine (1 - 2023-2 5 season) 2023 Influenza Adult (#1) 2023 Meningococcal B Vaccine Aged Out No l onger eligible based on patient's age to complete this topic Meningococcal Vaccine Aged Out No annel edith eligible based on patient's age to complete this topic RSV Immunizations Under 20 Months Aged Out No longer eligible b ased on patient's age to complete this topic Procedures Procedure Name Priority Date/Time Associated Diagnosis Comments LIPID PANEL Routine 11/03/2021 from Last 3 Months or Most Recently Relevant to Health Maintenance Results * LIPID PANEL (11/03/2021) CHOLESTEROL 155 0 - 200 HDL 34 40 - 60 TRIGLYCERIDES 194 0 - 150 NON HDL CHOLESTEROL - - CHOL/HDL RATIO - - LDL (CALCULATED) 82 <130 VLDL CALCULATION - - 11/03/2021 us Default History Genericprovider LABORATORY Final Result from Last 3 Months or Most Recently Relevant to Health Maintenance Insurance [employer] Advance Directives * Full Code (Latest Code Status on File) Date Activated Date Inactivated Comments 07/31/2020 3:11 PM 07/31/2020 7:53 PM Care Teams Grease Press Helper Relationship Specialty Start Date End Date Antione Mcgraw MD [address] [place] [address] PCP - General INTERNAL MEDICINE 04/28/20 Tray Truong MD [address] [place] [address] Vascular/Telecom Billing Analyst INTERNAL MEDICINE 04/28/20 Eliecer Harper MD [address] [place] [address] INTERVENTIONAL CARDIOLOGY 06/22/23 Tianna Lopes [facility]- [address] [place] [address] Nurse Practitioner NURSE PRACTITIONER ADULT HEALTH 06/22/23
--- OUTSIDE RECORDS SUMMARY | 2024-04-25 13:17 | XMS_ITS | Encounter Summary ---
Author Organization [facility] Address [address] [place] [address] Care Team Providers Care Database Administrator Name Role Phone Antione Mcgraw MD Primary Care Provider [phone] Tray Truong MD Unavailable Otis Adan MD Unavailable Unavailabl Eliecer Martinez MD Unavailable [phone] Tianna Lopes [facility] Unavailable + Encounter Details Date Type Department Care Team (Late st Contact Info) Description 08/04/2020 Abstract [facility] [address] [place] [address] Otis Adan MD Social History Tobacco Use [...] have Coronavirus / COVID-19? No / Unsure 07/31/2020 11:08 AM CDT documented as of this encounter Plan of Treatment Not on file documented as of this encounter Visit Diagnoses Not on filedocumented in this encounter Additional Health Concerns Infection Onset Date Last Indicated Resolved Time COVID-19 Rule Out 09/02/2020 09/02/2020 09/02/2020 8:17 PM CDT documented as of this encounter Care Teams Database Administrator Relationship Specialty Start Date End Date Antione Mcgraw MD [address] [place] [id number] PCP - General INTERNAL MEDICINE 04/28/20 Tray Truong MD [address] [place] [address] Vascular/Strategic Intelligence Officer INTERNAL MEDICINE 04/28/20 Otis Adan MD [address] [place] [address] Consulting Physician CARDIOVASCULAR DISEASE 09/11/20 06/21/23 Eliecer Harper MD [address] [place] [address] INTERVENTIONAL CARDIOLOGY 06/22/23 Tianna Lopes, ANP- [address] [place] [id number] Nurse Practitioner NURSE PRACTITIONER ADULT HEALTH 06/22/23 documented as of this encounter
--- OUTSIDE RECORDS SUMMARY | 2024-04-25 13:17 | XMS_ITS | Encounter Summary ---
Author Organization [facility] Address [address] [place] [address] Care Team Providers Care Lead Oracle Developer Name Role Phone Antione Mcgraw MD Primary Care Provider [phone] Tray Truong MD Unavailable Otis Adan MD Unavailable Unavailabl Eliecer Martinez MD Unavailable [phone] Tianna Lopes [facility] Unavailable + Encounter Details Date Type Department Care Team (Late st Contact Info) Description 06/30/2021 SPECIFICATION CONSULTANT ONLY [facility] eld [address] [place] [phone] Otis Adan MD Social History Tobacco Use Types Packs/Day Years Used Date Smoking Tobacco: Former Cigarettes Q uit: 1999 Smokeless Tobacco: Former Chew Alcohol Use Standard Drinks/Week Comments Not Currently 0 (1 standard drink = 0.6 oz pur e alcohol) Sex and Gender Information Value Date Recorded Sex Assigned at Not on file Legal Sex Male 9:55 PM CDT Gender Identity Not on file Sexual Orientation Not on file COVID-19 Exposure Response Date Recorded In the last 10 days, have yo u been in contact with someone who was confirmed or suspected to have Coronavirus/COVID-19? No / Unsure 06/30/2021 10:02 AM CDT documented as of this encounter Progress Notes * Otis Adan MD - 06/30/2021 12:00 AM CDT HISTORY OF PRESENT ILLNESS: Mr. Diaz is seen in the cardiology clinic today for a scheduled followup visit. He reports that he is doing well from a cardiac standpoint. Mr. Diaz reports that he has more energy since last being seen last year. He relates that his blood pressure generally runs around 130/80 mmHg. He has problems with Guillain-[place] are gradually improving. Mr. Diaz denies any anginal chest pain. He has had some shortness of breath when he is going to stand up. He denies any overt symptoms of congestive heart failure such as paroxysmal nocturnal dyspnea, orthopnea, or pedal edema. He has had no palpitations or syncope, but does have occasional lightheadedness. He denies any falls. He has had no recent symptoms to suggest a TIA or CVA. He is tolerating his present medications well. Evaluation during the clinic visit included an EKG, which confirmed the presence of normal sinus rhythm at a rate of 94 beats per minute. A first-degree AV block was present and associated with low QRS voltage in the precordial leads with evidence of a probable anterolateral myocardial infarction of undetermined age. There was also a suggestion of a possible inferior myocardial infarction of undetermined age. Voltage criteria for left ventricular hypertrophy was present and associated with a repolarization abnormality. ALEJANDRA results from March of this year showed a resting ALJEANDRA of 1.1 on the right and a resting of ALEJANDRA of 1.7 on the left. It was felt that the ALEJANDRA results were within normal limits on the left, but somewhat reduced on the right. RECOMMENDATION AND PLAN: Mr. Diaz's cardiac status appears clinically stable at the present time without ongoing anginal chest pain, overt symptoms of congestive heart failure, or clinical evidence of hemodynamically significant arrhythmias. Continued medical therapy and cardiac risk factor modification seems most appropriate at the present time. I have recommended the following to Mr. Diaz: 1. Continue present medical regimen without alteration. 2. Lipid management per Dr. Mcgraw. A reasonable goal would be to maintain an LDL cholesterol fraction of 70 or less associated with a normal total cholesterol to HDL cholesterol ratio and serum triglyceride level. 3. Return to the cardiology clinic for routine followup in 6 months. I have encouraged Mr. Diaz to contact me in the meantime should he have any questions or problems. #[id number] /[facility] [place] ERCIAL AIRLINE PILOT documented in this encounter Plan of Treatment Not on file documented as of this encounter Visit Diagnoses Not on filedocumented in this encounter Care Teams Lead Oracle Developer Relationship Specialty Start Date End Date Antione Mcgraw MD [address] [place] [phone] PCP - General INTERNAL MEDICINE 04/28/20 Tray Truong MD [address] [place] [address] Vascular/Pipelines Superintendent INTERNAL MEDICINE 04/28/20 Otis Adan MD [address] [place] [address] Consulting Physician CARDIOVASCULAR DISEASE 09/11/20 06/21/23 Eliecer Harper MD [address] [place] [address] INTERVENTIONAL CARDIOLOGY 06/22/23 Tianna Lopes, [facility]- [address] [place] [phone] Nurse Practitioner NURSE PRACTITIONER ADULT HEALTH 06/22/23 documented as of this encounter
== END 2024-04-25 11:22 | disposition home or self-care (01) ==
LOC: CHSLAB 11:22
PROVIDERS: PCP Internal Medicine; Visit Provider Internal Medicine
DX: I10 Essential (primary) hypertension (principal)
CPT/HCPCS: 36415; 80048

== ENCOUNTER 2024-08-06 10:12 | Outpatient (CLI) | payer OTHER, SELFPAY ==
[2024-08-06 10:28] LABS: Basophils Absolute Auto 0.03 K/mm3 (0.00-0.10); Basophils Percent Auto 0.3 % (0.0-1.0); Eosinophils Absolute Auto 0.15 K/mm3 (0.02-0.50); Eosinophils Percent Auto 1.6 % (1.0-6.0); Hematocrit 53.3 % (40.0-54.0); Hemoglobin 16.7 g/dL (14.0-18.0); Immature Granulocyte Absolute 0.03 K/mm3 (0.00-0.00); Immature Granulocyte Percent A 0.3 % (0.0-0.0); Lymphocytes Absolute Auto 1.59 K/mm3 (1.10-4.50); Lymphocytes Percent Auto 17.2 % (18.0-42.0); Mean Corpuscular HGB Conc 31.3 g/dL (32-36); Mean Corpuscular Hemoglobin 29.9 pg (27.0-31.0); Mean Corpuscular Volume 95.3 fL (78.0-102.0); Mean Platelet Volume 9.5 fl (8.7-11.0); Monocytes Absolute Auto 1.05 K/mm3 (0.10-0.90); Monocytes Percent Auto 11.4 % (2.0-11.0); Neutrophils Absolute Auto 6.37 K/mm3 (1.70-7.20); Neutrophils Percent Auto 69.2 % (50.0-70.0); Platelet Count Result 291 K/mm3 (150-420); Red Blood Count 5.59 M/mm3 (4.70-6.10); Red Cell Distribution Width 14.5 % (11.6-14.4); White Blood Count 9.2 K/mm3 (4.8-10.8)
[2024-08-06 10:38] LABS: Add Urine Microscopic? NO; Appearance Urine Clear (Clear); Bilirubin Urine Negative (Negative); Blood Urine Trace-intact (Negative); Color Urine Yellow (Yellow); Glucose Urine UA 3+ (Negative); Ketones Urine Negative (Negative); Leukocyte Esterase Ur Negative LEU/UL (Negative); Nitrate Urine Negative (Negative); Protein Urine Negative (Negative); Urobilinogen Urine 0.2 mg/dL (0.2-1.0); pH Urine 5.5 (5.0-8.0)
[2024-08-06 11:09] LABS: Alanine Aminotransferase 14 U/L (6-50); Albumin Level 4.1 g/dL (3.5-5.1); Alkaline Phosphatase 99 U/L (38-126); Anion Gap 11 mmol/L (4-12); Aspartate Amino Transferase 24 U/L (17-59); Bilirubin,Total 0.8 mg/dL (0.2-1.3); Blood Urea Nitrogen 12 mg/dL (9-20); Calcium 9.1 mg/dL (8.4-10.2); Carbon Dioxide 20 mmol/L (22-30); Chloride 104 mmol/L (98-107); Cholesterol 118 mg/dL (0-200); Creatine Kinase 63 U/L (55-170); Estimated Glomerular Filt Rate > 60; Glucose 103 mg/dL (65-110); HDL Direct 37 mg/dL; LDL Cholesterol Calculated 43 mg/dL (<130); Osmolality Calculated 279 mOsm/kg (285-295); Potassium 4.2 mmol/L (3.4-5.0); Sodium 135 mmol/L (137-145); Total Protein 7.3 g/dL (6.3-8.2); Triglycerides 191 mg/dL (<150); Uric Acid 3.6 mg/dL (3.5-8.5)
[2024-08-06 11:15] LABS: Creatinine Urine 92.5 mg/dL
[2024-08-06 11:16] LABS: Hemoglobin A1C 5.7 % (<5.7)
== END 2024-08-06 10:13 | disposition home or self-care (01) ==
LOC: CHSLAB 10:15
PROVIDERS: PCP Internal Medicine; Visit Provider Internal Medicine
DX: D75.1 Secondary polycythemia (principal); E11.65 Type 2 diabetes mellitus with hyperglycemia; E78.2 Mixed hyperlipidemia; E79.0 Hyperuricemia without signs of inflammatory arthritis and tophaceous disease; N39.0 Urinary tract infection, site not specified
CPT/HCPCS: 36415; 80053; 80061; 81003; 82043; 82550; 83036; 84550; 85025

== ENCOUNTER 2024-10-04 10:51 | Outpatient (RCR) | payer OTHER, SELFPAY ==
--- NOTE | 2024-10-04 11:50 | OPREHPOC ---
Outpatient Therapy Plan of Care This is a Multidisciplinary Plan of Care that may contain components documented by all disciplines (PT, OT, and ST.) PT Problem 1 PT Problem #1 Knowledge Deficit PT Goal 1 Goal / Goal Update The patient will be independent in a home exercise program. Target Visit 2 PT Problem 2 PT Problem #2 Pain PT Goal 1 Goal / Goal Update The patient will report no greater than 2/10 right shoulder pain with reaching and lifting. The patient will report ability to sleep without right shoulder pain. Target Visit 10 PT Problem 3 PT Problem #3 Impaired Range of Motion PT Goal 1 Goal / Goal Update The patient will demonstrate at least 140 degrees right shoulder flexion to improve overhead reaching. The patient will demonstrate functional ER to T1 to improve bathing/grooming ability. Target Visit 10 PT Problem 4 PT Problem #4 Impaired Strength PT Goal 1 Goal / Goal Update The patient will demonstrate 4/5 or greater right shoulder strength without pain elicited. Target Visit 10
--- NOTE | 2024-10-04 11:50 | PTOPEVAL1 ---
Assessment and note entered by Sindy Azul, PT Evaluation Information Assessment Status Evaluation Diagnosis R shoulder DJD ICD-10 Condition Codes (PT) Pain in right shoulder M25.511 Onset 10/01/24 Subjective Information Otis Diaz reports he has been having right shoulder pain for a couple years and it worsened at the beginning of 2024. He will have a MRI on . He is right handed. He is noting difficulty raising his arm up to the side, overhead, and behind the back. He is using Voltaren rub, OTC tylenol arthritis, and Aleve. Reported Pain Level Pain Score 1: Self Report Assessment PT Clinical Summary Otis Diaz presents with right shoulder pain and has been diagnosed with degenerative joint disease. He also has a history of GBS. He has difficulty with reaching overhead, to the side, and behind his back. He has difficulty sleeping as well. He objectively demonstrates decreased and painful right shoulder AROM, decreased right shoulder strength, and positive special tests consistent with shoulder impingement and rotator cuff tendonopathy. He will benefit from skilled PT to address these limitations and improve daily function. Plan of Care Interventions Electrical Stimulation,Hot Pack/Cold Pack,Manual Therapy,Neuro Re-education,Patient/Caregiver Education,Therapeutic Activities,Therapeutic Exercise PT Services Indicated Yes Treatment Frequency and 2 times a week for 10 visits Duration These treatments will address the objective and functional deficits as defined above. The patient will be advanced safely and appropriately in order for the patient to progress towards his/her prior level of function. Additional exercises will be introduced and as well as a comprehensive home exercise program upon discharge, if needed, ?to ensure carryover of functional gains achieved in the clinic. This treatment plan has been reviewed and agreement upon by the patient.
--- NOTE | 2024-10-16 12:58 | PCPTNOTE ---
Patient called & cancelled scheduled appointment this date due to severe low back pain. -Sindy Azul, PT
--- NOTE | 2024-11-01 11:14 | PCPTNOTE ---
Cancelled session. Has cold sweats.
--- NOTE | 2024-11-08 16:00 | OPREHPOC ---
Outpatient Therapy Plan of Care This is a Multidisciplinary Plan of Care that may contain components documented by all disciplines (PT, OT, and ST.) PT Problem 1 PT Problem #1 Knowledge Deficit PT Goal 1 Goal / Goal Update The patient will be independent in a home exercise program. Target Visit 2 Progress Met PT Problem 2 PT Problem #2 Pain PT Goal 1 Goal / Goal Update The patient will report no greater than 2/10 right shoulder pain with reaching and lifting. The patient will report ability to sleep without right shoulder pain. Target Visit 10 Progress Not Met PT Problem 3 PT Problem #3 Impaired Range of Motion PT Goal 1 Goal / Goal Update The patient will demonstrate at least 140 degrees right shoulder flexion to improve overhead reaching. The patient will demonstrate functional ER to T1 to improve bathing/grooming ability. Target Visit 10 Progress Not Met PT Problem 4 PT Problem #4 Impaired Strength PT Goal 1 Goal / Goal Update The patient will demonstrate 4/5 or greater right shoulder strength without pain elicited. Target Visit 10 Progress Not Met
--- NOTE | 2024-11-08 16:00 | PTOPDC ---
Assessment and note entered by Sindy Azul, PT Evaluation Information Assessment Status Discharge - Pt Not Present Diagnosis R shoulder DJD ICD-10 Condition Codes (PT) Pain in right shoulder M25.511 Onset 10/01/24 Subjective Information Otis Diaz is not present for his discharge but called in and asked to be discharged. On his last date of service, he reported a MRI showed a SLAP tear, RC tendonosis, and AC joint arthritis. Assessment PT Clinical Summary Otis Diaz attended 4 skilled PT visits for right shoulder OA. He called on 11/08/24 and asked to be discharged. He reported MRI findings of SLAP tear, RC tendonosis, and AC joint arthritis on his last date of service. Plan of Care PT Services Indicated Yes
== END 2024-10-25 20:00 | disposition home or self-care (01) ==
LOC: CHSPT 10:51
PROVIDERS: PCP Internal Medicine; Visit Provider Internal Medicine
DX: M25.511 Pain in right shoulder (principal); M19.011 Primary osteoarthritis, right shoulder
CPT/HCPCS: 97014; 97110; 97161; G0283

== ENCOUNTER 2024-10-18 14:16 | Outpatient (CLI) | payer OTHER, SELFPAY ==
--- NOTE | ~2024-10-18 | MR_ITS ---
MRI of the right shoulder Technique: Axial proton-density fat-sat images, coronal proton density fat-sat and T2 fat-sat images, and sagittal T1-weighted and T2 fat-sat images were acquired. Clinical History: Pain, degenerative joint disease Findings: There is severe AC joint degenerative change with bony productive change of the distal clavicle and small subacromial spur present. Coracoclavicular, coracoacromial, and coracohumeral ligaments appear intact. Supraspinatus and infraspinatus tendons are intact, with mild to moderate tendinosis. Subscapularis tendon intact with mild to moderate tendinosis. Tendon of the long head of the biceps is intact. There is degenerative SLAP tear of the labrum. Inferior glenohumeral ligament is intact. No significant glenohumeral joint effusion seen. There is mild chondromalacia the glenohumeral joint. There is small amount of fluid tracking along the infraspinatus tendon. No muscle atrophy or edema evident otherwise. Impression: Degenerative SLAP tear of the labrum. Severe AC joint degenerative change. Mild rotator cuff tendinosis without evidence of tear. Fluid tracking along the infraspinatus tendon at the myotendinous junction region, nonspecific. Correlate for local inflammatory process or tenosynovitis. Reviewed, dictated and finalized at location . Impression: Degenerative SLAP tear of the labrum. Severe AC joint degenerative change. Mild rotator cuff tendinosis without evidence of tear. Fluid tracking along the infraspinatus tendon at the myotendinous junction jordan on, nonspecific. Correlate for local inflammatory process or tenosynovitis.
--- OUTSIDE RECORDS SUMMARY | 2024-10-18 14:26 | XMS_ITS | Encounter Summary ---
Author Organization [facility] Address [address] [place] [address] Care Team Providers Care Nickel Plant Operator Name Role Phone Antione Mcgraw MD Primary Care Provider [phone] Tray Truong MD Unavailable Otis Adan MD Unavailable [phone] Eliecer Harper MD Unavailable [phone] Tianna Lopes [facility]- Unavailable + Encounter Details Date Type Department Care Team (Late st Contact Info) Description 07/25/2020 Abstract [facility] [address] [place] [phone] Otis Adan MD [address] [place] [phone] Social History Tobacco Use Types Packs/Day Years [...] encounter Results * CBC (OUTSIDE LAB) (07/23/2020) WBC 7.6 3.8 - 10.8 HGB 15.1 13.2 - 17.1 HCT 46.4 38.5 - 50.0 PLT 271 140 - 400 RBC 5.42 4.20 - 5.80 07/23/2020 Result Marisa Mcgraw MD LAB-OUTSIDE/ABSTRACTED Final Result * BNP (07/23/2020) B TYPE NATRIURETIC PEPTIDE 1,039 <100 07/23/2020 us Anitone Mcgraw MD LABORATORY Final Result * HEMOGLOBIN, GLYCOSYLATED (07/23/2020) HGB A1C 6.5 <5.7 % 07/23/2020 us Antione Mcgraw MD LABORATORY Final Result * CMP (OUTSIDE LAB) (07/23/2020) SODIUM S/P/B 139 135 - 146 POTASSIUM [...] documented as of this encounter Care Teams Nickel Plant Operator Relationship Specialty Start Date End Date Antione Mcgraw MD [address] [place] [phone] PCP - General INTERNAL MEDICINE 04/28/20 Tray Truong MD [address] [place] [phone] Vascular/Retail Key Holder INTERNAL MEDICINE 04/28/20 Otis Adan MD [address] [place] [phone] Consulting Physician CARDIOVASCULAR DISEASE 09/11/20 Eliecer Harper MD [address] [place] [phone] INTERVENTIONAL CARDIOLOGY 06/22/23 Tianna Lopes [facility] [address] [place] [phone] Nurse Practitioner NURSE PRACTITIONER ADULT HEALTH 06/22/23 documented as of this encounter
--- OUTSIDE RECORDS SUMMARY | 2024-10-18 14:26 | XMS_ITS | Encounter Summary ---
Author Organization [facility] Address [address] [place] [address] Care Team Providers Care Care Navigator Name Role Phone Antione Mcgraw MD Primary Care Provider [phone] Tray Truong MD Unavailable Otis Adan MD Unavailable [phone] Eliecer Harper MD Unavailable [phone] Tianna Lopes [facility]- Unavailable + Encounter Details Date Type Department Care Team (Late st Contact Info) Description 06/30/2021 SHOTBLAST OPERATOR ONLY [facility] eld [address] [place] [address] Otis Adan MD [address] [place] [address] Social History Tobacco Use Types Packs/Day Years [...] around 130/80 mmHg. He has problems with Guillain-[place] are gradually improving. Mr. Diaz denies any [...] March of this year showed a resting ALEJANDRA of 1.1 on the right and a [...] should he have any questions or problems. #[id number] [place] [place] MILL OPERATOR documented in this encounter Plan of Treatment Not on file documented as of this encounter Visit Diagnoses Not on filedocumented in this encounter Care Teams Care Navigator Relationship Specialty Start Date End Date Antione Mcgraw MD [address] [place] [address] PCP - General INTERNAL MEDICINE 04/28/20 Tray Truong MD [address] [place] [phone] Vascular/Cheerleading Coach INTERNAL MEDICINE 04/28/20 Otis Adan MD [address] [place] [phone] Consulting Physician CARDIOVASCULAR DISEASE 09/11/20 Eliecer Harper MD [address] [place] [address] INTERVENTIONAL CARDIOLOGY 06/22/23 Tianna Lopes, [facility]- [address] [place] [phone] Nurse Practitioner NURSE PRACTITIONER ADULT HEALTH 06/22/23 documented as of this encounter
--- OUTSIDE RECORDS SUMMARY | 2024-10-18 14:26 | XMS_ITS | Encounter Summary ---
Author Organization [facility] Address [address] [place] [address] Care Team Providers Care Working Foreman Name Role Phone Antione Mcgraw MD Primary Care Provider [phone] Tray Truong MD Unavailable Otis Adan MD Unavailable [phone] Eliecer Harper MD Unavailable [phone] Tianna Lopes [facility]- Unavailable + Encounter Details Date Type Department Care Team (Late st Contact Info) Description 08/04/2020 Abstract [facility] [address] [place] [phone] Otis Adan MD [address] [place] [phone] Social History Tobacco Use Types Packs/Day Years [...] documented as of this encounter Care Teams Working Foreman Relationship Specialty Start Date End Date Antione Mcgraw MD [address] [place] [phone] PCP - General INTERNAL MEDICINE 04/28/20 Tray Truong MD [address] [place] [phone] Vascular/Respite Provider INTERNAL MEDICINE 04/28/20 Otis Adan MD [address] [place] [address] Consulting Physician CARDIOVASCULAR DISEASE 09/11/20 Eliecer Harper MD [address] [place] [address] INTERVENTIONAL CARDIOLOGY 06/22/23 Tianna Lopes, [facility]- [address] [place] [address] Nurse Practitioner NURSE PRACTITIONER ADULT HEALTH 06/22/23 documented as of this encounter
--- OUTSIDE RECORDS SUMMARY | 2024-10-18 14:26 | XMS_ITS | Encounter Summary ---
Author Organization [facility] Address [address] [place] [address] Care Team Providers Care Poacher Operator Name Role Phone Antione Mcgraw MD Primary Care Provider [phone] Tray Truong MD Unavailable Otis Adan MD Unavailable [phone] Eliecer Harper MD Unavailable [phone] Tianna Lopes [facility]- Unavailable + Encounter Details Date Type Department Care Team (Late st Contact Info) Description 03/20/2021 Abstract [facility] [address] [place] [phone] Otis Adan MD [address] [place] [address] Social History Tobacco Use Types Packs/Day Years [...] LAB-OUTSIDE/ABSTRACTED Final Result * HEMOGLOBIN, GLYCOSYLATED (02/05/2021) HGB A1C 5.2 <5.7 % 02/05/2021 us Doc [facility] Abstract LABORATORY Final Result * CMP (ABSTRACTED LAB) (02/05/2021) SODIUM S/P/B 137 136 - 145 POTASSIUM [...] on filedocumented in this encounter Care Teams Poacher Operator Relationship Specialty Start Date End Date Antione Mcgraw MD [address] [place] [address] PCP - General INTERNAL MEDICINE 04/28/20 Tray Truong MD [address] [place] [address] Vascular/Senior Accounts Payable Specialist INTERNAL MEDICINE 04/28/20 Otis Adan MD [address] [place] [address] Consulting Physician CARDIOVASCULAR DISEASE 09/11/20 Eliecer Harper MD [address] [place] [address] INTERVENTIONAL CARDIOLOGY 06/22/23 Tianna Lopes, [facility]- [address] [place] [phone] Nurse Practitioner NURSE PRACTITIONER ADULT HEALTH 06/22/23 documented as of this encounter
--- OUTSIDE RECORDS SUMMARY | 2024-10-18 14:26 | XMS_ITS | Clinical Summary ---
Author Organization [facility] Address [address] [place] [address] Care Team Providers Care Scarf Gluer Name Role Phone Antione Mcgraw MD Primary Care Provider [phone] Tray Truong MD Unavailable Eliecer Harper MD Unavailable [phone] Tianna Lopes [facility]- Unavailable +- Allergies No known active allergies Medications allopurinol [...] insufficiency 09/30/2020 Coronary artery disease invo lving [place] coronary artery of [place] heart without angina pectoris 07/31/2020 Ischemic cardiomyopathy 07/31/2020 Systolic heart failure ([facility]) 021 Abnormal echocardiogram 07/08/2020 Abnormal EKG 07/08/2020 PAD (peripheral artery disease) 04/28/2020 Ulcer of lower extremity wit h fat layer exposed, unspecified laterality ([facility]) 04/28/2020 Mixed hyperlipidemia 04/28/2020 Hypertension 04/28/2020 Lymphedema 04/28/2020 Numbness and tingling in both hands 10/14/2014 Weakness of both arms 10/14/2014 Weakness of both lower extremities 10/14/2014 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[facility]) Resolved Problems Problem Noted Date Diagnosed Date Resolved Date CHF (congestive heart failur e) ([facility]) 04/18/2021 Family History Medical History Relation Comments Cancer [...] Comments Blood Pressure 149/95 02/09/2024 10:56 AM PERSONAL CARE ASSISTANT Pulse 95 02/09/2024 10:56 AM PERSONAL CARE ASSISTANT Temperature 36.5 C (97.7 F) 09/05/2020 7:47 AM CDT Respiratory Rate 12 02/09/2024 10:5 6 AM PERSONAL CARE ASSISTANT Oxygen Saturation 99% 02/09/2024 10: 56 AM PERSONAL CARE ASSISTANT Inhaled Oxygen Concentration - - Weight 102.2 kg (225 lb 6.4 oz) 024 10:56 AM PERSONAL CARE ASSISTANT Height 175.3 cm (5' 9) 02/09/2024 10:5 6 AM PERSONAL CARE ASSISTANT Body Mass Index 33.29 02/09/2024 10:56 AM PERSONAL CARE ASSISTANT Plan of Treatment Health Maintenance Due Date Last Done Comments ASCVD Statin 1961 Colorectal Cancer Screening Colonoscopy (10 Years) 1961 Annual Physical 1964 Hepatitis C 07/10/1979 DTaP, Tdap and Td Vaccines ( 1 - Tdap) 1980 Pneumococcal Vaccine: 50+ Years (1 of 2 - PCV) 1980 Zoster Vaccines (1 of 2) 07/10/2011 RSV Immunization or 60+ Years (1 - Risk 60-74 years 1-dose series) 2021 ASCVD LDL 11/03/2022 11/03/2021, 06/21/2020 COVID-19 Vaccine ( - 2023-2 5 season) 2023 Meningococcal B Vaccine Aged Out No [...] 3:11 PM 07/31/2020 7:53 PM Care Teams Scarf Gluer Relationship Specialty Start Date End Date Antione Mcgraw MD [address] [place] [address] PCP - General INTERNAL MEDICINE 04/28/20 Tray Truong MD [address] [place] [phone] Vascular/High School Industrial Arts Teacher INTERNAL MEDICINE 04/28/20 Eliecer Harper MD [address] [place] [phone] INTERVENTIONAL CARDIOLOGY 06/22/23 Tianna Lopes [facility]- [address] [place] [address] Nurse Practitioner NURSE PRACTITIONER ADULT HEALTH 06/22/23
== END 2024-10-18 14:17 | disposition home or self-care (01) ==
PROVIDERS: PCP Internal Medicine; Visit Provider Internal Medicine
DX: M19.011 Primary osteoarthritis, right shoulder (principal); S43.431A Superior glenoid labrum lesion of right shoulder, initial encounter
CPT/HCPCS: 73221

== ENCOUNTER 2024-12-18 15:26 | Emergency (ER) | payer OTHER, SELFPAY ==
[2024-12-18] VITALS (23 sets, daily range): BP systolic 140–164; BP diastolic 108–140; PULSE 85–92; RESP 12–30; TEMP 37.1; O2SAT 94–100
--- NOTE | ~2024-12-18 | XR_ITS ---
EXAMINATION: XR chest 1V portable COMPARISON: No comparisons available. HISTORY: sob. WITH COUGH FINDINGS: Mild pulmonary venous congestion. No pneumothorax. Mild cardiomegaly. Mediastinal and hilar contours are within normal limits. Bony thorax no acute abnormality. Miscellaneous: None Impression: Mild CHF Reviewed, dictated and finalized at location P. Impression: Mild CHF
--- NOTE | 2024-12-18 15:24 | ECG_ITS ---
Test Date: 2024-12-18 15:27:51 Measurements Intervals [place] Rate: 91 P: 31 [place]: 256 QRS: -42 QRSD: 127 T: 111 QT: 404 QTc: 499 Interpretive Statements SINUS RHYTHM WITH FIRST DEGREE AV BLOCK POSSIBLE LEFT ATRIAL ENLARGEMENT INTRAVENTRICULAR CONDUCTION DELAY LEFT VENTRICULAR HYPERTROPHY AND ST-T CHANGE ANTEROLATERAL INFARCT, AGE INDETERMINATE INFERIOR INFARCT, AGE INDETERMINATE ABNORMAL ECG No previous ECG available for comparison Electronically Signed On 12-18-2024 16:50:36 CDT by Silvino Trotter D.O.
[2024-12-18 15:46] LABS: Hematocrit 47.0 % (42.0-52.0); Hemoglobin 15.2 g/dL (14.0-18.0); Immature Granulocyte Percent A 0.4 % (0-0.5); Lymphocytes Absolute Auto 1.33 K/mm3 (0.9-3.2); Mean Corpuscular HGB Conc 32.3 g/dl (32-36); Mean Corpuscular Hemoglobin 29.7 pg (26-34); Mean Corpuscular Volume 91.8 fl (80-100); Nucleated Red Blood Cells Absolute Auto 0.000 K/mm3 (0.0-0.012); Nucleated Red Blood Cells Perc 0.0 % (0.0-0.2); Platelet Count Result 340 k/mm3 (150-375); Red Blood Count 5.12 M/mm3 (4.6-6.20); White Blood Count 7.9 K/mm3 (4.5-10.0)
[2024-12-18 16:00] LABS: Alanine Aminotransferase 153 U/L (6-50); Albumin Level 3.8 g/dL (3.5-5.1); Alkaline Phosphatase 108 U/L (38-126); Anion Gap 11 mmol/L (4-12); Aspartate Amino Transferase 240 U/L (17-59); Bilirubin,Total 1.8 mg/dL (0.2-1.3); Blood Urea Nitrogen 16 mg/dL (9-20); Calcium 8.5 mg/dL (8.4-10.2); Carbon Dioxide 25 mmol/L (22-30); Chloride 93 mmol/L (98-107); Estimated CRCL calculation 93 ml/min; Estimated Glomerular Filt Rate > 60; Glucose 122 mg/dL (65-110); Potassium 3.5 mmol/L (3.4-5.0); Sodium 129 mmol/L (137-145); Total Protein 7.3 g/dL (6.3-8.2)
--- NOTE | 2024-12-18 16:30 | ED.SOB ---
HPI - SOB/Dyspnea General Chief Complaint: Shortness of Breath/Dyspnea Stated Complaint: sob Time Seen by Provider: 12/18/24 16:21 Source: patient and EMS Mode of arrival: EMS Limitations: no limitations History of Present Illness HPI Narrative: This is a 64-year-old male with history of systolic heart failure, peripheral arterial disease who presents the ED for cough and shortness of breath. Patient states for the past 4 days or so he has been having a dry cough with dyspnea on exertion. He has had some chest tightness with his coughs. He has also been having cold chills. Denies fevers, nausea vomiting, diarrhea constipation abdominal pain. No known sick contacts. Related Data Home Medications ?Medication ?Instructions ?Recorded ?Confirmed ?Last Taken ?Type allopurinol 100 mg tablet 200 mg PO BID 04/11/20 10/06/23 06/26/23 History (Zyloprim) paroxetine HCl 40 mg tablet 40 mg PO DAILY 04/11/20 10/06/23 06/26/23 History aspirin 81 mg tablet,delayed 81 mg PO DAILY 06/02/20 10/06/23 06/26/23 History release (Adult Low Dose Aspirin) carvedilol 6.25 mg tablet (Coreg) 3.125 mg PO BID 03/28/22 10/06/23 06/26/23 History sacubitril 97 mg-valsartan 103 mg 1 tablet PO BID 03/28/22 10/06/23 06/26/23 History tablet (Entresto) atorvastatin 20 mg tablet 20 mg PO DAILY 05/21/22 10/06/23 06/26/23 History furosemide 40 mg tablet 40 mg PO DAILY 05/21/22 10/06/23 06/26/23 History lisinopril 5 mg tablet 5 mg PO DAILY 05/21/22 10/06/23 06/26/23 History empagliflozin 10 mg tablet 10 mg PO DAILY 06/26/23 10/06/23 06/26/23 History (Jardiance) magnesium oxide 400 mg PO DAILY 06/26/23 10/06/23 06/26/23 History ticagrelor 90 mg tablet (Brilinta) 90 mg PO BID 06/26/23 10/06/23 06/26/23 History Allergies Allergy/AdvReac Type Severity Reaction Status Date / Time No Known Allergies Allergy Verified 12/18/24 15:28 [facility] Past Medical History Medical History Cellulitis of right lower limb Chronic combined systolic and diastolic CHF (congestive heart failure) Dependence on wheelchair Dysthymic disorder GERD (gastroesophageal reflux disease) 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 Other Unknown family medical history Social History Social History Smoking packs per day: 1 Smoking cigarettes per day: 20.0 Smoking status: Never smoker Tobacco type: cigarettes Smokeless tobacco user: chewing tobacco Second hand tobacco smoke exposure: No Smoking end date: 02/28/94 Additional smoking assessment comments: Chewing tobacco daily Alcohol intake: never Alcohol use details: quit 1 month ago Substance use: never Substance use type: does not use Lack of Transportation: No Lack of Food: Never True Current Housing: I Have Housing Concerned About Future Housing: No Difficulty Paying Gas/Electric Bills: No Difficulty Paying for Meds: No Currently Unemployed: No Education: High School Diploma/GED Difficulty w/ Childcare or Family Care: No Gender identity (if verbalized by the patient): Male Sexual Orientation (if Verbalized by the Patient): Straight or Heterosexual Spiritual care concerns: No Course Vital Signs Vital signs: Vital Signs Temperature 98.7 F 12/18/24 15:29 Pulse Rate 92 12/18/24 15:29 Respiratory Rate 22 H 12/18/24 15:29 Blood Pressure 154/120 H 12/18/24 15:29 Pulse Oximetry 99 12/18/24 15:29 Oxygen Delivery Room Air 12/18/24 15:29 Temperature 98.7 F 12/18/24 15:29 Pulse Rate 89 12/18/24 19:45 Respiratory Rate 24 H 12/18/24 19:45 Blood Pressure 164/117 H 12/18/24 19:31 Pulse Oximetry 96 12/18/24 19:45 Oxygen Delivery Room Air 12/18/24 17:43 MDM - SOB/Dyspnea MDM Narrative Medical decision making narrative: 64-year-old male presenting for dyspnea on exertion for the last few days. On initial evaluation, patient was in no acute distress, afebrile hemodynamically stable. He has mildly diminished breath sounds to the bases bilaterally. CBC was without significant abnormalities. He had mild hyponatremia at 129. LFTs were slightly elevated at AST 240 [place] [address]. Transaminitis likely due to vascular congestion. COVID/flu/RSV negative. Chest x-ray was consistent with CHF. EKG showed no significant changes. Patient was given 40 mg Lasix IV. Repeat troponin was stable. Patient remained asymptomatic throughout his ED course. Suspect his symptoms are due to a mild CHF exacerbation. He is not on any Lasix at home. He will be started on a course of Lasix. He was advised to follow-up with his occupational health nurse supervisor at in the next week for evaluation. Patient was agreeable to this plan. Given strict return precautions. Differential Diagnosis Differential diagnosis: Likely acute exacerbation of chronic obstructive airways disease, congestive heart failure, community acquired pneumonia and other (ACS, electrolyte abnormality) Medical Records Attestation: I reviewed the patient's medical records. Lab Data Attestation: I reviewed the patient's lab results. 12/18/24 15:39 12/18/24 15:39 Labs: Lab Results 12/18/24 12/18/24 12/18/24 Range/Units 15:39 17:22 18:26 WBC 7.9 (4.5-10.0) K/mm3 RBC 5.12 (4.6-6.20) M/mm3 Hgb 15.2 (14.0-18.0) g/dL Hct 47.0 (42.0-52.0) % MCV 91.8 (80-100) fl MCH 29.7 (26-34) pg MCHC 32.3 (32-36) g/dl RDW 14.9 H (11.5-14.5) % Plt Count 340 (150-375) k/mm3 MPV 9.4 (7.4-10.4) fl Immature Gran % (Auto) 0.4 (0-0.5) % Neut % (Auto) 70.6 (45.5-73.1) % Lymph % (Auto) 16.9 L (18.3-44.2) % [place] % (Auto) 10.3 H (2.6-8.5) % Eos % (Auto) 1.5 (0-4.4) % Baso % (Auto) 0.3 (0.2-1.2) % Lymph # (Auto) 1.33 (0.9-3.2) K/mm3 [place] # (Auto) 0.8 H (0.1-0.6) K/mm3 Eos # (Auto) 0.1 (0-0.3) K/mm3 Baso # (Auto) 0.0 (0.0-0.1) K/mm3 Abs Immat Gran (auto) 0.03 (0.00-0.031) K/mm3 Absolute Neuts (auto) 5.5 (1.3-6.7) K/mm3 Absolute Nucleated RBC 0.000 (0.0-0.012) K/mm3 Nucleated RBC % 0.0 (0.0-0.2) % Sodium 129 L (137-145) mmol/L Potassium 3.5 (3.4-5.0) mmol/L Chloride 93 L (98-107) mmol/L Carbon Dioxide 25 (22-30) mmol/L Anion Gap 11 (4-12) mmol/L BUN 16 (9-20) mg/dL Creatinine 0.86 (0.7-1.3) mg/dL Estim Creat Clear Calc 93 ml/min Estimated GFR > 60 (59 - ) Glucose 122 H (65-110) mg/dL Calcium 8.5 (8.4-10.2) mg/dL Total Bilirubin 1.8 H (0.2-1.3) mg/dL AST 240 H (17-59) U/L ALT 153 H (6-50) U/L Alkaline Phosphatase 108 (38-126) U/L Troponin I 0.025 0.027 (0.000-0.034) ng/mL NT-Pro-B Natriuret Pep 40599 H (19.9-100) pg/mL Total Protein 7.3 (6.3-8.2) g/dL Albumin 3.8 (3.5-5.1) g/dL Influenza A (RT-PCR) Negative (Negative) Influenza B (RT-PCR) Negative (Negative) RSV (RT-PCR) Negative (Negative) SARS-CoV-2 RNA (RT-PCR) Negative (Negative) Imaging Data Attestation: I personally reviewed and interpreted this imaging study as follows: Radiologist's impression: Impressions Chest X-Ray 12/18/24 15:48 Impression: Mild CHF ECG Data EKG #1: Attestation: I personally reviewed and interpreted this ECG as follows: ECG completion date: 12/18/24 ECG completion time: 15:27 Interpretation: Sinus rhythm with 1st degree AV block, left axis deviation, left atrial enlargement, intraventricular conduction delay, Q-waves and the inferior leads and Q-waves in anterolateral leads, no acute ST or T-wave changes EKG #2: Attestation: I personally reviewed and interpreted this ECG as follows: ECG completion date: 12/18/24 ECG completion time: 18:36 Interpretation: Sinus rhythm with first-degree AV block rate of 86, left axis deviation, left atrial enlargement intraventricular conduction delay, Q-waves in inferior leads Q-waves in anterolateral leads, no acute ST or T-wave changes. no significant change from earlier Discharge Plan Discharge Clinical Impression: Acute exacerbation of CHF (congestive heart failure) Qualifiers: Heart failure type: unspecified Qualified Code(s): I50.9 - Heart failure, unspecified Patient Disposition: Home Condition: Stable Instructions: Antibiotic Form, Heart Failure (ED) Additional Instructions: Your labs, chest x-ray, EKG were reassuring that there was no cardiac damage at this time. You were in mild heart failure. He was given a dose of Lasix here in the ED. He was given a prescription for Lasix to take this as prescribed. Follow-up with your occupational health nurse supervisor next week or with our occupational health nurse supervisor you are unable to get in with yours. Return to the ED for any new or worse symptoms. Patient Language: Mongolian Prescriptions: New furosemide [Lasix] 40 mg tablet 40 mg PO DAILY Qty: 14 0RF No Action allopurinol [Zyloprim] 100 mg tablet 200 mg PO BID paroxetine HCl 40 mg tablet 40 mg PO DAILY potassium chloride 20 mEq tablet,ER particles/crystals 40 meq PO DAILY Qty: 30 0RF furosemide 40 mg tablet 40 mg PO DAILY atorvastatin 20 mg tablet 20 mg PO DAILY lisinopril 5 mg Tablet 5 mg PO DAILY Brilinta 90 mg tablet 90 mg PO BID Jardiance 10 mg tablet 10 mg PO DAILY magnesium oxide 400 mg magnesium Tablet 400 mg PO DAILY aspirin [Adult Low Dose Aspirin] 81 mg tablet,delayed release (DR/EC) 81 mg PO DAILY Entresto 97-103 mg tablet 1 tablet PO BID carvedilol [Coreg] 6.25 mg tablet 3.125 mg PO BID Follow-up/Referrals: Antione Mcgraw MD [Primary Care Provider, Internal Medicine] Obdulia Grady DO [Physician, Cardiology]
[2024-12-18 17:13] LABS: NT Pro B Type Natriuretic Pept 10000 pg/mL (19.9-100)
[2024-12-18] MEDS: FUROSEMIDE INJ 40 MG/4 ML VIAL IV PUSH (17:42)
[2024-12-18 17:50] LABS: Troponin I 0.025 ng/mL (0.000-0.034)
[2024-12-18 18:07] LABS: Influenza A QL RT-PCR Negative (Negative); Influenza B QL RT-PCR Negative (Negative); RSV RNA, RT-PCR Negative (Negative); SARS-CoV-2 RNA PCR Negative (Negative)
--- NOTE | 2024-12-18 18:15 | PC.NURSE ---
Called sister, Saturnino, per patients request. Update givn.
--- NOTE | 2024-12-18 18:26 | ECG_ITS ---
Test Date: 2024-12-18 18:36:08 Measurements Intervals [place] Rate: 86 P: 50 SC: 259 QRS: -41 QRSD: 114 T: 84 QT: 399 QTc: 478 Interpretive Statements SINUS RHYTHM WITH FIRST DEGREE AV BLOCK POSSIBLE LEFT ATRIAL ENLARGEMENT INTRAVENTRICULAR CONDUCTION DELAY LOW QRS VOLTAGE IN PRECORDIAL LEADS LEFT VENTRICULAR HYPERTROPHY AND ST-T CHANGE INFERIOR INFARCT, AGE INDETERMINATE ANTEROLATERAL INFARCT, AGE INDETERMINATE BASELINE ARTIFACT- I, III, AVR, AVL, AVF, V4-V6 ABNORMAL ECG Compared to ECG 12/18/2024 15:27:51 NO SIGNIFICANT CHANGE Electronically Signed On 12-18-2024 20:14:52 CDT by Silvino Trotter D.O.
[2024-12-18 18:59] LABS: Troponin I 0.027 ng/mL (0.000-0.034)
--- NOTE | 2024-12-18 20:15 | PC.NURSE ---
RN contacted next of kin for patient pickling solution maker. Patient will be waiting in waiting room for ride.
== END 2024-12-18 20:21 | disposition home or self-care (01) ==
PROVIDERS: Emergency Provider Student in an Organized Health Care Education/Training Program; PCP Internal Medicine
DX: I50.42 Chronic combined systolic (congestive) and diastolic (congestive) heart failure (principal); Z20.822 Contact with and (suspected) exposure to COVID-19; I73.9 Peripheral vascular disease, unspecified; I11.0 Hypertensive heart disease with heart failure; G82.50 Quadriplegia, unspecified; G61.0 Guillain-Barre syndrome; E78.2 Mixed hyperlipidemia; K21.9 Gastro-esophageal reflux disease without esophagitis; F17.220 Nicotine dependence, chewing tobacco, uncomplicated; Z99.3 Dependence on wheelchair; Z87.01 Personal history of pneumonia (recurrent); Z86.0100 Personal history of colon polyps, unspecified; Z79.82 Long term (current) use of aspirin; Z79.899 Other long term (current) drug therapy; Z79.02 Long term (current) use of antithrombotics/antiplatelets; Z79.84 Long term (current) use of oral hypoglycemic drugs; I44.0 Atrioventricular block, first degree; R94.31 Abnormal electrocardiogram [ECG] [EKG]; I45.9 Conduction disorder, unspecified
CPT/HCPCS: 36415; 71045; 80053; 83880; 84484; 85025; 87637; 93005; 96374; 99284; J1938

== ENCOUNTER 2024-12-23 19:26 | Emergency (ER) | payer OTHER, SELFPAY ==
[2024-12-23] VITALS (22 sets, daily range): BP systolic 134–140; BP diastolic 97–104; PULSE 79–95; RESP 15–28; TEMP 36.6; O2SAT 94–100
--- NOTE | ~2024-12-23 | XR_ITS ---
Examination: XR chest 2V Clinical History: SOB Comparison: 12/18/2024 Technique: Portable AP Findings: Cardiomegaly. Diffusely increased interstitial markings. Mild bibasilar atelectasis and/or pleural effusions. No acute bony abnormality. IMPRESSION: 1. Mild interstitial pulmonary edema, with mild bibasilar atelectasis and/or pleural effusions. Reviewed, dictated and finalized at location R. IMPRESSION: 1. Mild interstitial pulmonary edema, with mild bibasilar atelectasis and/or p leural effusions.
--- NOTE | 2024-12-23 19:38 | ECG_ITS ---
Test Date: 2024-12-23 20:21:06 Measurements Intervals [place] Rate: 86 P: 38 MD: 228 QRS: -41 QRSD: 120 T: 126 QT: 451 QTc: 541 Interpretive Statements SINUS RHYTHM WITH FIRST DEGREE AV BLOCK WITH OCCASIONAL VENTRICULAR PREMATURE COMPLEXES POSSIBLE LEFT ATRIAL ENLARGEMENT LEFT VENTRICULAR HYPERTROPHY AND ST-T CHANGE ANTEROLATERAL INFARCT, AGE INDETERMINATE INFERIOR INFARCT, AGE INDETERMINATE ABNORMAL ECG Compared to ECG 12/18/2024 18:36:08 NO SIGNIFICANT CHANGE Electronically Signed On 12-24-2024 06:14:50 CDT by Silvino Trotter D.O.
--- NOTE | 2024-12-23 20:19 | ED.SOB ---
HPI - SOB/Dyspnea General Chief Complaint: Shortness of Breath/Dyspnea Stated Complaint: worsening SOB Time Seen by Provider: 12/23/24 20:11 Source: patient Mode of arrival: EMS Limitations: no limitations History of Present Illness HPI Narrative: This is a 64-year-old male with history of CHF, CAD, pulmonary hypertension who presents to the ED for shortness of breath. Patient states he has had worsening shortness of breath since his last ED visit 2 days ago. He has been taking the Lasix as prescribed. Denies chest pain, nausea vomiting, fevers, chills, cough, congestion. Related Data Home Medications ?Medication ?Instructions ?Recorded ?Confirmed ?Last Taken ?Type allopurinol 100 mg tablet 200 mg PO BID 04/11/20 10/06/23 06/26/23 History (Zyloprim) paroxetine HCl 40 mg tablet 40 mg PO DAILY 04/11/20 10/06/23 06/26/23 History aspirin 81 mg tablet,delayed 81 mg PO DAILY 06/02/20 10/06/23 06/26/23 History release (Adult Low Dose Aspirin) carvedilol 6.25 mg tablet (Coreg) 3.125 mg PO BID 03/28/22 10/06/23 06/26/23 History sacubitril 97 mg-valsartan 103 mg 1 tablet PO BID 03/28/22 10/06/23 06/26/23 History tablet (Entresto) atorvastatin 20 mg tablet 20 mg PO DAILY 05/21/22 10/06/23 06/26/23 History furosemide 40 mg tablet 40 mg PO DAILY 05/21/22 10/06/23 06/26/23 History lisinopril 5 mg tablet 5 mg PO DAILY 05/21/22 10/06/23 06/26/23 History empagliflozin 10 mg tablet 10 mg PO DAILY 06/26/23 10/06/23 06/26/23 History (Jardiance) magnesium oxide 400 mg PO DAILY 06/26/23 10/06/23 06/26/23 History ticagrelor 90 mg tablet (Brilinta) 90 mg PO BID 06/26/23 10/06/23 06/26/23 History Allergies Allergy/AdvReac Type Severity Reaction Status Date / Time No Known Allergies Allergy Verified 12/23/24 20:23 Review of Systems Review of Systems: Gen.: Denies fevers or chills Eyes: Denies eye pain or visual change ENT: Denies congestion Respiratory: As per HPI CV: Denies chest pain or palpitations GI: Denies abdominal pain nausea, emesis or diarrhea denies burning, urgency, frequency or hematuria Musculoskeletal: Denies back pain or muscle pain Neuro: Denies numbness, tingling, weakness or focal weakness Skin: Denies rash Except as documented, all other systems reviewed and negative [facility] Past Medical History Medical History Chronic combined systolic and diastolic CHF (congestive heart failure) Peripheral vascular disease Cellulitis of right lower limb Localized edema GERD (gastroesophageal reflux disease) Quadriplegia Dependence on wheelchair Personal history of colonic polyps Impaired fasting glucose 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 Other Unknown family medical history Social History Social History Smoking packs per day: 1 Smoking cigarettes per day: 20.0 Smoking status: Never smoker Tobacco type: cigarettes Smokeless tobacco user: chewing tobacco Second hand tobacco smoke exposure: No Smoking end date: 02/28/94 Additional smoking assessment comments: Chewing tobacco daily Alcohol intake: never Alcohol use details: quit 1 month ago Substance use: never Substance use type: does not use Lack of Transportation: No Lack of Food: Never True Current Housing: I Have Housing Concerned About Future Housing: No Difficulty Paying Gas/Electric Bills: No Difficulty Paying for Meds: No Currently Unemployed: No Education: High School Diploma/GED Difficulty w/ Childcare or Family Care: No Gender identity (if verbalized by the patient): Male Sexual Orientation (if Verbalized by the Patient): Straight or Heterosexual Spiritual care concerns: No Exam Narrative: APPEARANCE: No acute distress, nontoxic, resting in bed EYES: EOMI HEENT: Normocephalic, atraumatic, OMM RESPIRATORY: Diminished breath sounds at the bases CARDIOVASCULAR: Regular rate and rhythm without murmurs rubs or gallops. ABDOMINAL: Soft, nontender, nondistended, no rebound or guarding MUSCULOSKELETAl: Moves all extremities. No clubbing, cyanosis or edema. NEURO: Awake and alert. Following commands, speech normal, no focal deficits SKIN:: Warm, dry. No rashes lesions or abrasions PSYCHIATRIC: Normal affect/mood, Course Vital Signs Vital signs: Vital Signs Temperature 98 F 12/23/24 19:34 Pulse Rate 88 12/23/24 19:34 Respiratory Rate 18 12/23/24 19:34 Blood Pressure 140/97 H 12/23/24 19:34 Pulse Oximetry 99 12/23/24 19:34 Oxygen Delivery Room Air 12/23/24 19:34 Temperature 98 F 12/23/24 19:34 Pulse Rate 86 12/23/24 23:15 Respiratory Rate 16 12/23/24 23:15 Blood Pressure 138/103 H 12/23/24 22:16 Pulse Oximetry 98 12/23/24 23:15 Oxygen Delivery Room Air 12/23/24 20:26 MDM - SOB/Dyspnea MDM Narrative Medical decision making narrative: 64-year-old male Presenting for shortness of breath. On initial evaluation patient was in no acute distress afebrile, hemodynamic stable. Notable exam findings: mildly diminished breath sounds to the bases but no wheezes, rhonchi, rales. Notable lab findings: CBC without significant abnormalities. Potassium 3.3 from 3.5. BNP 57725, increased slightly by 500 from previous. Notable imaging findings: Chest x-ray showed mild pulmonary vascular congestion without consolidations. Patient was given 40 mg Lasix IV. He remained satting 99% on room air without any respiratory distress. Patient is appropriate for discharge at this time. His Lasix will be increased to 80 mg daily and he will be given a prescription for Klor-Con. He was advised to discuss his care with his jewel bearing polisher in [place] only this week. He was also advised follow-up with his PCP in the next week for re-evaluation. Patient was agreeable to this plan. Given strict return precautions. Differential Diagnosis Differential diagnosis: Likely acute exacerbation of chronic obstructive airways disease, congestive heart failure and community acquired pneumonia Medical Records Attestation: I reviewed the patient's medical records. Lab Data Attestation: I reviewed the patient's lab results. 12/23/24 20:41 12/23/24 20:41 Labs: Lab Results 12/23/24 12/23/24 Range/Units 20:41 20:41 WBC 10.0 (4.5-10.0) K/mm3 RBC 5.03 (4.6-6.20) M/mm3 Hgb 14.9 (14.0-18.0) g/dL Hct 45.9 (42.0-52.0) % MCV 91.3 (80-100) fl MCH 29.6 (26-34) pg MCHC 32.5 (32-36) g/dl RDW 15.4 H (11.5-14.5) % Plt Count 381 H (150-375) k/mm3 MPV 9.5 (7.4-10.4) fl Immature Gran % (Auto) 0.3 (0-0.5) % Neut % (Auto) 74.8 H (45.5-73.1) % Lymph % (Auto) 12.7 L (18.3-44.2) % [place] % (Auto) 10.1 H (2.6-8.5) % Eos % (Auto) 1.7 (0-4.4) % Baso % (Auto) 0.4 (0.2-1.2) % Lymph # (Auto) 1.27 (0.9-3.2) K/mm3 [place] # (Auto) 1.0 H (0.1-0.6) K/mm3 Eos # (Auto) 0.2 (0-0.3) K/mm3 Baso # (Auto) 0.0 (0.0-0.1) K/mm3 Abs Immat Gran (auto) 0.03 (0.00-0.031) K/mm3 Absolute Neuts (auto) 7.5 H (1.3-6.7) K/mm3 Absolute Nucleated RBC 0.000 (0.0-0.012) K/mm3 Nucleated RBC % 0.0 (0.0-0.2) % Sodium 134 L (137-145) mmol/L Potassium 3.3 L (3.4-5.0) mmol/L Chloride 97 L (98-107) mmol/L Carbon Dioxide 24 (22-30) mmol/L Anion Gap 13 H (4-12) mmol/L BUN 28 H D (9-20) mg/dL Creatinine 1.05 (0.7-1.3) mg/dL Estim Creat Clear Calc 76 ml/min Estimated GFR > 60 (59 - ) Glucose 126 H (65-110) mg/dL Calcium 8.6 (8.4-10.2) mg/dL Total Bilirubin 1.2 (0.2-1.3) mg/dL AST 43 (17-59) U/L ALT 120 H (6-50) U/L Alkaline Phosphatase 125 (38-126) U/L NT-Pro-B Natriuret Pep 02502 H Cancelled (19.9-100) pg/mL Total Protein 6.8 (6.3-8.2) g/dL Albumin 3.5 (3.5-5.1) g/dL Imaging Data Attestation: I personally reviewed and interpreted this imaging study as follows: My impression: Chest x-ray: Mild pulmonary vascular congestion may be slightly worse from previous. Discharge Plan Discharge Clinical Impression: CHF (congestive heart failure) Qualifiers: Heart failure type: unspecified Heart failure chronicity: acute on chronic Qualified Code(s): I50.9 - Heart failure, unspecified Patient Disposition: Home Condition: Stable Instructions: Antibiotic Form, Heart Failure (ED) Additional Instructions: Increase your Lasix to 80 mg daily. Take prednisone as prescribed. Follow-up with your PCP in the next week for re-evaluation. Follow-up with your jewel bearing polisher in the next week for re-evaluation. Return to the ED for any new or worsening symptoms. Patient Language: Arabic Prescriptions: New furosemide 80 mg tablet 80 mg PO DAILY Qty: 14 0RF potassium chloride [K-Tab] 20 mEq tablet extended release 40 meq PO DAILY 14 Days Qty: 28 0RF No Action allopurinol [Zyloprim] 100 mg tablet 200 mg PO BID paroxetine HCl 40 mg tablet 40 mg PO DAILY potassium chloride 20 mEq tablet,ER particles/crystals 40 meq PO DAILY Qty: 30 0RF furosemide 40 mg tablet 40 mg PO DAILY atorvastatin 20 mg tablet 20 mg PO DAILY lisinopril 5 mg Tablet 5 mg PO DAILY Brilinta 90 mg tablet 90 mg PO BID Jardiance 10 mg tablet 10 mg PO DAILY magnesium oxide 400 mg magnesium Tablet 400 mg PO DAILY aspirin [Adult Low Dose Aspirin] 81 mg tablet,delayed release (DR/EC) 81 mg PO DAILY Entresto 97-103 mg tablet 1 tablet PO BID carvedilol [Coreg] 6.25 mg tablet 3.125 mg PO BID furosemide [Lasix] 40 mg tablet 40 mg PO DAILY Qty: 14 0RF Follow-up/Referrals: Antione Mcgraw MD [Primary Care Provider, Internal Medicine]
[2024-12-23] MEDS: FUROSEMIDE INJ 40 MG/4 ML VIAL IV PUSH (20:41)
[2024-12-23 20:48] LABS: Hematocrit 45.9 % (42.0-52.0); Hemoglobin 14.9 g/dL (14.0-18.0); Immature Granulocyte Percent A 0.3 % (0-0.5); Lymphocytes Absolute Auto 1.27 K/mm3 (0.9-3.2); Mean Corpuscular HGB Conc 32.5 g/dl (32-36); Mean Corpuscular Hemoglobin 29.6 pg (26-34); Mean Corpuscular Volume 91.3 fl (80-100); Nucleated Red Blood Cells Absolute Auto 0.000 K/mm3 (0.0-0.012); Nucleated Red Blood Cells Perc 0.0 % (0.0-0.2); Platelet Count Result 381 k/mm3 (150-375); Red Blood Count 5.03 M/mm3 (4.6-6.20); White Blood Count 10.0 K/mm3 (4.5-10.0)
[2024-12-23 21:21] LABS: Alanine Aminotransferase 120 U/L (6-50); Albumin Level 3.5 g/dL (3.5-5.1); Alkaline Phosphatase 125 U/L (38-126); Anion Gap 13 mmol/L (4-12); Aspartate Amino Transferase 43 U/L (17-59); Bilirubin,Total 1.2 mg/dL (0.2-1.3); Blood Urea Nitrogen 28 mg/dL (9-20); Calcium 8.6 mg/dL (8.4-10.2); Carbon Dioxide 24 mmol/L (22-30); Chloride 97 mmol/L (98-107); Estimated CRCL calculation 76 ml/min; Estimated Glomerular Filt Rate > 60; Glucose 126 mg/dL (65-110); Potassium 3.3 mmol/L (3.4-5.0); Sodium 134 mmol/L (137-145); Total Protein 6.8 g/dL (6.3-8.2)
[2024-12-23 21:29] LABS: NT Pro B Type Natriuretic Pept 10500 pg/mL (19.9-100)
--- NOTE | 2024-12-23 22:29 | PC.NURSE ---
This RN went to perform a ambulation assessment with pulse ox, patient states I can't because I don't have my special braces with me to walk, they are at home. ERP notified.
--- NOTE | 2024-12-23 23:23 | PC.NURSE ---
This RN called Saturnino, patients family member upon request to have them come pick him up. Saturnino states she will be on her way.
== END 2024-12-23 23:42 | disposition home or self-care (01) ==
PROVIDERS: Emergency Provider Student in an Organized Health Care Education/Training Program; PCP Internal Medicine
DX: I11.0 Hypertensive heart disease with heart failure (principal); I50.9 Heart failure, unspecified; K21.9 Gastro-esophageal reflux disease without esophagitis; E78.5 Hyperlipidemia, unspecified; R94.31 Abnormal electrocardiogram [ECG] [EKG]; Z79.82 Long term (current) use of aspirin
CPT/HCPCS: 36415; 71046; 80053; 83880; 85025; 93005; 96374; 99284; J1938; J7512

== ENCOUNTER 2024-12-26 13:53 | Outpatient (CLI) | payer OTHER, SELFPAY ==
[2024-12-26 14:11] LABS: Hematocrit 46.6 % (40.0-54.0); Hemoglobin 14.8 g/dL (14.0-18.0); Mean Corpuscular HGB Conc 31.8 g/dL (32-36); Mean Corpuscular Hemoglobin 29.2 pg (27.0-31.0); Mean Corpuscular Volume 91.9 fL (78.0-102.0); Platelet Count Result 341 K/mm3 (150-420); Red Blood Count 5.07 M/mm3 (4.70-6.10); White Blood Count 7.4 K/mm3 (4.8-10.8)
[2024-12-26 14:39] LABS: Alanine Aminotransferase 55 U/L (6-50); Albumin Level 3.7 g/dL (3.5-5.1); Alkaline Phosphatase 79 U/L (38-126); Anion Gap 13 mmol/L (4-12); Aspartate Amino Transferase 23 U/L (17-59); Bilirubin,Total 0.9 mg/dL (0.2-1.3); Blood Urea Nitrogen 17 mg/dL (9-20); Calcium 9.0 mg/dL (8.4-10.2); Carbon Dioxide 25 mmol/L (22-30); Chloride 101 mmol/L (98-107); Estimated Glomerular Filt Rate > 60; Glucose 133 mg/dL (65-110); Osmolality Calculated 291 mOsm/kg (285-295); Potassium 4.0 mmol/L (3.4-5.0); Sodium 139 mmol/L (137-145); Total Protein 6.3 g/dL (6.3-8.2)
[2024-12-26 14:48] LABS: NT Pro B Type Natriuretic Pept 4760 pg/mL (19.9-100)
--- OUTSIDE RECORDS SUMMARY | 2024-12-26 15:35 | XMS_ITS | Clinical Summary ---
Author Organization [facility] Address [address] [place] [address] Care Team Providers Care Cosmetic Account Coordinator Name Role Phone Antione Mcgraw MD Primary Care Provider [phone] Tray Truong MD Unavailable Eliecer Harper MD Unavailable [phone] Tianna Lopes [facility]- Unavailable +- Allergies No known active allergies [...] a day 60 tablet 6 06/07/2023 Active carvedilol (COREG) 3.125 MG tablet Take 2 tablets (6.25 mg total) by mouth 2 (two) times daily. 60 tablet 11 02/09/2024 Active BRILINTA 90 MG tablet TAKE ONE TABLET BY MOUTH TWICE A DAY 60 tablet 8 11/05/2024 Active Active Problems Problem Noted Date Diagnosed Date Leg edema 09/30/2020 Chronic venous insufficiency 09/30/2020 Coronary artery disease invo lving [place] coronary artery of [place] heart without angina pectoris 07/31/2020 Ischemic cardiomyopathy 07/31/2020 Systolic heart failure 07/08/2020 Abnormal echocardiogram 07/08/2020 Abnormal EKG 07/08/2020 PAD (peripheral artery disease) 04/28/2020 Ulcer of lower extremity wit h fat layer exposed, unspecified laterality 04/28/2020 Mixed hyperlipidemia 04/28/2020 Hypertension 04/28/2020 Lymphedema 04/28/2020 Numbness and tingling in both hands 10/14/2014 Weakness of both arms 10/14/2014 Weakness of both lower extremities 10/14/2014 Guillain Dyer syndrome Resolved Problems Problem Noted Date Diagnosed Date Resolved Date CHF (congestive heart failure) 04/18/2021 Family History Medical History Relation Comments Cancer Father Kidney Disease Mother Relation Status Comments Father Maternal Grandfather Maternal Grandmother Mother Paternal Grandfather Paternal Grandmother Sister 1 Alive Sister 2 Alive Social History Tobacco Use Types Packs/Day Years Used Date Smoking Tobacco: Former Cigarettes Q uit: 1999 Smokeless Tobacco: Former Chew Tobacco Cessation:Counseling Given: [...] Comments Blood Pressure 149/95 02/09/2024 10:56 AM MILLED RICE BROKER Pulse 95 02/09/2024 10:56 AM [employer] Temperature 36.5 C (97.7 F) 09/05/2020 7:47 AM CDT Respiratory Rate 12 02/09/2024 10:5 6 AM [employer]OKER Oxygen Saturation 99% 02/09/2024 10: 56 AM [employer]ICE [employer]ER Inhaled Oxygen Concentration - - Weight 102.2 kg (225 lb 6.4 oz) 024 10:56 AM [employer]OK[employer] Height 175.3 cm (5' 9) 02/09/2024 10:5 6 AM [employer]OK[employer] Body Mass Index 33.29 02/09/2024 10:56 AM M[employer]ED [employer]ICE BROKER Plan of Treatment Health Maintenance Due Date [...] 11/03/2022 11/03/2021, 06/21/2020 COVID-19 Vaccine (1 - 2024-2 6 season) 2024 Influenza Adult (#1) 2024 Hepatitis A Vaccines Aged Out No long er eligible based on patient's age to complete this topic Meningococcal B Vaccine Aged Out No l [...] Most Recently Relevant to Health Maintenance Insurance [facility] [address] [phone] [employer] [employer] Advance Directives * Full Code (Latest Code Status on File) Date Activated Date Inactivated Comments 07/31/2020 3:11 PM 07/31/2020 7:53 PM Care Teams Cosmetic Account Coordinator Relationship Specialty Start Date End Date Antione Mcgraw MD [address] [place] [phone] PCP - General INTERNAL MEDICINE 04/28/20 Tray Truong MD [address] [place] [phone] Vascular/Strand Forming Machine Operator INTERNAL MEDICINE 04/28/20 Eliecer Harper MD [address] [place] [phone] INTERVENTIONAL CARDIOLOGY 06/22/23 Tianna Lopes ANP- [address] [place] [id number] Nurse Practitioner NURSE PRACTITIONER ADULT HEALTH 06/22/23
--- OUTSIDE RECORDS SUMMARY | 2024-12-26 15:35 | XMS_ITS | Encounter Summary ---
Author Organization [facility] Address [address] [place] [address] Care Team Providers Care Loss Prevention Research Engineer Name Role Phone Antione Mcgraw MD Primary Care Provider [phone] Tray Truong MD Unavailable Otis Adan MD Unavailable [phone] Eliecer Harper MD Unavailable [phone] Tianna Lopes [facility]- Unavailable + Encounter Details Date Type Department Care Team (Late st Contact Info) Description 03/20/2021 Abstract [facility] [address] [place] [phone] Otis Adan MD [address] [place] [address] Social History Tobacco Use Types Packs/Day Years [...] on filedocumented in this encounter Care Teams Loss Prevention Research Engineer Relationship Specialty Start Date End Date Antione Mcgraw MD [address] [place] [address] PCP - General INTERNAL MEDICINE 04/28/20 Tray Truong MD [address] [place] [address] Vascular/Hydraulic Press Servicer INTERNAL MEDICINE 04/28/20 Otis Adan MD [address] [place] [address] Consulting Physician CARDIOVASCULAR DISEASE 09/11/20 Eliecer Harper MD [address] [place] [address] INTERVENTIONAL CARDIOLOGY 06/22/23 Tianna Lopes, [facility]- [address] [place] [id number] Nurse Practitioner NURSE PRACTITIONER ADULT HEALTH 06/22/23 documented as of this encounter
--- OUTSIDE RECORDS SUMMARY | 2024-12-26 15:35 | XMS_ITS | Encounter Summary ---
Author Organization [facility] Address [address] [place] [address] Care Team Providers Care Chenille Machine Operator Name Role Phone Antione Mcgraw MD Primary Care Provider [phone] Tray Truong MD Unavailable Otis Adan MD Unavailable [phone] Eliecer Harper MD Unavailable [phone] Tianna Lopes [facility]- Unavailable + Encounter Details Date Type Department Care Team (Late st Contact Info) Description 08/04/2020 Abstract [facility] [address] [place] [phone] Otis Adan MD [address] [place] [phone] Social History Tobacco Use Types Packs/Day Years [...] documented as of this encounter Care Teams Chenille Machine Operator Relationship Specialty Start Date End Date Antione Mcgraw MD [address] [place] [phone] PCP - General INTERNAL MEDICINE 04/28/20 Tray Truong MD [address] [place] [phone] Vascular/Blow Machine Tender Starch Spraying INTERNAL MEDICINE 04/28/20 Otis Adan MD [address] [place] [address] Consulting Physician CARDIOVASCULAR DISEASE 09/11/20 Eliecer Harper MD [address] [place] [address] INTERVENTIONAL CARDIOLOGY 06/22/23 Tianna Lopes, [facility]- [address] [place] [id number] Nurse Practitioner NURSE PRACTITIONER ADULT HEALTH 06/22/23 documented as of this encounter
--- OUTSIDE RECORDS SUMMARY | 2024-12-26 15:35 | XMS_ITS | Encounter Summary ---
Author Organization [facility] Address [address] [place] [address] Care Team Providers Care Ui Programmer Name Role Phone Antione Mcgraw MD Primary Care Provider Tray Truong MD Unavailable Otis Adan MD Unavailable [phone] Eliecer Harper MD Unavailable [phone] Tianna Lopes [facility]- Unavailable + Encounter Details Date Type Department Care Team (Late st Contact Info) Description 07/25/2020 Abstract [facility] [address] [place] [phone] Otis Adan MD [address] [place] [address] Social History Tobacco Use Types Packs/Day Years [...] documented as of this encounter Care Teams Ui Programmer Relationship Specialty Start Date End Date Antione Mcgraw MD [address] [place] [phone] PCP - General INTERNAL MEDICINE 04/28/20 Tray Truong MD [address] [place] [phone] Vascular/Shank Cutter INTERNAL MEDICINE 04/28/20 Otis Adan MD [address] [place] [phone] Consulting Physician CARDIOVASCULAR DISEASE 09/11/20 Eliecer Harper MD [address] [place] [phone] INTERVENTIONAL CARDIOLOGY 06/22/23 [facility]opes [facility] [address] [place] [id number] Nurse Practitioner NURSE PRACTITIONER ADULT HEALTH 06/22/23 documented as of this encounter
== END 2024-12-26 13:54 | disposition home or self-care (01) ==
LOC: CHSLAB 13:54
PROVIDERS: PCP Internal Medicine; Visit Provider Internal Medicine
DX: I50.9 Heart failure, unspecified (principal)
CPT/HCPCS: 36415; 80053; 83880; 85027

== ENCOUNTER 2025-02-14 10:21 | Outpatient (CLI) | payer OTHER, SELFPAY ==
[2025-02-14 12:21] LABS: Hematocrit 52.4 % (40.0-54.0); Hemoglobin 17.1 g/dL (14.0-18.0); Mean Corpuscular HGB Conc 32.6 g/dL (32-36); Mean Corpuscular Hemoglobin 29.7 pg (27.0-31.0); Mean Corpuscular Volume 91.0 fL (78.0-102.0); Platelet Count Result 283 K/mm3 (150-420); Red Blood Count 5.76 M/mm3 (4.70-6.10); White Blood Count 7.6 K/mm3 (4.8-10.8)
[2025-02-14 12:34] LABS: Alanine Aminotransferase 34 U/L (6-50); Albumin Level 4.3 g/dL (3.5-5.1); Alkaline Phosphatase 121 U/L (38-126); Anion Gap 13 mmol/L (4-12); Aspartate Amino Transferase 40 U/L (17-59); Bilirubin,Total 0.8 mg/dL (0.2-1.3); Blood Urea Nitrogen 14 mg/dL (9-20); Calcium 9.6 mg/dL (8.4-10.2); Carbon Dioxide 30 mmol/L (22-30); Chloride 97 mmol/L (98-107); Cholesterol 138 mg/dL (0-200); Creatine Kinase 63 U/L (55-170); Estimated Glomerular Filt Rate > 60; Glucose 114 mg/dL (65-110); HDL Direct 44 mg/dL; Osmolality Calculated 291 mOsm/kg (285-295); Potassium 4.2 mmol/L (3.4-5.0); Sodium 140 mmol/L (137-145); Total Protein 7.6 g/dL (6.3-8.2); Triglycerides 347 mg/dL (<150); Uric Acid 5.9 mg/dL (3.5-8.5)
[2025-02-14 12:41] LABS: Hemoglobin A1C 5.8 % (<5.7)
[2025-02-14 12:42] LABS: MALB Creatinine Ratio 5.3 mg/g (0-30)
[2025-02-14 12:46] LABS: Add Urine Microscopic? NO; Appearance Urine Clear (Clear); Glucose Urine UA 3+ (Negative); Leukocyte Esterase Ur Negative (Negative); NT Pro B Type Natriuretic Pept 2240 pg/mL (19.9-100); Nitrate Urine Negative (Negative); Specific Grav Ur 1.015 (1.010-1.020)
[2025-02-14 12:49] LABS: Free T3 3.26 pg/mL (2.18-3.98)
[2025-02-14 12:53] LABS: Free T4 Free Thyroxine 1.16 ng/dL (0.78-2.19)
[2025-02-14 13:07] LABS: Prostate Specific Antigen 1.2 ng/mL (< OR = 4.0); Thyroid Stimulating Hormone 1.640 uIU/mL (0.465-4.680)
== END 2025-02-14 10:22 | disposition home or self-care (01) ==
PROVIDERS: PCP Internal Medicine; Visit Provider Internal Medicine
DX: I50.9 Heart failure, unspecified (principal); I25.10 Atherosclerotic heart disease of native coronary artery without angina pectoris; E78.2 Mixed hyperlipidemia; Z12.5 Encounter for screening for malignant neoplasm of prostate; D75.1 Secondary polycythemia; E79.0 Hyperuricemia without signs of inflammatory arthritis and tophaceous disease; E11.51 Type 2 diabetes mellitus with diabetic peripheral angiopathy without gangrene; I11.0 Hypertensive heart disease with heart failure
CPT/HCPCS: 36415; 80053; 80061; 81003; 82043; 82550; 83036; 83880; 84153; 84439; 84443; 84481; 84550; 85027; G0103